=== PATIENT | female | born 1960 | race Caucasian/White ===

== ENCOUNTER 2019-06-04 06:32 | Outpatient (CLI) | payer MEDICARE, MEDICAID, SELFPAY ==
--- NOTE | ~2019-06-04 | MR_ITS ---
EXAMINATION: MR hip RT wo con DATE: 06/04/2019 07:52 INDICATION: Right hip and groin pain. TECHNIQUE: Magnetic resonance imaging (MRI) of the right hip was performed without intravenous contr ast. Sequences included full-field axial PD-weighted FS FSE and T1-weighted FSE, coronal of the pelvi s with PD-weighted FS FSE, small field of view of the right hip with axial PD-weighted FS FSE, sagit yasmeen PD-weighted FS FSE and coronal PD weighted FS FSE. Additional radial T1-weighted FGR oriented ort hogonal to the acetabular rim were obtained for evaluation of the labrum. COMPARISON: CT abdomen and pelvis dated 12/27/2018 FINDINGS: Bones/labrum/cartilage: Alignment is normal. No fracture, avascular necrosis or pathologic marrow replacing process. There i s diffuse macerated appearing degenerative tearing of the right acetabular labrum which appears thick ened with globular appearance and containing multiple small intrasubstance ganglion cysts. Mild osteo arthritis at the right hip with partial thickness cartilage loss resulting in mild nonuniform joint s pace narrowing. Focal deep fissuring with mild underlying subarticular edema at the cephalad aspect o f the acetabulum. Similar appearance although with less severe labral degeneration suggest at the lef t hip but which is not diagnostically evaluated on the larger field of view images. Likely paralabral cyst extends 1.9 cm cephalad from the anterosuperior left acetabulum measuring 1.7 x 0.7 cm in maxim al transaxial dimensions at the lateral margin of the anterior inferior iliac spine. There is mild juliann mbar levocurvature with severe spondylosis at L3-L4. Fluid: Symmetric physiologic amount of fluid within both hip joints. Soft tissues: Normal and symmetric muscle bulk and signal in the pelvis and visualized proximal thighs. Relatively symmetric mild tendinopathy with minimal underlying bursitis at the bilateral gluteus medius and mini mus tendons but without discrete tendon tear. The iliopsoas and proximal hamstring tendons are normal . Limited evaluation of visceral organs of the pelvis is unremarkable. No pathologically enlarged pe lvic/inguinal lymphadenopathy. IMPRESSION: 1. Mild right hip osteoarthritis with small region of high-grade chondral malacia the superior acetab ulum and with severe diffuse labral degeneration. 2. Similar findings suggested at the left hip with associated large para labral cyst on the larger fi eld of view images. 3. Symmetric mild gluteus medius and minimus tendinopathy without tear and with minimal underlying bu rsitis. Reviewed, dictated and finalized at location A. ORDER PERSON IMPRESSION: 1. Mild right hip osteoarthritis with small region of high-grade chondral malac ia the superior acetabulum and with severe diffuse labral degeneration. 2. Similar findings suggested at the left hip with associated large para labral cyst on the larger field of view images. 3. Symmetric mild gluteus medius and minimus tendinopathy without tear and with minimal underlying bursitis.
== END 2019-06-04 06:33 | disposition home or self-care (01) ==
LOC: ANHIMG 06:38
PROVIDERS: Visit Provider Orthopaedic Surgery
DX: M16.11 Unilateral primary osteoarthritis, right hip (principal)
CPT/HCPCS: 73721

== ENCOUNTER 2019-11-05 14:13 | Outpatient (CLI) | payer MEDICARE, MEDICAID, SELFPAY ==
--- NOTE | ~2019-11-05 | MM_ITS ---
EXAMINATION: MM screening jes BI w umesh HISTORY: Screening mammogram TECHNIQUE: Craniocaudal and mediolateral oblique 3-D tomosynthesis images were obtained and synthetic 2-D images were generated. CAD analysis was submitted and interpreted. COMPARISON: 05/05/2018 bilateral digital screening mammogram BREAST PARENCHYMAL COMPOSITION: There are scattered areas of fibroglandular density. FINDINGS: There is postoperative change from left partial mastectomy for history of left breast malig chantale. There is no evidence of suspicious mass, calcification, or architectural distortion to suggest malignancy in either breast. There has been no suspicious interval change. IMPRESSION: 1. Status post left partial mastectomy for history of breast cancer. No mammographic evidence of jaydon gnancy. 2. Recommend routine screening mammography in one year. BI-RADS Category 2: Benign finding(s). Reviewed, dictated and finalized at location A. IMPRESSION: 1. Status post left partial mastectomy for history of breast cancer. No mammogr aphic evidence of malignancy. 2. Recommend routine screening mammography in one year. BI-RADS Category 2: Benign finding(s).
== END 2019-11-05 14:14 | disposition home or self-care (01) ==
LOC: ANHIMG 14:15
PROVIDERS: PCP Nurse Practitioner Psychiatric/Mental Health; Visit Provider Internal Medicine
DX: Z12.31 Encounter for screening mammogram for malignant neoplasm of breast (principal)
CPT/HCPCS: 77063; 77067

== ENCOUNTER 2020-03-01 11:08 | Emergency (ER) | payer MEDICARE, MEDICAID, SELFPAY ==
--- NOTE | ~2020-03-01 | XR_ITS ---
EXAMINATION: XR chest 2V EXAM DATE: 03/01/2020 12:44 INDICATION: Palpitations and shortness of air. TECHNIQUE: Frontal and lateral projections of the chest obtained and reviewed. Comparison is made to prior examination from 04/27/2017. FINDINGS: The lungs are clear. There are no pleural effusions. The cardiomediastinal silhouette is within normal limits. There is no pneumothorax suspected. The bones and soft tissues are unremarkab le. IMPRESSION: No acute cardiopulmonary findings. Reviewed, dictated and finalized at location A. R HOT WATER INSTALLER
--- NOTE | 2020-03-01 11:14 | ECG_ITS ---
Measurements Intervals [place] Rate: 84 P: 65 KS: 139 QRS: 76 QRSD: 81 T: 60 QT: 353 QTc: 419 Interpretive Statements SINUS RHYTHM POSSIBLE LEFT ATRIAL ENLARGEMENT CANNOT RULE OUT SEPTAL INFARCT, AGE INDETERMINATE BASELINE ARTIFACT- I, II, III, AVR, AVL, AVF ABNORMAL ECG Electronically Signed On 03-05-2020 12:09:49 [employer]ERING CHEF by Maxim Wahl D.O.
[2020-03-01 11:26] VITALS: BP 110/85; PULSE 84; RESP 20; TEMP 36.4; O2SAT 100
[2020-03-01 12:42] LABS: Basophils Absolute Auto 0.1 K/mm3 (0.0-0.1); Basophils Percent Auto 0.6 % (0.2-1.2); Eosinophils Absolute Auto 0.1 K/mm3 (0-0.3); Eosinophils Percent Auto 1.5 % (0-4.4); Hematocrit 49.5 % (37.0-47.0); Hemoglobin 16.9 g/dL (12.0-15.0); Immature Granulocyte Absolute 0.03 K/mm3 (0.00-0.031); Immature Granulocyte Percent A 0.3 % (0-0.5); Lymphocytes Absolute Auto 1.51 K/mm3 (0.9-3.2); Lymphocytes Percent Auto 15.8 % (18.3-44.2); Mean Corpuscular HGB Conc 34.1 g/dl (32-36); Mean Corpuscular Hemoglobin 32.6 pg (26-34); Mean Corpuscular Volume 95.4 fl (80-100); Mean Platelet Volume 9.3 fl (7.4-10.4); Monocytes Absolute Auto 0.9 K/mm3 (0.1-0.6); Monocytes Percent Auto 9.8 % (2.6-8.5); Neutrophils Absolute Auto 6.9 K/mm3 (1.3-6.7); Platelet Count Result 291 k/mm3 (150-375); Red Blood Count 5.19 M/mm3 (4.2-5.4); Red Cell Distribution Width 13.9 % (11.5-14.5); White Blood Count 9.6 K/mm3 (4.5-10.0)
[2020-03-01 12:54] LABS: Anion Gap 9 mmol/L (8-16); Blood Urea Nitrogen 14 mg/dL (7-17); Calcium 9.4 mg/dL (8.4-10.2); Carbon Dioxide 26 mmol/L (22-30); Chloride 107 mmol/L (98-107); Estimated CRCL calculation 63 ml/min; Estimated Glomerular Filt Rate > 60; Glucose 93 mg/dL (65-105); Magnesium 1.9 mg/dL (1.6-2.3); Potassium 4.5 mmol/L (3.4-5.0); Sodium 142 mmol/L (137-145)
--- NOTE | 2020-03-01 12:56 | ED.ARRPALP ---
HPI - Arrhythmia/Palpitations General Chief Complaint: Arrhythmia/Palpitations Stated Complaint: cp/palpitations Time Seen by Provider: 03/01/20 12:04 History of Present Illness HPI narrative: Patient is a 59-year-old female who presents ER with heart palpitations. EMS recognized the rhythm to be SVT. They gave her 6 of adenosine which converted her rhythm. Patient regimen was having shortness of breath that was welling up to behind her eyes. No chest pain or chest pressure. She felt like she had just run a long distance. She has had issues with this since she was a young woman. She sees a quill stripper and takes metoprolol 25 mg to help control her heart rate. She is typically able to controlled on her own but could not today. She reports that she has paroxysmal atrial tachycardia. Related Data Home Medications Medication Instructions Recorded Confirmed venlafaxine 75 mg tablet,extended 75 mg PO DAILY 03/06/19 release 24 hr anastrozole 1 mg tablet 1 mg PO DAILY 03/07/19 ropinirole 1 mg tablet 1 mg PO BID 03/07/19 umeclidinium 62.5 mcg/actuation 1 inhalation INHALATION DAILY 03/07/19 blister powder for inhalation cilostazol mg 03/01/20 metoprolol succinate PO 03/01/20 Allergies Allergy/AdvReac Type Severity Reaction Status Date / Time latex Allergy Intermediate Rash Verified 05/23/19 08:25 oxycodone Allergy Intermediate Rash Verified 05/23/19 08:25 Penicillins Allergy Unknown Hives Verified 05/23/19 08:25 Review of Systems Review of Systems: All systems reviewed & are unremarkable except as noted in HPI and below Constitutional: Constitutional: Denies chills, Denies fever(s) and Denies weakness ENT: Denies nasal congestion and Denies sore throat Cardiovascular: Cardiovascular: Denies chest pain, Reports rapid heart rate and Denies radiating jaw, neck or arm pain Respiratory: Respiratory: Denies cough, Reports dyspnea and Denies wheezing Gastrointestinal: Gastrointestinal: Denies abdominal pain, Denies nausea and Denies vomiting [facility] Past Medical History Medical History (Updated 03/01/20 @ 13:36 by Roc Mix MD) Anemia Anxiety Breast cancer COPD (chronic obstructive pulmonary disease) Depression Inflammatory arthritis SVT (supraventricular tachycardia) Surgical History Surgical History H/O section H/O lumpectomy H/O oral surgery H/O skin graft Family History Family History Mother Breast cancer Father Cirrhosis Social History Social History Smoking packs per day: 1 Smoking cigarettes per day: 20.0 Years smoked: 45 Smoking pack-years: 45.00 Smoking status: Current every day smoker Tobacco type: cigarettes Alcohol intake: current Exam Narrative: Exam Narrative: GENERAL: Well-appearing, well-nourished, and in no acute distress. HEAD: Normocephalic, atraumatic. CHEST: Clear to auscultation. No respiratory distress. HEART: Regular rate and rhythm. Normal peripheral pulses. ABDOMEN: Soft, nontender, nondistended. EXTREMITIES: Normal range of motion. No edema. SKIN: Warm, dry, no rash. NEURO: Alert and oriented x3. PSYCH: Normal mood and affect. Course Course Emergency Course: Patient resting comfortably and informed of results. Discussed discharge plan which she verbalized. I have spoken with the nurse practitioner on-call for the patient's quill stripper. He recommends increasing the metoprolol from 25 mg to 50 mg. She should go back to 25 mg if she is becoming lightheaded or having low blood pressures. Patient should follow up with her quill stripper after Thanksgiving and will likely need referral to an case management assistant. Patient does not need a refill of her own medication as she has plenty where she can just take 2 tablets at a time. Vital Signs Vital signs: Vital Signs
[2020-03-01 12:57] VITALS: BP 104/77; PULSE 74; RESP 14; TEMP 36.7; O2SAT 98
[2020-03-01 14:12] VITALS: BP 105/74; PULSE 77; RESP 17; O2SAT 97
== END 2020-03-01 14:12 | disposition home or self-care (01) ==
PROVIDERS: Emergency Provider Emergency Medicine; PCP Nurse Practitioner Psychiatric/Mental Health
DX: I47.1 Supraventricular tachycardia (principal); Z86.2 Personal history of diseases of the blood and blood-forming organs and certain disorders involving the immune mechanism; F41.9 Anxiety disorder, unspecified; Z85.3 Personal history of malignant neoplasm of breast; J44.9 Chronic obstructive pulmonary disease, unspecified; F32.9 Major depressive disorder, single episode, unspecified; F17.210 Nicotine dependence, cigarettes, uncomplicated
CPT/HCPCS: 36415; 71046; 80048; 83735; 85025; 93005; 99283

== ENCOUNTER 2020-03-30 23:42 | Emergency (ER) | payer MEDICARE, MEDICAID, SELFPAY ==
--- NOTE | ~2020-03-30 | XR_ITS ---
EXAMINATION: XR knee RT min 4V DATE: 03/31/2020 01:00 INDICATION: Right knee pain TECHNIQUE: Four views of the right knee were obtained. COMPARISON: 08/18/2016 FINDINGS: Alignment is normal. No fracture or osteochondral lesion. There is mild tricompartmental os teoarthritis characterized by tiny marginal osteophytes. No joint effusion/synovitis. Soft tissues a re unremarkable. IMPRESSION: 1. No acute osseous abnormality. Reviewed, dictated and finalized at location A. END JAVA DEVELOPER
--- NOTE | ~2020-03-30 | XR_ITS ---
EXAMINATION: XR hip RT 2V w AP pelvis INDICATION: Right hip pain TECHNIQUE: AP view the pelvis and two views of the right hip are obtained. COMPARISON: 08/18/2016 FINDINGS: Bone alignment is normal. There is mild osteoarthritis of the hips. No fracture is identifi ed. Phleboliths are present in the pelvis. There is moderate lumbar spondylosis. IMPRESSION: 1. No acute osseous abnormality. Reviewed, dictated and finalized at location A. ANESTHETIST
[2020-03-30 23:50] VITALS: BP 113/62; PULSE 61; RESP 14; TEMP 36.4; O2SAT 96
[2020-03-31] MEDS: HYDROcodone/acetaminophen (*CRX) 5-325 MG TABLET 2 TAB PO (00:23)
--- NOTE | 2020-03-31 01:38 | ED.GENADULT ---
HPI - General Adult General Chief complaint: Extremity Injury, Lower Stated complaint: right leg pain Time Seen by Provider: 03/31/20 00:07 History of Present Illness HPI narrative: Patient is a 59-year-old female who presents the emergency department chief complaint of right knee pain. Patient states that she has had pain in her right knee radiated up into her right hip for 10 days. The patient states the pain has been getting worse. Patient states the pain is worse with movement and improved with rest. The patient denies any known trauma. Patient states that she is not had any swelling of the knee denies fever denies redness denies cellulitis. Related Data Home Medications Medication Instructions Recorded Confirmed venlafaxine 75 mg tablet,extended 75 mg PO DAILY 03/06/19 release 24 hr anastrozole 1 mg tablet 1 mg PO DAILY 03/07/19 ropinirole 1 mg tablet 1 mg PO BID 03/07/19 umeclidinium 62.5 mcg/actuation 1 inhalation INHALATION DAILY 03/07/19 blister powder for inhalation cilostazol mg 03/01/20 metoprolol succinate PO 03/01/20 Allergies Allergy/AdvReac Type Severity Reaction Status Date / Time latex Allergy Intermediate Rash Verified 03/30/20 23:52 oxycodone Allergy Intermediate Rash Verified 03/30/20 23:52 Penicillins Allergy Unknown Hives Verified 03/30/20 23:52 Review of Systems Review of Systems: Narrative: A 10 system review of systems was completed on the patient and is negative except for what is stated in the HPI. Nursing and ancillary documentation was reviewed. [facility] Past Medical History Medical History Anemia Anxiety Breast cancer COPD (chronic obstructive pulmonary disease) Depression Inflammatory arthritis SVT (supraventricular tachycardia) Surgical History Surgical History H/O section H/O lumpectomy H/O oral surgery H/O skin graft Family History Family History Mother Breast cancer Father Cirrhosis Social History Social History Smoking packs per day: 1 Smoking cigarettes per day: 20.0 Years smoked: 45 Smoking pack-years: 45.00 Smoking status: Current every day smoker Tobacco type: cigarettes Alcohol intake: current Exam Narrative: Exam Narrative: GENERAL: Well-appearing, well-nourished, and in no acute distress. HEAD: Normocephalic, atraumatic. EYES: PERRLA and EOMI. ENT: Nares clear, no rhinorrhea or epistaxis. Mucous membranes moist. NECK: Supple. CHEST: Clear to auscultation. No respiratory distress. HEART: Regular rate and rhythm. No murmur heard. Normal peripheral pulses. ABDOMEN: Soft, nontender, nondistended, normal active bowel sounds. EXTREMITIES: Normal range of motion. No edema. There is tenderness to palpation of the right knee there is no effusion present on exam SKIN: Warm, dry, no rash. NEURO: No focal deficits. Alert and oriented x3. PSYCH: Normal mood and affect. Course Course Emergency Course: Hip x-ray and knee x-ray showed no evidence of fracture Vital Signs Vital signs: Vital Signs Temperature 36.4 C L 03/30/20 23:50 Pulse Rate 61 03/30/20 23:50 Respiratory Rate 14 03/30/20 23:50 Blood Pressure 113/62 03/30/20 23:50 Pulse Oximetry 96 03/30/20 23:50 Temperature 36.4 C L 03/30/20 23:50 Pulse Rate 61 03/30/20 23:50 Respiratory Rate 14 03/30/20 23:50 Blood Pressure 113/62 03/30/20 23:50 Pulse Oximetry 96 03/30/20 23:50 Medical Decision Making Vital Signs Vital Signs: Vital Signs Temperature 36.4 C L 03/30/20 23:50 Pulse Rate 61 03/30/20 23:50 Respiratory Rate 14 03/30/20 23:50 Blood Pressure 113/62 03/30/20 23:50 Pulse Oximetry 96 03/30/20 23:50 Temperature 36.4 C L 03/30/20 23:50 Pulse Rate 61 03/30
[2020-03-31 02:08] VITALS: BP 119/56; PULSE 62; RESP 18; O2SAT 96
== END 2020-03-31 02:12 | disposition home or self-care (01) ==
PROVIDERS: Emergency Provider Emergency Medicine; PCP Nurse Practitioner Psychiatric/Mental Health
DX: M23.91 Unspecified internal derangement of right knee (principal); Z86.2 Personal history of diseases of the blood and blood-forming organs and certain disorders involving the immune mechanism; Z85.3 Personal history of malignant neoplasm of breast; J44.9 Chronic obstructive pulmonary disease, unspecified; M19.90 Unspecified osteoarthritis, unspecified site; F17.210 Nicotine dependence, cigarettes, uncomplicated
CPT/HCPCS: 73502; 73564; 99284; A9270

== ENCOUNTER 2020-04-21 14:29 | Outpatient (CLI) | payer MEDICARE, MEDICAID, SELFPAY ==
--- NOTE | ~2020-04-21 | MR_ITS ---
EXAMINATION: MR knee RT wo con DATE: 04/21/2020 15:38 INDICATION: Right knee pain TECHNIQUE: Magnetic resonance imaging (MRI) of the right knee was performed without intravenous contr ast. Sequences included coronal PD-weighted FSE, coronal PD-weighted FS FSE, sagittal T2-weighted FS E, sagittal PD-weighted FS FSE and axial PD weighted fat saturated FSE. COMPARISON: Right knee radiographs dated 03/31/2020 FINDINGS: Medial compartment: Medial meniscus is normal. Deep chondral fissuring along the lateral margin of the anterior weightbea ring medial femoral condyle with small region of mild underlying cortical irregularity and subarticul ar edema. Lateral compartment: Lateral meniscus is normal. Articular cartilage is normal. Patellofemoral compartment: Deep chondral fissuring involving greater than 50% the cartilage thickness at the medial and lateral patellar facets, the former with small focus of underlying subarticular edema. Trochlear cartilage ap pears relatively preserved. Ligaments and tendons: Anterior and posterior cruciate ligaments are normal. The medial collateral ligament and fibular barbara ateral ligament complex are normal. Small enthesophyte at the superficial patellar insertion of the d istal quadriceps tendon. The extensor mechanism is otherwise normal. The visualized medial and latera l hamstring tendons as well as the iliotibial band are normal. Fluid: Physiologic amount of fluid in the joint space. No loose osteochondral bodies identified. There is a multilobulated ganglion cysts arising from the proximal tibiofibular articulation which extends infer iorly along the lateral metaphyseal region of the proximal tibia. There is a second smaller intraosse ous ganglion cyst which appears to arise from the popliteal recess and extending into the posterior a spect of the lateral tibial plateau. Osseous/other: Otherwise normal marrow signal with no fracture or pathologic marrow replacing process. IMPRESSION: 1. Mild osteoarthritis with small regions of high-grade chondromalacia at the patella and anterior we ightbearing medial femoral condyle. Reviewed, dictated and finalized at location A. AL FITTER IMPRESSION: 1. Mild osteoarthritis with small regions of high-grade chondromalacia at the p atella and anterior weightbearing medial femoral condyle.
== END 2020-04-21 14:30 | disposition home or self-care (01) ==
PROVIDERS: PCP Nurse Practitioner Psychiatric/Mental Health; Visit Provider Nurse Practitioner Psychiatric/Mental Health
DX: M17.11 Unilateral primary osteoarthritis, right knee (principal)
CPT/HCPCS: 73721

== ENCOUNTER 2020-12-10 08:43 | Outpatient (CLI) | payer OTHER, SELFPAY ==
[2020-12-10 13:25] LABS: SARS-CoV-2 Ag Negative (Negative)
== END 2020-12-10 08:44 | disposition home or self-care (01) ==
LOC: CHSLAB 08:50
PROVIDERS: PCP Nurse Practitioner Psychiatric/Mental Health; Visit Provider Nurse Practitioner Psychiatric/Mental Health
DX: Z20.822 Contact with and (suspected) exposure to COVID-19 (principal)
CPT/HCPCS: 87426; C9803

== ENCOUNTER 2021-01-08 08:07 | Outpatient (CLI) | payer MEDICARE, OTHER, SELFPAY ==
[2021-01-08 09:23] LABS: SARS-CoV-2 Ag Negative (Negative)
== END 2021-01-08 08:08 | disposition home or self-care (01) ==
LOC: CHSLAB 08:10
PROVIDERS: PCP Nurse Practitioner Psychiatric/Mental Health; Visit Provider Nurse Practitioner Psychiatric/Mental Health
DX: Z20.822 Contact with and (suspected) exposure to COVID-19 (principal)
CPT/HCPCS: 87426; C9803

== ENCOUNTER 2021-01-28 12:32 | Outpatient (CLI) | payer MEDICARE, SELFPAY ==
[2021-01-28 13:45] LABS: SARS-CoV-2 RNA PCR Negative (Negative)
== END 2021-01-28 12:33 | disposition home or self-care (01) ==
LOC: CHSLAB 12:36
DX: J02.9 Acute pharyngitis, unspecified (principal); R05.9 Cough, unspecified
CPT/HCPCS: 87081; 87880; C9803; U0003; U0005

== ENCOUNTER 2021-12-02 09:44 | Outpatient (CLI) | payer OTHER, SELFPAY ==
--- NOTE | ~2021-12-02 | XR_ITS ---
EXAMINATION: XR lumbar spine 2-3V DATE: 12/02/2021 10:43 INDICATION: Low back pain TECHNIQUE: Anteroposterior and lateral views of the lumbar spine, and cone-down lateral view of the l umbosacral junction were obtained. COMPARISON: CT, 12/27/2018 FINDINGS: There is severe loss of intervertebral disc space height at L3-4. The vertebral body height s and alignment are normal. There is moderate facet osteoarthritis of the lower lumbar spine. There i s no fracture. IMPRESSION: 1. Severe lumbar spondylosis at L3-4 without acute findings or significant interval change. Reviewed, dictated and finalized at location B. IMPRESSION: 1. Severe lumbar spondylosis at L3-4 without acute findings or significant inte rval change.
--- NOTE | ~2021-12-02 | MM_ITS ---
EXAMINATION: MM screening jes BI w umesh HISTORY: Screening TECHNIQUE: Craniocaudal and mediolateral oblique 3-D tomosynthesis images were obtained and synthetic 2-D images were generated. CAD analysis was submitted and interpreted. COMPARISON: Comparison to multiple prior studies sequentially, with oldest reviewed study dated 05/05. BREAST PARENCHYMAL COMPOSITION: There are scattered areas of fibroglandular density. FINDINGS: There is no evidence of suspicious mass, calcification, or architectural distortion to sugg est malignancy in either breast. There has been no suspicious interval change. IMPRESSION: 1. No mammographic evidence of malignancy. 2. Recommend routine screening mammography in one year. BI-RADS Category 1: Negative Reviewed, dictated and finalized at location A.
== END 2021-12-02 09:45 | disposition home or self-care (01) ==
LOC: CHSIMG 09:48
PROVIDERS: PCP Nurse Practitioner Family; Visit Provider Nurse Practitioner Family
DX: M54.9 Dorsalgia, unspecified (principal); Z12.31 Encounter for screening mammogram for malignant neoplasm of breast
CPT/HCPCS: 72100; 77063; 77067

== ENCOUNTER 2022-03-02 12:00 | Outpatient (CLI) | payer OTHER, SELFPAY ==
--- NOTE | ~2022-03-02 | XR_ITS ---
XR shoulder LT min 2V 03/02/2022 12:32 Indication: Left shoulder pain Procedure: 5 views left shoulder Comparison: No prior studies for comparison. Findings: There is mild glenohumeral joint osteoarthritis. There is anatomic alignment. Normal minera lization. No soft tissue abnormality. No fracture or traumatic malalignment. Impression: 1: Mild left glenohumeral joint osteoarthritis. Reviewed, dictated and finalized at location B. SALES CONSULTANT Impression: 1: Mild left glenohumeral joint osteoarthritis.
--- NOTE | ~2022-03-02 | XR_ITS ---
XR_CERV2-3V_CR DATE: 03/02/2022 12:32 INDICATION: Left shoulder pain radiating into neck. Headache. TECHNIQUE: AP, open-mouth, lateral views COMPARISON: None FINDINGS: C1 and C2 are normally aligned and the odontoid process is intact. No fracture or dislocati on or locked facet or prevertebral soft tissue swelling. Mild degenerative disease at C5-6 with minimal posterior spurring. IMPRESSION: Mild degenerative disc disease at C5-6 Reviewed, dictated and finalized at Location A. Reviewed, dictated and finalized at location A. UTATOR TESTER
[2022-03-02 12:17] LABS: Appearance Urine Slightly Cloudy (Clear); Bilirubin Urine Negative (Negative); Glucose Urine UA Trace (Negative); Ketones Urine Negative (Negative); Leukocyte Esterase Ur 3+ LEU/UL (Negative); Nitrate Urine Positive (Negative); Protein Urine 1+ (Negative); Specific Grav Ur 1.025 (1.010-1.020); pH Urine 5.5 (5.0-8.0)
[2022-03-02 12:50] LABS: Add Urine Microscopic? YES; Bacteria Urine 1+ /hpf; Blood Urine Trace-Intact (Negative); Color Urine Dark Orange (Yellow); RBC Urine 0-2 /hpf (0-2); Squamous Epithelial Cell Urine Few /hpf (Few); WBC Urine 31-50 /hpf (0-3)
== END 2022-03-02 12:01 | disposition home or self-care (01) ==
LOC: CHSLAB 12:03
PROVIDERS: PCP Nurse Practitioner Family; Visit Provider Nurse Practitioner Family
DX: M54.2 Cervicalgia (principal); M25.512 Pain in left shoulder; Z87.898 Personal history of other specified conditions; R82.90 Unspecified abnormal findings in urine
CPT/HCPCS: 72040; 73030; 81001; 87086; 87088; 87186

== ENCOUNTER 2022-07-22 09:49 | Outpatient (CLI) | payer OTHER, SELFPAY ==
[2022-07-29 09:42] LABS: Amphetamines NEGATIVE ng/mL (<500); Barbiturates NEGATIVE ng/mL (<300); Benzodiazepines NEGATIVE ng/mL (<100); Cocaine Metabolite NEGATIVE ng/mL (<100); Codeine NEGATIVE ng/mL (<50); Hydrocodone 510 ng/mL (<50); Hydromorphone 160 ng/mL (<50); Marijuana Metabolite 1500 ng/mL (<5); Methadone Metabolite NEGATIVE ng/mL (<100); Morphine NEGATIVE ng/mL (<50); Norhydrocodone 520 ng/mL (<50); Opiates POSITIVE ng/mL (<100); Oxidant NEGATIVE mcg/mL (<200); pH 5.9 (4.5-9.0)
== END 2022-07-22 09:50 | disposition home or self-care (01) ==
LOC: CHSLAB 09:51
PROVIDERS: PCP Nurse Practitioner Family; Visit Provider Nurse Practitioner Family
DX: G89.4 Chronic pain syndrome (principal)
CPT/HCPCS: 80299; 80349; 80361; G0480

== ENCOUNTER 2022-09-29 12:50 | Outpatient (CLI) | payer OTHER, SELFPAY ==
--- NOTE | ~2022-09-29 | XR_ITS ---
XR hip RT min 2V 09/29/2022 13:28 Indication: Right hip pain Procedure: 2 views right hip Comparison: 03/31/2020 Findings: Moderate osteoarthritis of the right hip. No fracture, subluxation or dislocation. There is osteitis pubis. No soft tissue abnormality. No foreign bodies. Impression: 1: Moderate osteoarthritis of the right hip. Reviewed, dictated and finalized at location [] Impression: 1: Moderate osteoarthritis of the right hip.
--- NOTE | ~2022-09-29 | XR_ITS ---
Right Knee Technique: AP and lateral views were obtained. Clinical History: Pain Findings: No fracture or dislocation is seen. Osseous alignment is anatomic. Joint spaces are preserv ed without degenerative or erosive change. Soft tissues are unremarkable. No joint effusion is seen. Impression: Unremarkable right knee radiographs. Reviewed, dictated and finalized at location . Impression: Unremarkable right knee radiographs.
--- NOTE | 2022-09-29 13:14 | ECG_ITS ---
Measurements Intervals [place] Rate: 58 P: 81 KS: 141 QRS: 91 QRSD: 77 T: 79 QT: 402 QTc: 398 Interpretive Statements SINUS BRADYCARDIA BORDERLINE RIGHT AXIS DEVIATION [QRS AXIS > 90] COMPARED TO ECG 03/01/2020 11:14:54 SINUS BRADYCARDIA NOW PRESENT Electronically Signed On 09-29-2022 20:03:22 CDT by Sandy Gibbs M.D.
[2022-09-29 13:15] LABS: Basophils Absolute Auto 0.04 K/mm3 (0.00-0.10); Basophils Percent Auto 0.6 % (0.0-1.0); Eosinophils Absolute Auto 0.11 K/mm3 (0.02-0.50); Eosinophils Percent Auto 1.6 % (1.0-6.0); Hematocrit 42.6 % (35.0-49.0); Hemoglobin 13.9 g/dL (12.0-15.0); Immature Granulocyte Absolute 0.02 K/mm3 (0.00-0.00); Immature Granulocyte Percent A 0.3 % (0.0-0.0); Lymphocytes Absolute Auto 0.91 K/mm3 (1.10-4.50); Lymphocytes Percent Auto 13.1 % (18.0-42.0); Mean Corpuscular HGB Conc 32.6 g/dL (32.0-36.0); Mean Corpuscular Volume 101.2 fL (78.0-102.0); Mean Platelet Volume 9.7 fl (9.2-11.8); Monocytes Absolute Auto 0.64 K/mm3 (0.10-0.90); Monocytes Percent Auto 9.2 % (2.0-11.0); Neutrophils Absolute Auto 5.2 K/mm3 (1.7-7.2); Neutrophils Percent Auto 75.2 % (50.0-70.0); Platelet Count Result 274 K/mm3 (150-420); Red Blood Count 4.21 M/mm3 (4.20-5.40); Red Cell Distribution Width 13.9 % (11.6-14.4); White Blood Count 6.9 K/mm3 (4.8-10.8)
[2022-09-29 13:21] LABS: Appearance Urine Clear (Clear); Bilirubin Urine 2+ (Negative); Blood Urine Negative (Negative); Color Urine Yellow (Yellow); Glucose Urine UA Negative (Negative); Ketones Urine 1+ (Negative); Leukocyte Esterase Ur Negative LEU/UL (Negative); Nitrate Urine Negative (Negative); Protein Urine Negative (Negative); Specific Grav Ur >= 1.030 (1.010-1.020); Urobilinogen Urine 0.2 mg/dL (0.2-1.0); pH Urine 5.5 (5.0-8.0)
[2022-09-29 13:27] LABS: Add Urine Microscopic? YES; RBC Urine 0-2 /hpf (0-2); Squamous Epithelial Cell Urine Few /hpf (Few); WBC Urine 0-3 /hpf (0-3)
[2022-09-29 13:28] LABS: Bacteria Urine 1+ /hpf; Mucus Urine Few /lpf
[2022-09-29 13:44] LABS: Alanine Aminotransferase 25 U/L (14-59); Albumin Level 3.9 g/dL (3.4-5.0); Alkaline Phosphatase 89 U/L (46-116); Anion Gap 9 mmol/L (8-16); Aspartate Amino Transferase 26 U/L (15-37); Bilirubin,Total 0.4 mg/dL (0.00-1.00); Blood Urea Nitrogen 20 mg/dL (7-18); Calcium 9.3 mg/dL (8.5-10.1); Carbon Dioxide 30 mmol/L (21-32); Chloride 103 mmol/L (98-108); Estimated Glomerular Filt Rate 59; Glucose 177 mg/dL (70-99); Osmolality Calculated 300 mOsm/kg (285-295); Potassium 4.4 mmol/L (3.5-5.1); Sodium 142 mmol/L (136-145); Total Protein 7.2 g/dL (6.4-8.2)
== END 2022-09-29 12:51 | disposition home or self-care (01) ==
PROVIDERS: PCP Nurse Practitioner Family; Visit Provider Nurse Practitioner Family
DX: Z01.818 Encounter for other preprocedural examination (principal); M25.551 Pain in right hip; M25.561 Pain in right knee; R00.1 Bradycardia, unspecified
CPT/HCPCS: 36415; 73502; 73560; 80053; 81001; 85025; 93005

== ENCOUNTER 2022-10-05 11:36 | Outpatient (CLI) | payer OTHER, SELFPAY ==
--- NOTE | ~2022-10-05 | XR_ITS ---
Clinical Indication: Preoperative evaluation, COPD PA and lateral views of the chest: Comparison: 03/01/2020 Findings: The lungs are clear, without evidence of focal consolidation or pleural effusion. Cardiome diastinal silhouette is within normal limits. Bones and soft tissues are unremarkable. Impression: Normal chest. Reviewed, dictated and finalized at [facility]. Impression: Normal chest.
[2022-10-05 12:39] LABS: Hemoglobin A1C 5.8 % (<5.7)
[2022-10-05 12:47] LABS: Glucose 124 mg/dL (70-99)
== END 2022-10-05 11:37 | disposition home or self-care (01) ==
PROVIDERS: Family Medicine; PCP Nurse Practitioner Family; Visit Provider Nurse Practitioner Family
DX: Z01.818 Encounter for other preprocedural examination (principal)
CPT/HCPCS: 36415; 71046; 82947; 83036; 88305

== ENCOUNTER 2022-10-06 06:32 | Outpatient (NON) | payer OTHER, SELFPAY | END 2022-10-06 06:33 | disposition home or self-care (01) | LOC: CHSLAB 06:36 | PROVIDERS: Visit Provider Family Medicine | DX: L82.1 Other seborrheic keratosis (principal) | CPT/HCPCS: 88305 ==

== ENCOUNTER 2022-11-03 13:19 | Outpatient (NON) | payer OTHER, SELFPAY | END 2022-11-03 13:20 | disposition home or self-care (01) | LOC: CHSLAB 13:22 | PROVIDERS: Visit Provider Nurse Practitioner Family | DX: Z12.4 Encounter for screening for malignant neoplasm of cervix (principal); Z78.0 Asymptomatic menopausal state | CPT/HCPCS: 88175; G0145 ==

== ENCOUNTER 2022-11-12 08:25 | Outpatient (CLI) | payer OTHER, SELFPAY ==
--- NOTE | ~2022-11-12 | MM_ITS ---
EXAMINATION: MM diagnostic jes BI w umesh HISTORY: Left breast lump at 6:00 TECHNIQUE: ML, MLO and CC 3-D tomosynthesis images of both breasts were performed and synthetic 2-D i mages were generated. CAD analysis was submitted and interpreted. COMPARISON: 2bilateral screening mammogram 11/05/2019bilateral screening mammogram BREAST PARENCHYMAL COMPOSITION: The breasts are almost entirely fatty. FINDINGS: There are surgical clips and some prominent calcified fat necrosis at the lower central lef t breast, consistent with postoperative changes including calcified fat necrosis. No suspicious mass, architectural distortion, malignant calcification, skin thickening or retraction or significant new or developing density of either breast is detected. IMPRESSION: 1. Benign postoperative changes; no mammographic evidence of malignancy or significant change since 2. Routine annual mammographic screening is recommended BI-RADS Category 2: Benign finding(s). Reviewed, dictated and finalized at location A. IMPRESSION: 1. Benign postoperative changes; no mammographic evidence of malignancy or sign ificant change since 11/05/2019 2. Routine annual mammographic screening is recommended BI-RADS Category 2: Benign finding(s).
== END 2022-11-12 08:26 | disposition home or self-care (01) ==
LOC: CHSIMG 08:26
PROVIDERS: PCP Nurse Practitioner Family; Visit Provider Nurse Practitioner Family
DX: N63.23 Unspecified lump in the left breast, lower outer quadrant (principal); N64.4 Mastodynia; Z98.890 Other specified postprocedural states
CPT/HCPCS: 77062; 77066; G0279

== ENCOUNTER 2023-02-21 15:51 | Outpatient (CLI) | payer OTHER, SELFPAY ==
--- NOTE | ~2023-02-21 | XR_ITS ---
AP view of the pelvis and AP and lateral views of the bilateral hips Clinical history: Pain Findings: No acute fracture or dislocation is seen. There is moderate degenerative change of the supe rior right hip joint, with superior right hip joint space narrowing. Left hip joint space is preserve d. Soft tissues are unremarkable. Impression: Moderate osteoarthrosis of the right hip joint. Reviewed, dictated and finalized at location M. PLOW OPERATOR Impression: Moderate osteoarthrosis of the right hip joint.
== END 2023-02-21 15:52 | disposition home or self-care (01) ==
PROVIDERS: PCP Nurse Practitioner Family; Visit Provider Physician Assistant
DX: M25.552 Pain in left hip (principal); M16.11 Unilateral primary osteoarthritis, right hip
CPT/HCPCS: 73521

== ENCOUNTER 2023-08-03 14:42 | Outpatient (CLI) | payer MEDICARE, MEDICAID, SELFPAY ==
--- NOTE | 2023-08-03 14:51 | ECG_ITS ---
SEE SCANNED COPY FOR CONFIRMED REPORT MTDD
== END 2023-08-03 14:43 | disposition home or self-care (01) ==
PROVIDERS: PCP Nurse Practitioner Family; Visit Provider Nurse Practitioner Family
DX: I21.29 ST elevation (STEMI) myocardial infarction involving other sites (principal); R42 Dizziness and giddiness; R00.1 Bradycardia, unspecified
CPT/HCPCS: 93005

== ENCOUNTER 2023-08-12 16:23 | Outpatient (CLI) | payer MEDICARE, MEDICAID, SELFPAY ==
[2023-08-12 16:43] LABS: Urine Cotinine NEGATIVE
== END 2023-08-12 16:24 | disposition home or self-care (01) ==
LOC: ANHLAB 16:24
PROVIDERS: PCP Nurse Practitioner Family; Visit Provider Orthopaedic Surgery
DX: Z79.899 Other long term (current) drug therapy (principal)
CPT/HCPCS: 80307

== ENCOUNTER 2023-09-27 08:37 | Outpatient (CLI) | payer MEDICARE, MEDICAID, SELFPAY ==
--- NOTE | ~2023-09-27 | NM_ITS ---
EXAMINATION: NM ruth stress w perfusion DATE: 09/27/2023 10:55 INDICATION: Other forms of dyspnea TECHNIQUE: Rest images were obtained following intravenous administration of 10.1 mCi Tc99m tetrofosm in (Myoview). The patient was infused intravenously with Lexiscan (Regadenoson). Then, 31.4 mCi Tc99m tetrofosmin (Myoview) was administered intravenously, and stress images were obtained. Data was james nstructed into short axis and horizontal and vertical long axis SPECT images. Gated SPECT images were also obtained. COMPARISON: None. FINDINGS: There is no definite reversible or fixed perfusion abnormality to suggest ischemia or infar ction. There is normal left ventricular chamber size, wall motion and ejection fraction. Left ventr icular ejection fraction measures >70%. IMPRESSION: 1. Normal myocardial perfusion at rest and during stress. 2. Left ventricular ejection fraction measuring >70%. Reviewed, dictated and finalized at location A.
--- NOTE | 2023-09-27 08:40 | EST_ITS ---
Patient Info Name: Swati Flannery Age: 63 years : 1960 Gender: Female Ht: 67 in Wt: 180 lbs BSA: 1.98 m2 HR: 52 bpm BP: 149 / 65 mmHg Heart Rhythm: Sinus Rhythm Exam Date: 09/27/2023 9:57 AM Exam Location: Echo Lab Patient Status: Outpatient Admit Date: 09/27/2023 Staff Ordering Physician: Maxim Wahl DO Attending Provider: Maxim Wahl DO Exercise Technologist: Shira Hurst CT Exercise Physician: Maxim Wahl DO Exam Type: CA stress ruth w NM Study Info Indications Z01.810 - Encounter for preprocedural cardiovascular examination A regadenoson stress test was performed. Summary 1. 1. Negative lexiscan stress test for ischemic ST changes by ECG criteria. 2. 2. Stable hemodynamics throughout the test. 3. 3. Nuclear scan to follow and will be reported separately. Please correlate with it. 4. 4. Patient informed of the above results. Protocol: Lexiscan Stress ECG Details Stage: REST Duration (min): 2 min : 15 sec HR (bpm): 52 SBP (mmHg): 149 DBP (mmHg): 65 Stage: REST Duration (min): 7 min : 9 sec HR (bpm): 52 SBP (mmHg): 121 DBP (mmHg): 73 Stage: STAGE 1 Duration (min): 1 min : 0 sec HR (bpm): 78 SBP (mmHg): 113 DBP (mmHg): 73 Stage: RECOVERY Duration (min): 1 min : 0 sec HR (bpm): 77 SBP (mmHg): 113 DBP (mmHg): 73 Stage: RECOVERY Duration (min): 1 min : 43 sec HR (bpm): 77 SBP (mmHg): 124 DBP (mmHg): 73 Rest HR: 52 bpm Peak HR: 78 bpm Rest Sys BP: 121 mmHg Peak Sys BP: 124 mmHg Max Pred HR: 155 bpm % Max Pred HR: 50 % Target HR: 132 bpm Max RPP: 9,672 bpm*mmHg Termination Reason: Completed protocol Cardiac Symptoms: Shortness of breath Total Time: 1 min : 0 sec Rest Lopez BP: 73 mmHg Peak Lopez BP: 73 mmHg Total Dose: 0.4 mg Resting ECG Sinus bradycardia. Stress ECG No ST changes. Arrhythmias None. Report Signatures
== END 2023-09-27 08:38 | disposition home or self-care (01) ==
LOC: ANHCARD 08:39
PROVIDERS: PCP Nurse Practitioner Family; Visit Provider Internal Medicine Cardiovascular Disease
DX: R06.09 Other forms of dyspnea (principal); Z01.810 Encounter for preprocedural cardiovascular examination
CPT/HCPCS: 78452; 93017; A9502; J2785

== ENCOUNTER 2023-11-04 07:53 | Outpatient (CLI) | payer MEDICARE, MEDICAID, SELFPAY ==
[2023-11-04 09:37] LABS: Basophils Absolute Auto 0.1 K/mm3 (0.0-0.1); Basophils Percent Auto 0.6 % (0.2-1.2); Eosinophils Absolute Auto 0.2 K/mm3 (0-0.3); Eosinophils Percent Auto 2.6 % (0-4.4); Hematocrit 46.4 % (37.0-47.0); Hemoglobin 15.1 g/dL (12.0-15.0); Immature Granulocyte Absolute 0.03 K/mm3 (0.00-0.031); Immature Granulocyte Percent A 0.4 % (0-0.5); Lymphocytes Absolute Auto 1.25 K/mm3 (0.9-3.2); Lymphocytes Percent Auto 16.1 % (18.3-44.2); Mean Corpuscular HGB Conc 32.5 g/dl (32-36); Mean Corpuscular Hemoglobin 31.1 pg (26-34); Mean Corpuscular Volume 95.7 fl (80-100); Mean Platelet Volume 10.2 fl (7.4-10.4); Monocytes Absolute Auto 0.9 K/mm3 (0.1-0.6); Monocytes Percent Auto 11.5 % (2.6-8.5); Neutrophils Absolute Auto 5.3 K/mm3 (1.3-6.7); Neutrophils Percent Auto 68.8 % (45.5-73.1); Platelet Count Result 225 k/mm3 (150-375); Red Blood Count 4.85 M/mm3 (4.2-5.4); Red Cell Distribution Width 14.1 % (11.5-14.5); White Blood Count 7.8 K/mm3 (4.5-10.0)
[2023-11-04 09:47] LABS: Albumin Level 4.9 g/dL (3.5-5.1); Estimated Glomerular Filt Rate > 60; Glucose 96 mg/dL (65-110)
[2023-11-04 10:13] LABS: Hemoglobin A1C 5.7 % (<5.7)
[2023-11-04 10:37] LABS: Urine Cotinine NEGATIVE
[2023-11-04 10:47] LABS: MRSA (PCR) NOT DETECTED (NOT DETECTE)
== END 2023-11-04 07:54 | disposition home or self-care (01) ==
PROVIDERS: PCP Nurse Practitioner Family; Visit Provider Orthopaedic Surgery
DX: Z01.818 Encounter for other preprocedural examination (principal); M16.11 Unilateral primary osteoarthritis, right hip
CPT/HCPCS: 80307; 82040; 82565; 82947; 83036; 85025; 87641

== ENCOUNTER 2023-12-01 01:58 | Day surgery (SDC) | payer MEDICARE, MEDICAID, SELFPAY ==
[2023-11-04 08:07] VITALS: BMI 27.8
--- NOTE | 2023-11-04 08:47 | PC.NURSE ---
Report to the Outpatient Waiting Room, entrance under the green pavilion located off [facility], at time __10:30 AM on date __12/01/23 . Planned Procedure Time: ___12:30 PM . Time changes happen often and if your time is changed the preop area will call you the afternoon before. - You and your visitor will be asked to self-screen and do not enter if you have any COVID symptoms. - A mask is optional within the hospital at this time. Patients may have clear liquids (water, carbonated beverages, clear teas, apple juice) until 3 hours prior to surgery (9:30 AM)with a maximum of 20 ounces. - No food from midnight until time of surgery - Infants may have breast milk until 4 hours before surgery, infant formula 6 hours prior to surgery. - Children will be allowed to drink immediately following surgery. If applicable, please bring a bottle or sippy cup to assist with drinking. Juice, water, soda, and popsicles are readily available. For infants on formula, please bring formula the day of surgery. Pacifiers are allowed. Take the following medications with a SIP of water the morning of surgery: ___ATENOLOL,HYDROCODONE IF NEEDED FOR PAIN_, INCRUSE ELLIPTA INHALER DO NOT STOP ANY OF YOUR OTHER PRESCRIPTION MEDICATIONS PRIOR TO SURGERY ?EXCEPT THE FOLLOWING Medications to discontinue per physician HOLD MELOXICAM 7 DAYS PRE OP PER DR LOWE. LAST DOSE 11/23/23 Please no make-up, nail malay, hairspray, perfume, deodorant, or body powder the day of surgery. No jewelry (including any body piercings) or valuables the day of surgery, leave them at home. Please take a shower or bath the night before, or the morning of, surgery with an antibacterial soap. Wear comfortable, loose fitting clothing. Children are encouraged to wear pajamas. - Jewelry must be removed prior to entering the operating room. Rings and piercings that are not removed may be cut off. - The hospital will not accept responsibility for valuables. - Please leave all valuables, including medications, at home the day of surgery. If you are going home after surgery, a licensed heavy truck driver must drive you home. - NO public transportation without another adult if you receive anesthesia. - We recommend that an adult stay with you for 24 hours following discharge. - We also recommend that you do not drive, make important decision, drink alcoholic beverages, or take any drugs that were not prescribed by your health care provider for at least 24 hours after your discharge time. Follow any additional instructions given to you from your surgeon. If you or anyone in your household have experienced Covid symptoms in the past week, please notify your surgeon or the nurse liaison at the phone number below for possible testing. VERBAL AND WRITTEN instructions given to _PATIENT AND Jose R PALACIOS and asked if any additional questions and then verbalized understanding. Patient advised to call surgeon office or pre surgery nurse liaison [phone] if any additional questions.
[2023-11-04 09:07] VITALS: BP 150/93; PULSE 50; RESP 18; TEMP 36.6; O2SAT 97
[2023-12-01] VITALS (15 sets, daily range): BP systolic 85–158; BP diastolic 39–90; PULSE 57–73; RESP 12–20; TEMP 36.3–36.8; O2SAT 93–100
--- NOTE | ~2023-12-01 | XR_ITS ---
EXAMINATION: XR hip RT min 2V DATE: 12/01/2023 12:54 INDICATION: Total right hip arthroplasty. Postop. TECHNIQUE: 2 views of right hip were obtained. COMPARISON: Right hip radiograph 12/01/2023 FINDINGS: There is a total right hip arthroplasty in near-anatomic alignment. No fracture. There is g as in the soft tissues, consistent with recent surgery. IMPRESSION: 1. Total right hip arthroplasty in near-anatomic alignment. Reviewed, dictated and finalized at location A.
--- NOTE | ~2023-12-01 | XR_ITS ---
EXAMINATION: XR hip BI 2V w AP pelvis DATE: 12/01/2023 08:55 INDICATION: Hip osteoarthritis. TECHNIQUE: An anteroposterior view the pelvis and 2 views of each hip were obtained. COMPARISON: Pelvis and hip radiographs 02/21/2023 FINDINGS: There is lumbar dextroscoliosis and severe spondylosis. No fracture. There is severe osteoa rthritis of the hips. Osteitis pubis is noted. IMPRESSION: 1. Severe osteoarthritis of the hips. Reviewed, dictated and finalized at location A.
[2023-12-01] MEDS: ACETAMINOPHEN 500 MG TABLET 1000 MG PO (09:10)
[2023-12-01] MEDS: LACTATED RINGERS 1,000 ML 30 ML IV CONT (09:10)
[2023-12-01] MEDS: TRANEXAMIC ACID 1,000MG/ISO100 1,000 MG/100 ML BAG 200 MG IVPB (09:10)
--- NOTE | 2023-12-01 09:24 | WPDHPUPDATE1 ---
History and Physical Update Update Date/Time: 12/01/23 09:24 History and Physical has been reviewed, including an updated exam of the patient. There are NO changes in the patient's condition. Risks, benefits, and alternatives have been discussed and questions answered. Patient agrees to proceed with procedure.
--- NOTE | 2023-12-01 09:25 | WPDANESEPPF ---
Anes - Initial Pre Proc Eval Procedure: Operation Date: 12/01/23 10:00 Proposed Procedures p Right Total Hip Arthroplasty - Cesar Avelar MD Date/Time: 12/01/23 09:25 Surgeon: Cesar Avelar MD Pre Op Diagnosis: primary oa right hip Patient Data Age: 63 Gender: F Height: 1.7 m Weight: 80.1 kg Last Vital Signs Temp 97.4 F L 12/01/23 09:10 Pulse 57 L 12/01/23 09:10 Resp 14 12/01/23 09:10 BP 124/89 12/01/23 09:10 Pulse Ox 97 12/01/23 09:10 O2 Del Method Room Air 12/01/23 09:10 Allergies Allergy/AdvReac Type Severity Reaction Status Date / Time latex Allergy Intermediate Rash Verified 11/04/23 10:26 Penicillins Allergy Unknown Hives Verified 11/04/23 10:26 Home Medications Medication Instructions Recorded Confirmed Type rosuvastatin 20 mg tablet See Rx Instructions .Route 04/05/23 11/04/23 Rx .COMPLEX #90 tabs umeclidinium 62.5 mcg/actuation See Rx Instructions .Route 06/22/23 11/04/23 Rx blister powder for inhalation .COMPLEX #90 ea (Incruse Ellipta) atenolol 25 mg tablet See Rx Instructions .Route 08/29/23 11/04/23 Rx .COMPLEX #90 tabs hydrocodone 7.5 mg-acetaminophen 1 tablet PO Q8H PRN pain #32 tabs 10/19/23 11/04/23 Rx 325 mg tablet escitalopram oxalate 20 mg tablet 20 mg PO HS 11/04/23 11/04/23 History ketoconazole 2 % topical cream 1 applic topical DAILY 11/04/23 11/04/23 History meloxicam 15 mg tablet 15 mg PO PRN PRN Pain 11/04/23 11/04/23 History Laboratory Tests 12/01/23 08:28 Blood Type O Positive Antibody Screen Pending Patient hx anesthesia problems: none Family hx anesthesia problems: none Results Review: All pre-operative results and documents have been reviewed as part of the pre-operative evaluation. [facility] Past Medical History Medical History Anemia Anxiety Breast cancer COPD (chronic obstructive pulmonary disease) Depression Inflammatory arthritis SVT (supraventricular tachycardia) Surgical History Surgical History H/O section H/O lumpectomy H/O oral surgery H/O skin graft Family History Family History Mother Breast cancer Father Cirrhosis Social History Social History Smoking packs per day: 1 Smoking cigarettes per day: 20.0 Years smoked: 45 Smoking pack-years: 45.00 Smoking status: Former smoker Tobacco type: cigarettes Smoking end date: 08/10/23 Additional smoking assessment comments: CURRENTLY VAPES- STATES WITH NO NICOTINE Alcohol intake: current Drinks per week: 7 Substance use: current Substance use type: marijuana Other substance usage details: SMOKING MARIJUANA DAILY SINCE 2014 Last use: 11/03/23 Do You Feel Safe in your Home?: Yes Lack of Transportation: No Lack of Food: Never True Current Housing: I Have Housing Concerned About Future Housing: No Difficulty Paying Gas/Electric Bills: No Difficulty Paying for Meds: No Currently Unemployed: No Education: High School Diploma/GED Difficulty w/ Childcare or Family Care: No Living arrangements: with family Occupation/Education: unemployed Spiritual care concerns: No Anes - Eval Final PreProcedure Day of Procedure 12/01/23 09:25 Patient weight: overweight Heart: regular rate and rhythm Lungs: clear to auscultation Airway: Mallampati scale and special considerations (Upper and lower dentures. ) Neurological: alert and oriented Last oral intake: >/= 8 hours ASA classification: III Emergent: no Anesthetic plan: proceed Anesthesia type and monitoring: general ETT and standard monitoring Results Review: All pre-operative results and documents have been reviewed as part of the pre-operative evaluation. COPD, long time, now vapes daily (wi
[2023-12-01 10:00] LABS: Anion Gap 7 mmol/L (4-12); Blood Urea Nitrogen 18 mg/dL (7-17); Calcium 9.1 mg/dL (8.4-10.2); Carbon Dioxide 29 mmol/L (22-30); Chloride 101 mmol/L (98-107); Estimated CRCL calculation 66 ml/min; Estimated Glomerular Filt Rate > 60; Glucose 98 mg/dL (65-110); Potassium 4.9 mmol/L (3.4-5.0); Sodium 137 mmol/L (137-145)
[2023-12-01] MEDS: ceFAZolin 2 GM/D5W 50 ML 2 GM/50 ML BAG IVPB ×2 (10:07→18:33)
[2023-12-01] MEDS: SODIUM CHLORIDE 0.9% IV 37.7 ML, MORPHINE SULFATE INJ (*CRX) 2 MG, ROPivacaine HCL 1% 2... INFILTRATE (11:11)
--- NOTE | 2023-12-01 12:03 | W.PM.PROC2 ---
Procedure Note - Detailed Date of Procedure 12/01/23 Pre-op Diagnosis Primary djd right hip Post-op Diagnosis Same Procedure Performed Right Total Hip Arthroplasty Surgeon Cesar Avelar MD [employer] Marisol Bonilla PA-C Anesthesia General Findings Mild dysplasia with long neck, valgus angle, normal anteversion on the femur. Mild decreased [place] acetabular version. Correction performed. Small stature. Description of Procedure The patient was given preoperative antibiotics. A general anesthetic was administered. The patient was carefully placed in the lateral decubitus position on the PEG board. The shoulders and hips were carefully positioned for component and leg length positioning reference. The hip was prepped and draped in the usual sterile fashion. A longitudinal incision was created over the posterior aspect of the greater trochanter. Careful dissection was brought down through the deep fascia with electrocautery. A minimally invasive optimized posterior approach to the hip was performed. The short external rotators and capsule were taken down in an L-shaped capsulotomy. The tissue was tagged for later repair using number 2 high strength suture. The femoral neck was measured and taken in situ. The femoral head was removed. The acetabulum was carefully exposed. The inferior capsule was released. The labrum was resected. The acetabulum was sequentially reamed to one over the intended cup size. The cup was impacted into position with excellent press-fit. Typical anatomic landmarks, including the bony contact points as well as the inferior transverse acetabular ligament were used to confirm cup positioning with preoperative templating. Attention was turned to the femur, which was carefully exposed. The hip was reamed and then broached sequentially. Excellent press-fit was obtained with the broach. The hip was trialed. Measurements were utilized, including the lesser trochanter as well as the center of the femoral head and the tip of the trochanter, and excellent assessment of the offset and leg lengths were confirmed. The real component was impacted into position. Trialing confirmed appropriate leg length and offset with soft tissue balancing as well apparent feel of the leg, both at the knee and the heel. Soft tissues were assessed using the the iliotibial band. Reduction of the posterior capsule and external rotators were also used as a secondary assessment. The hip was copiously irrigated with pulsatile lavage periodically throughout the procedure. The real components were then assembled and reduced. The hip was stable throughout typical maneuvers, including extension, external rotation to 70 degrees, the position of sleep as well as flexion to 90 degrees with internal rotation past 35 degrees. The shake test confirmed stability without impingement. Osteophytes were removed as necessary. The short external rotators and capsule were repaired back to the posterior trochanter through drill holes. The deep fascia was repaired with running number 2 barbed suture, followed by 2-0 Stratafix suture and 3-0 Stratafix suture in the dermis. Steri-Strips were placed on the skin, followed by a sterile occlusive dressing. There were no complications. Meticulous hemostasis was maintained with the AquaMantys device. The patient was brought to the recovery room in stable condition. There were no complications. Physician electrician assistant, Marisol Bonilla PA-C, required for surgery; including patient positioning, draping, tissue retraction, maintaining instrument position, hip dislocation/ relocation, wound closure, and dressing placement. Implants The Accolade II hip stem, 132 degree size 2 , was utilized with excellent press-fit. The 48 mm Trident II acetabular component was impacted with excellent press-fit stability. Standard polyethylene liner the +7.5, 36 mm Biolox ceramic femoral head was utilized. Estimated Blood Loss 500 Drains Carole Pa
[2023-12-01] MEDS: fentaNYL CITRATE INJ (*CRX) 100 MCG/2 ML VIAL 25 MCG IV PUSH ×4 (12:35→13:05)
--- NOTE | 2023-12-01 13:55 | ADMGEN ---
This patient, Swati Flannery, was admitted to 2 Medical Room 241-01. Patient/family oriented to hospital policies and general routines including ID bracelet, bed and alarms, visiting hours, pain management, procedures, bathroom and other care routines, personal items, smoking policy, room service/diet, and visiting hours. Information on how to activate the Rapid Response Team has been discussed. Patient/Family are encouraged to report perceived risks to care and to ask questions if they do not understand what they are told or what they should do.
[2023-12-01] MEDS: SODIUM CHLORIDE 0.9% IV 1,000 ML 125 ML IV CONT (14:13)
[2023-12-01] MEDS: diphenhydrAMINE HCl INJ 50 MG/ML VIAL 25 MG IV PUSH ×2 (14:13→20:17)
[2023-12-01] MEDS: oxyCODONE/ACETAMINOPHEN (*CRX) 5-325 MG TABLET 1 TABLET PO (16:02)
[2023-12-01] MEDS: SENNA/DOCUSATE SODIUM TABLET 2 TAB PO (16:03)
[2023-12-01] MEDS: MELOXICAM 7.5 MG TABLET PO (16:03)
[2023-12-01] MEDS: FAMOTIDINE 20 MG TABLET PO (16:16)
[2023-12-01] MEDS: ACETAMINOPHEN 325 MG TABLET 650 MG PO (18:33)
[2023-12-01] MEDS: ASPIRIN 81 MG ENTERIC TABLET PO (20:16)
[2023-12-01] MEDS: ESCITALOPRAM OXALATE 10 MG TABLET 20 MG PO (20:16)
[2023-12-01] MEDS: oxyCODONE/ACETAMINOPHEN (*CRX) 10-325 MG TABLET 1 TAB PO (20:17)
[2023-12-02] MEDS: ACETAMINOPHEN 325 MG TABLET 650 MG PO ×3 (00:26→11:11)
[2023-12-02] MEDS: ceFAZolin 2 GM/D5W 50 ML 2 GM/50 ML BAG IVPB ×2 (01:15→10:19)
[2023-12-02] MEDS: oxyCODONE/ACETAMINOPHEN (*CRX) 5-325 MG TABLET 1 TABLET PO (01:15)
[2023-12-02 03:29] VITALS: BP 104/53; PULSE 65; RESP 20; TEMP 36.5; O2SAT 97
[2023-12-02 06:13] LABS: Basophils Percent Auto 0.1 % (0.2-1.2); Hematocrit 35.6 % (37.0-47.0); Hemoglobin 11.5 g/dL (12.0-15.0); Immature Granulocyte Absolute 0.11 K/mm3 (0.00-0.031); Immature Granulocyte Percent A 0.8 % (0-0.5); Lymphocytes Absolute Auto 0.72 K/mm3 (0.9-3.2); Lymphocytes Percent Auto 5.1 % (18.3-44.2); Mean Corpuscular HGB Conc 32.3 g/dl (32-36); Mean Corpuscular Hemoglobin 30.9 pg (26-34); Mean Corpuscular Volume 95.7 fl (80-100); Mean Platelet Volume 10.3 fl (7.4-10.4); Monocytes Absolute Auto 1.6 K/mm3 (0.1-0.6); Monocytes Percent Auto 11.4 % (2.6-8.5); Neutrophils Absolute Auto 11.6 K/mm3 (1.3-6.7); Neutrophils Percent Auto 82.6 % (45.5-73.1); Platelet Count Result 196 k/mm3 (150-375); Red Blood Count 3.72 M/mm3 (4.2-5.4); Red Cell Distribution Width 14.9 % (11.5-14.5)
[2023-12-02 06:16] LABS: Anion Gap 10 mmol/L (4-12); Blood Urea Nitrogen 20 mg/dL (7-17); Calcium 8.9 mg/dL (8.4-10.2); Carbon Dioxide 27 mmol/L (22-30); Chloride 100 mmol/L (98-107); Estimated CRCL calculation 60 ml/min; Estimated Glomerular Filt Rate > 60; Glucose 152 mg/dL (65-110); Potassium 4.6 mmol/L (3.4-5.0); Sodium 137 mmol/L (137-145)
[2023-12-02 07:29] VITALS: BP 107/71; PULSE 66; RESP 20; TEMP 36.6; O2SAT 99
--- NOTE | 2023-12-02 07:56 | WPDANESPN ---
Anes - Prog Note Post-Op Date/Time: 12/02/23 07:56 Vital Signs: Last Vital Signs Temp 36.5 C 12/02/23 03:29 Pulse 65 12/02/23 03:29 Resp 20 12/02/23 03:29 BP 104/53 L 12/02/23 03:29 Pulse Ox 97 12/02/23 03:29 O2 Del Method Room Air 12/01/23 20:15 O2 Flow Rate 8 12/01/23 12:35 Pain Score (VAS): 0 I/O: Intake & Output 12/01/23 12/01/23 12/02/23 15:59 23:59 07:59 Intake Total 350 919.2 50 Balance 350 919.2 50 Laboratory Tests 12/02/23 05:23 12/02/23 05:23 12/01/23 12/01/23 12/02/23 08:28 09:28 05:23 WBC 14.0 H RBC 3.72 L Hgb 11.5 L D Hct 35.6 L MCV 95.7 MCH 30.9 MCHC 32.3 RDW 14.9 H Plt Count 196 MPV 10.3 Immature Gran % (Auto) 0.8 H Neut % (Auto) 82.6 H Lymph % (Auto) 5.1 L [place] % (Auto) 11.4 H Eos % (Auto) 0.0 Baso % (Auto) 0.1 L Lymph # (Auto) 0.72 L [place] # (Auto) 1.6 H Eos # (Auto) 0.0 Baso # (Auto) 0.0 Abs Immat Gran (auto) 0.11 H Absolute Neuts (auto) 11.6 H Absolute Nucleated RBC 0.000 Nucleated RBC % 0.0 Sodium 137 137 Potassium 4.9 4.6 Chloride 101 100 Carbon Dioxide 29 27 Anion Gap 7 10 BUN 18 H 20 H Creatinine 0.80 0.90 Estim Creat Clear Calc 66 60 Estimated GFR > 60 > 60 Glucose 98 152 H Calcium 9.1 8.9 Blood Type O Positive Antibody Screen Negative Patient Feedback: Patient satisfied with anesthetic care.
[2023-12-02] MEDS: MELOXICAM 7.5 MG TABLET PO (08:46)
[2023-12-02] MEDS: ASPIRIN 81 MG ENTERIC TABLET PO (08:46)
[2023-12-02] MEDS: ROSUVASTATIN 20 MG TABLET PO (08:46)
[2023-12-02 08:47] VITALS: PULSE 70
[2023-12-02] MEDS: oxyCODONE/ACETAMINOPHEN (*CRX) 10-325 MG TABLET 1 TAB PO (08:47)
[2023-12-02] MEDS: atenoloL 25 MG TABLET PO (08:47)
[2023-12-02] MEDS: SENNA/DOCUSATE SODIUM TABLET 2 TAB PO (08:47)
[2023-12-02] MEDS: FAMOTIDINE 20 MG TABLET PO (08:48)
--- NOTE | 2023-12-02 10:06 | PM.DS ---
DS: Admitting Diagnosis Discharge Date 12/02/23 Admitting Diagnosis Hip arthritis. DS: Discharge Diagnosis Discharge Diagnosis (1) Status post total hip replacement, right: Code(s): Z96.641 - Presence of right artificial hip joint Status: Acute Assessment and Plan: Postop day 1: Total hip arthroplasty. Patient tolerated procedure well. No complications. Pain manageable with pain medication. She does take chronic narcotics. We discussed that she may have a difficulty with controlling pain after surgery. No numbness or tingling. We had a lengthy discussion regarding postoperative wound care, limitations, expectations, and exercises. Patient shows good understanding. Patient has had initial physical therapy and is tolerating it well. DVT prophylaxis: 81 mg baby aspirin b.i.d. for 14 days. Short frequent walks. Pain medication: Percocet. Meloxicam. Patient has followup appointment with Dr. Avelar in 3 weeks DS: Summary Hospital Course Reason for hospitalization: Total hip arthroplasty Hospital Course: Patient tolerated procedure well. Has had initial PT/OT and made good progress. Status at Discharge Functional status at discharge: uses cane/walker Overall status at discharge: patient is progressing back to baseline Time Spent with Patient Time attestation: Total time spent providing and/or coordinating discharge services: Exam Narrative: Overweight 63 y/o female. Resting comfortably in the chair. Wearing compression socks bilaterally. Dressing dry and intact with no drainage. Mild swelling. No ecchymosis. No erythema. No hematoma. Range of motion limited due to pain. Calf nontender. Thigh nontender. Neurologic status intact. No varicosities. Distal pulses palpable. DS: Data Data Completed and Pending Labs on day of discharge: Labs from last 24 hours 12/02/23 05:23 WBC 14.0 H RBC 3.72 L Hgb 11.5 L D Hct 35.6 L MCV 95.7 MCH 30.9 MCHC 32.3 RDW 14.9 H Plt Count 196 MPV 10.3 Immature Gran % (Auto) 0.8 H Neut % (Auto) 82.6 H Lymph % (Auto) 5.1 L [place] % (Auto) 11.4 H Eos % (Auto) 0.0 Baso % (Auto) 0.1 L Lymph # (Auto) 0.72 L [place] # (Auto) 1.6 H Eos # (Auto) 0.0 Baso # (Auto) 0.0 Abs Immat Gran (auto) 0.11 H Absolute Neuts (auto) 11.6 H Absolute Nucleated RBC 0.000 Nucleated RBC % 0.0 Sodium 137 Potassium 4.6 Chloride 100 Carbon Dioxide 27 Anion Gap 10 BUN 20 H Creatinine 0.90 Estim Creat Clear Calc 60 Estimated GFR > 60 Glucose 152 H Calcium 8.9 Discharge Plan Discharge Patient Disposition: Home, Self-Care Discharge Instructions: See green instruction sheets Stand Alone Forms: General Discharge Instructions Follow-up/Referrals: Marisol Bonilla PA [Physician Regional Economist] - Discharge Medications: New meloxicam 15 mg tablet 15 mg PO DAILY Qty: 30 0RF Rx Instructions: Cut in half. Take 1/2 in morning and 1/2 at night. Take with food. Stop if stomach upset. aspirin 81 mg tablet,delayed release (DR/EC) 81 mg PO BID 14 Days Qty: 28 0RF oxycodone-acetaminophen 5-325 mg tablet 1 - 2 tablet PO Q4-6H MDD 8 PRN (Reason: pain) Qty: 30 0RF Continued escitalopram oxalate 20 mg tablet 20 mg PO HS ketoconazole 2 % cream 1 applic TOPICAL DAILY rosuvastatin 20 mg tablet See Rx Instructions .ROUTE .COMPLEX Qty: 90 2RF Dose Instruction: TAKE 1 TABLET BY MOUTH EVERY DAY Rx Instructions: TAKE 1 TABLET BY MOUTH EVERY DAY Incruse Ellipta 62.5 mcg/actuation blister with device See Rx Instructions .ROUTE .COMPLEX Qty: 90 1RF Dose Instruction: INHALE 1 PUFF BY MOUTH EVERY DAY Rx Instructions: INHALE 1 PUFF BY MOUTH EVERY DAY atenolol 25 mg tablet See Rx Instructions .ROUTE .COMPLEX Qty: 90 1RF Dose Instruction: TAKE 1 TABLET BY MOUTH EVERY DAY Rx Instructions: TAKE 1 TABLET BY MOUTH EVERY DAY Held hydrocodone-milad
[2023-12-02] MEDS: UMECLIDINIUM BROMIDE 62.5 MCG ELLIPTA 1 PUFF INHALATION (10:11)
== END 2023-12-02 11:45 | disposition home or self-care (01) ==
LOC: ANHSURGERY 09:34 → ANH2MED 13:49
PROVIDERS: Anesthesiology; Physician Assistant Surgical; PCP Nurse Practitioner Family; Visit Provider Orthopaedic Surgery
PROC: (CPT 27130; principal; 2023-12-01 10:00)
DX: M16.0 Bilateral primary osteoarthritis of hip (principal); M25.751 Osteophyte, right hip; D64.9 Anemia, unspecified; F41.9 Anxiety disorder, unspecified; J44.9 Chronic obstructive pulmonary disease, unspecified; F32.A Depression, unspecified; I47.10 Supraventricular tachycardia, unspecified; F17.290 Nicotine dependence, other tobacco product, uncomplicated; F12.90 Cannabis use, unspecified, uncomplicated; Z79.891 Long term (current) use of opiate analgesic; Z98.890 Other specified postprocedural states; Z85.3 Personal history of malignant neoplasm of breast; Z80.3 Family history of malignant neoplasm of breast
CPT/HCPCS: 27130; 36415; 73502; 73521; 80048; 85025; 86850; 86900; 86901; 97110; 97161; 97165; 97530; 97535; A9270; C1776; J0171; J0690; J1100; J1170; J1200; J1885; J2250; J2270; J2405; J2704; J2795; J3010; J7030; J7120

== ENCOUNTER 2023-12-23 10:01 | Outpatient (CLI) | payer MEDICARE, MEDICAID, SELFPAY ==
--- NOTE | ~2023-12-23 | XR_ITS ---
EXAMINATION: XR hip RT 2V w AP pelvis DATE: 12/23/2023 10:26 INDICATION: Presence of right artificial hip joint. TECHNIQUE: An anteroposterior view of the pelvis and 2 views of right hip were obtained. COMPARISON: Right hip radiographs 12/01/2023 FINDINGS: There is lumbar levoscoliosis and severe spondylosis. There is a total right hip arthroplas ty in anatomic alignment. No periprosthetic lucency to suggest loosening or infection. No fracture. T here is severe left hip osteoarthritis. IMPRESSION: 1. Total right hip arthroplasty in near-anatomic alignment. 2. Severe left hip osteoarthritis. Reviewed, dictated and finalized at location A.
== END 2023-12-23 10:02 | disposition home or self-care (01) ==
PROVIDERS: PCP Nurse Practitioner Family; Visit Provider Physician Assistant Surgical
DX: Z96.641 Presence of right artificial hip joint (principal); M16.12 Unilateral primary osteoarthritis, left hip
CPT/HCPCS: 73502

== ENCOUNTER 2024-01-20 10:11 | Outpatient (CLI) | payer MEDICARE, MEDICAID, SELFPAY ==
--- NOTE | ~2024-01-20 | XR_ITS ---
AP view of the pelvis and AP and lateral views of the right hip Clinical history: Arthroplasty follow-up Findings: No acute fracture or dislocation is seen. Right hip arthroplasty is unchanged. No hardware convocation seen. Stable severe degenerative change of the left hip joint.. Soft tissues are unremark able. Impression: Right hip arthroplasty in place. Severe osteoarthritis of the left hip joint. Reviewed, dictated and finalized at location . Impression: Right hip arthroplasty in place. Severe osteoarthritis of the left hip joint.
== END 2024-01-20 10:12 | disposition home or self-care (01) ==
PROVIDERS: PCP Nurse Practitioner Family; Visit Provider Orthopaedic Surgery
DX: Z96.641 Presence of right artificial hip joint (principal); M16.12 Unilateral primary osteoarthritis, left hip
CPT/HCPCS: 73502

== ENCOUNTER 2024-02-07 11:36 | Outpatient (CLI) | payer MEDICARE, MEDICAID, SELFPAY ==
[2024-02-07 13:05] LABS: Basophils Percent Auto 0.5 % (0.2-1.2); Eosinophils Absolute Auto 0.1 K/mm3 (0-0.3); Eosinophils Percent Auto 1.3 % (0-4.4); Hematocrit 41.3 % (37.0-47.0); Hemoglobin 13.7 g/dL (12.0-15.0); Immature Granulocyte Absolute 0.02 K/mm3 (0.00-0.031); Immature Granulocyte Percent A 0.3 % (0-0.5); Lymphocytes Percent Auto 18.4 % (18.3-44.2); Mean Corpuscular HGB Conc 33.2 g/dl (32-36); Mean Corpuscular Hemoglobin 31.1 pg (26-34); Mean Corpuscular Volume 93.9 fl (80-100); Mean Platelet Volume 9.7 fl (7.4-10.4); Monocytes Absolute Auto 0.8 K/mm3 (0.1-0.6); Monocytes Percent Auto 13.7 % (2.6-8.5); Neutrophils Absolute Auto 3.9 K/mm3 (1.3-6.7); Neutrophils Percent Auto 65.8 % (45.5-73.1); Platelet Count Result 277 k/mm3 (150-375); Red Cell Distribution Width 14.1 % (11.5-14.5)
[2024-02-07 13:13] LABS: Albumin Level 4.8 g/dL (3.5-5.1); Estimated Glomerular Filt Rate > 60; Glucose 108 mg/dL (65-110)
[2024-02-07 13:28] LABS: Hemoglobin A1C 5.6 % (<5.7)
[2024-02-07 13:30] LABS: Urine Cotinine NEGATIVE
[2024-02-07 14:27] LABS: MRSA (PCR) NOT DETECTED (NOT DETECTE)
== END 2024-02-07 11:37 | disposition home or self-care (01) ==
LOC: ANHSURGERY 12:27
PROVIDERS: PCP Nurse Practitioner Family; Visit Provider Orthopaedic Surgery
DX: M16.12 Unilateral primary osteoarthritis, left hip (principal); Z01.818 Encounter for other preprocedural examination
CPT/HCPCS: 80307; 82040; 82565; 82947; 83036; 85025; 86850; 86900; 86901; 87641

== ENCOUNTER 2024-03-07 10:09 | Outpatient (CLI) | payer MEDICARE, MEDICAID, SELFPAY ==
--- NOTE | ~2024-03-07 | XR_ITS ---
XR hip LT 2V w AP pelvis Ordering provider: KEVIN Shea History: . UNILATERAL PRIMARY OA, LEFT HIP, HX SURGERY X 1 MONTH AGO . Comparison: None. FINDINGS: BONES: No acute fracture or dislocation. HIP JOINT SPACES: Bilateral hip arthroplasty. SACROILIAC JOINT SPACES/LUMBAR SPINE: The sacroiliac joint spaces are normal. Mild degenerative jones es of the visualized lower lumbar spine. PUBIC SYMPHYSIS: Normal. SOFT TISSUES: Normal. IMPRESSION: No acute osseous abnormality. Bilateral hip arthroplasty. Reviewed, dictated and finalized at location A. ATION SUPERVISOR
== END 2024-03-07 10:10 | disposition home or self-care (01) ==
PROVIDERS: PCP Nurse Practitioner Family; Visit Provider Physician Assistant Surgical
DX: M16.12 Unilateral primary osteoarthritis, left hip (principal); Z98.890 Other specified postprocedural states; Z96.643 Presence of artificial hip joint, bilateral
CPT/HCPCS: 73502

== ENCOUNTER 2024-03-19 13:36 | Outpatient (CLI) | payer MEDICARE, MEDICAID, SELFPAY ==
--- NOTE | ~2024-03-19 | MM_ITS ---
EXAMINATION: MM screening [facility] BI w umesh HISTORY: Screening TECHNIQUE: Craniocaudal and mediolateral oblique 3-D tomosynthesis images were obtained and synthetic 2-D images were generated. CAD analysis was submitted and interpreted. COMPARISON: Comparison to multiple prior studies sequentially, with oldest reviewed study dated 05/05. BREAST PARENCHYMAL COMPOSITION: Not dense: There are scattered areas of fibroglandular density. FINDINGS: There is no evidence of suspicious mass, calcification, or architectural distortion to sugg est malignancy in either breast. There has been no suspicious interval change. IMPRESSION: 1. No mammographic evidence of malignancy. 2. Recommend routine screening mammography in one year. BI-RADS Category 1: Negative Reviewed, dictated and finalized at location B. TESTER
[2024-03-19 14:40] LABS: Cholesterol 179 mg/dL (0-200); HDL Direct 66 mg/dL (40-60); LDL Cholesterol Calculated 85 mg/dL (<130); Triglycerides 142 mg/dL (0-150)
== END 2024-03-19 13:37 | disposition home or self-care (01) ==
LOC: CHSLAB 13:41
PROVIDERS: PCP Nurse Practitioner Family; Visit Provider Internal Medicine Cardiovascular Disease
DX: Z12.31 Encounter for screening mammogram for malignant neoplasm of breast (principal); E78.5 Hyperlipidemia, unspecified
CPT/HCPCS: 36415; 77063; 77067; 80061

== ENCOUNTER 2024-08-08 14:42 | Outpatient (CLI) | payer MEDICARE, MEDICAID, SELFPAY ==
--- NOTE | ~2024-08-08 | MR_ITS ---
MRI of the left shoulder Technique: Axial proton-density fat-sat images, coronal proton density fat-sat and T2 fat-sat images, and sagittal T1-weighted and T2 fat-sat images were acquired. Clinical History: Pain Findings: There is minimal AC joint degenerative change. Coracoclavicular, coracoacromial, and coraco humeral ligaments appear intact. There is a 9 mm x 9 mm area of high-grade partial-thickness versus full-thickness tearing at the post erior aspect of the supraspinatus tendon. There is background moderate supraspinatus and infraspinatu s tendinosis. Probable focal interstitial tear at the myotendinous junction region of the infraspinat us tendon with associated 1.0 x 0.4 cm cystic fluid collection present (series 5 image 17). Subscapul jory tendon intact with mild to moderate tendinosis. Tendon of long head of the biceps is intact. There is no circumferential degenerative labral tearing and attenuation. There is a paralabral cyst a long the inferior and posterior inferior aspect of the labrum/glenoid measuring up to 1.2 x 1.1 x 0.5 cm in extent. There is diffuse chondral thinning of the glenohumeral joint. Large inferomedial humeral head osteoph yte present. Inferior glenohumeral ligament is grossly intact. There is minimal fluid in the subacrom ial/subdeltoid bursa. No muscle atrophy evident. There is fluid distention of the subscapularis reces s with loose bodies present in the recess, largest measuring 8 mm. Impression: 9 mm x 9 mm high-grade partial-thickness and/or full-thickness tear at the posterior aspect of the lizarraga praspinatus tendon. Suspected interstitial tear at the myotendinous junction region of the infraspinatus tendon with 1.0 x 0.4 cm cystic fluid collection. Background rotator cuff tendinosis. Diffuse degenerative labral tearing with 1.2 x 1.1 x 0.5 cm somewhat U-shaped paralabral cyst along t he inferior and posterior inferior aspect of the labrum/glenoid. Severe glenohumeral joint osteoarthritis, as detailed above associated loose bodies in the subscapula ris recess. Reviewed, dictated and finalized at location M. Impression: 9 mm x 9 mm high-grade partial-thickness and/or full-thickness tear at the post erior aspect of the supraspinatus tendon. Suspected interstitial tear at the myotendinous junction region of the infraspi natus tendon with 1.0 x 0.4 cm cystic fluid collection. Background rotator cuff tendinosis. Diffuse degenerative labral tearing with 1.2 x 1.1 x 0.5 cm somewhat U-shaped p aralabral cyst along the inferior and posterior inferior aspect of the labrum/g lenoid. Severe glenohumeral joint osteoarthritis, as detailed above associated loose arturo dies in the subscapularis recess.
--- OUTSIDE RECORDS SUMMARY | 2024-08-08 15:43 | XMS_ITS | Referral Summary ---
Author Organization [facility] Address [address] [place] [address] Phone Care Team Providers Care Top Spotter Name Role Phone Telma Dahl NP Primary Care Provider [phone] Reuben Hyatt MD Unavailable [phone] Allergies Active Allergy Reactions Criticality Noted Date Comments Latex Itching,Rash Medium 11/09/2017 Penicillins Hives Medium 11/09/2017 Oxycodone-Acetaminophen Itching,Rash Medium 11/09/2017 Medications VENTOLIN HFA 90 mcg/actuation inhaler 8 Active buPROPion XL (WELLBUTRIN XL) 150 mg 24 hr tablet 8 Active HYDROcodone-acetami nophen (NORCO) 7.5-325 mg per tabletIndications:P ain 8 Active propranolol (INDERAL) 40 mg tablet 8 Active rosuvastatin (CRESTOR) 40 mg tablet 8 Active topiramate (TOPAMAX) 100 mg tablet 8 Active INCRUSE ELLIPTA 62.5 mcg/actuation blister with device 09/08/19 1 8 Active beclomethasone (QVAR) 80 mcg/actuation inhaler INL 1 PUFF PO BID 7 Active phentermine (ADIPEX-P) 37.5 mg tablet TK ONE T PO D 5 9 Active rOPINIRole (REQUIP) 1 mg tablet TK 1 T PO QHS 4 9 Active simvastatin (ZOCOR) 20 mg tablet TK 1 T PO QD IN THE BENNY 8 9 Active cilostazoL (PLETAL) 50 mg tablet Take 50 mg by mouth 2 (two) times a day 0 Active metoprolol XL (TOPROL-XL) 25 mg extended release tablet Take 25 mg by mouth daily [address] (PROTONIX) 20 mg EC tablet Take 20 mg by mouth daily 0 Active venlafaxine XR (EFFEXOR-XR) 75 mg 24 hr capsule Take 75 mg by mouth daily 0 Active ondansetron ODT (ZOFRAN-ODT) 4 mg disintegrating tablet Take 4 mg by mouth every 8 (eight) hours as needed 0 Active anastrozole (ARIMIDEX) 1 mg tabletIndications:M alignant neoplasm of central portion of left breast in female, estrogen receptor positive (HCC) Take 1 tablet by mouth once daily 90 tablet 0 Active Active Problems Problem Noted Date Diagnosed Date PVD (peripheral vascular disease) 03/05/2019 Malignant neoplasm of centra l portion of left breast in female, estrogen receptor positive 11/08/2017 Cancer Staging:Clinical stage from 01/22/2014:Stage IIA(cT2, cN0(sn), cM0, G2, ER: Positive, AL: Negative, HER2: Positive) - Signed by Daniel Hernandez MD on 11/09/2017 Polyarthralgia 08/04/2017 Pulmonary hypertension 07/06/2017 GERD (gastroesophageal reflux disease) 6 Chronic obstructive pulmonary disease 11/12/2014 Immunizations Immunization Administration Dates Next Due Tdap 09/29/2017 Social History Tobacco Use Types Packs/Day Years Used Date Smoking Tobacco: Every Day Cigarettes Last attempted to quit: 2018 Smokeless Tobacco: Never Tobacco Cessation:Ready to Q uit: No Alcohol Use Standard Drinks/Week Comments Yes 0 (1 standard drink = 0.6 oz pur e alcohol) Personal Safety Answer Date Recorded Getting School Help Needed Not on file 06/24 Comments Unknown Sex and Gender Information Value Date Recorded Sex Assigned at Not on file Legal Sex Female 11:01 AM CUSTOMER AGENT Gender Identity Not on file Sexual Orientation Not on file Last Filed Vital Signs Vital Sign Reading Time Taken Comments Blood Pressure 120/76 10/16/2019 9:56 AM CDT Pulse 69 10/16/2019 9:56 AM CDT Temperature 36.7 C (98 F) 10/16/2019 9:56 AM CDT Respiratory Rate 16 10/16/2019 9:56 AM CDT Oxygen Saturation 96% 10/16/2019 9:56 AM CDT Inhaled Oxygen Concentration - - Weight 77.8 kg (171 lb 9.6 oz) 10/16/2019 9:56 A M CDT Height 170.2 cm (5' 7 ) 10/16/2019 9:56 AM CDT Body Mass Index 26.88 10/16/2019 9:56 AM CDT Plan of Treatment Not on file Insurance MEDICARE MEDICARE IDPA Care Teams Top Spotter Relationship Specialty [place] [address] [place] [address] PCP - General Family Practice 10/16/19 [place] [address] [place] [address] Medical Oncologist/Migratory Farm Hand Hematology and Oncology 04/25/20
--- OUTSIDE RECORDS SUMMARY | 2024-08-08 15:43 | XMS_ITS | Clinical Summary ---
Author Organization [facility] Address [address] [place] [address] Care Team Providers Care Nuclear Medicine Supervisor Name Role Phone Scarlet Yañez MD Unavailable [phone] Marya Castellanos MD Primary Care Provider [phone] Allergies Active Allergy Reactions Criticality Noted Date Comments Latex Redness Low 11/08/2014 Oxycodone-Acetaminophen Rash High 10/14/2016 Penicillins Hives Low 11/08/2014 Medications albuterol sulfate HFA 108 (90 Base) MCG/ACT inhalerIndications :Panlobular emphysema ([facility]) Inhale 2 puffs into the lungs every 6 (six) hours as needed for Wheezing or Shortness of breath. 64 g 1 1 Active venlafaxine XR 75 MG 24 hr capsuleIndications :Anxiety Take 1 capsule (75 mg total) by mouth daily. 90 capsule 1 2 Active HYDROcodone-acetam inophen 5-325 MG tabletIndications: Chronic Pain Take 1-2 tablets by mouth daily as needed for Pain. Indications: Chronic Pain 30 tablet 2 Active HYDROcodone-acetam inophen 5-325 MG tabletIndications: Chronic Pain Take 1 tablet by mouth daily as needed for Pain. Indications: Chronic Pain 30 tablet 2 Active Incontinence Supply Disposable (DEPEND UNDERWEAR LARGE/XL) MiscIndications:Ur gency incontinence 1 each by Does not apply route daily. 90 each 2 Active HYDROcodone-acetam inophen 5-325 MG tabletIndications: Chronic Pain Take 1 tablet by mouth daily as needed for Pain. Indications: Chronic Pain 30 tablet 2 Active ROSUVASTATIN 20 MG tabletIndications: Mixed hyperlipidemia TAKE 1 TABLET BY MOUTH NIGHTLY AT BEDTIME 30 tablet 2 Active Umeclidinium [place] (INCRUSE ELLIPTA) 62.5 MCG/INH AEROSOL POWDER, BREATH ACTIVATEDIndicatio ns:Panlobular emphysema ([facility]) Inhale 1 puff into the lungs daily. 90 each 2 Active rOPINIRole 1 MG tabletIndications: Restless leg syndrome TAKE 1 TABLET(1 MG) BY MOUTH THREE TIMES DAILY 270 tablet 2 Active atenolol 25 MG tabletIndications: Palpitations,Tremo r Take 1 tablet (25 mg total) by mouth daily. 90 tablet 2 Active HYDROcodone-acetam inophen (NORCO) 5-325 MG tabletIndications: Chronic Pain Take 1 tablet by mouth daily as needed for Pain. Indications: Chronic Pain 30 tablet 2 Active Active Problems Problem Noted Date Diagnosed Date Urgency incontinence 08/25/2021 Pain in both lower legs 08/14/2019 Mixed hyperlipidemia 08/14/2019 H/O rheumatoid arthritis 08/04/2017 Polyarthralgia 08/04/2017 Lung nodule, multiple 07/06/2017 Panlobular emphysema ([facility]) 8 Pulmonary hypertension ([facility]) 018 Tobacco use disorder 07/06/2017 GERD (gastroesophageal reflux disease) 6 Nicotine dependence 07/31/2015 Pulmonary nodule 07/29/2015 Chronic obstructive pulmonary disease ([facility] HS/HCC) 11/12/2014 Mediastinal adenopathy 11/08/2014 PVD (peripheral vascular disease) Palpitations Immunizations Immunization Administration Dates Next Due PFIZER COVID-19 (ORIGINAL FO RMULATION, PURPLE CAP) mRNA, LNP-S, PF, 30 MCG/0.3 ML DOSE 11/10/2020,10/20/2020 Tdap (Generic) 09/29/2017 Family History Medical History Relation Comments Liver Disease Father Breast Cancer Mother Relation Status Comments Father (Age 46) Mother (Age 50) Social History Tobacco Use Types Packs/Day Years Used Date Smoking Tobacco: Every Day Cigarettes 1 52.3 Started: 1972 Smokeless Tobacco: Never Tobacco Cessation:Ready to Q uit: No; Counseling Given: Yes Alcohol Use Standard Drinks/Week Comments Yes 0 (1 standard drink = 0.6 oz pur e alcohol) Occ AUDIT-C Answer Date Recorded Frequency of Alcohol Consumption Monthly or less 02/26/2019 Average Number of Drinks Not on file 019 Frequency of Binge Drinking Not on file 02/09 PHQ-2 Answer Date Recorded PHQ-2 Score - If the patient scores above 3, please move on to questions 3-9 0 08/21/2021 Education Answer Date Recorded What is the highest level of school you have completed or the highest degree you have received? High school graduate 02/26/2019 Comments No Sex and Gender Information Value Date Recorded Sex Assigned at Female 02/26/2019 10:09 AM BULK FOLDER Legal Sex Female 1:46 AM CDT Gender Identity Female 02/26/2019 10:09 AM BULK FOLDER Sexual Orientation Straight 02/26/2019 10 :09 AM BULK FOLDER Occupation Industry Job Start Date Job End Date Not on file Not on file Not on file Not on file Last Filed Vital Signs Vital Sign Reading Time Taken Comments Blood Pressure 118/72 07/15/2021 9:46 AM CDT Pulse 61 07/15/2021 9:46 AM CDT Temperature 36.6 C (97.8 F) 07/15/2021 9:46 AM CDT Respiratory Rate 18 07/15/2021 9:46 AM CDT Oxygen Saturation 96% 07/15/2021 9:46 AM CDT Inhaled Oxygen Concentration - - Weight 85.3 kg (188 lb) 08/21/2021 8:28 AM CDT Height 170.2 cm (5' 7 ) 08/21/2021 8:28 AM CDT Body Mass Index 29.44 08/21/2021 8:28 AM CDT Plan of Treatment Health Maintenance Due Date Last Done Comments Colorectal Cancer Screening Colonoscopy (10 Years) 1958 Hepatitis C 1976 Pneumococcal Vaccine: 50+ Years (1 of 2 - PCV) 1977 Zoster Vaccines (1 of 2) 2008 RSV Immunization or 60+ Years (1 - Risk 60-74 years 1-dose series) 2018 Mammogram Screening 05/05/2020 05/05/2018, 05/04/2017 Dexa Scan (General) 09/16/2023 02/14/2018 COVID-19 Vaccine (3 - 2023-2 5 season) 2023 11/10/2020, 10/20/2020 DTaP, Tdap and Td Vaccines ( 2 - Td or Tdap) 09/30/2027 09/29/2017 Meningococcal B Vaccine Aged Out No l onger eligible based on patient's age to complete this topic Meningococcal Vaccine Aged Out No griselda eliot eligible based on patient's age to complete this topic RSV Immunizations Under 20 Months Aged Out No longer eligible b ased on patient's age to complete this topic Procedures Procedure Name Priority Date/Time Associated Diagnosis Comments MAMMOGRAM GENERIC (SCAN ORDER) Routine 05/05/2018 BONE DENSITY GENERIC (SCAN ORDER) Routine 02/14/2018 from Last 3 Months or Most Recently Relevant to Health Maintenance Results * MAMMOGRAM (05/05/2018) Anatomical Region Laterality Modality Other us Documents Scanned SCANNING Edited Result - Final * BONE DENSITY (02/14/2018) Anatomical Region Laterality Modality Other us Documents Scanned SCANNING Edited Result - Final from Last 3 Months or Most Recently Relevant to Health Maintenance Insurance [employer] Care Teams Nuclear Medicine Supervisor Relationship Specialty Start [place] [address] [address] PCP - General FAMILY PRACTICE 11/23/21 Scarlet Yañez MD [facility]. [facility] [address] [place] [address] [employer] INTERVENTIONAL CARDIOLOGY 02/28/19
--- OUTSIDE RECORDS SUMMARY | 2024-08-08 15:43 | XMS_ITS | Encounter Summary ---
Author Organization [facility] Address [address] [place] [address] Care Team Providers Care Canvas Goods Fabricator Name Role Phone Scarlet Yañez MD Unavailable [phone] Marya Castellanos MD Primary Care Provider [phone] Encounter Details Date Type Department Care Team (Late st Contact Info) Description 11/25/2021 Jada Beauty Message Enc [facility] Family & Internal Medicine [address] [address] [facility] Provider norco refills Social History Tobacco Use Types Packs/Day Years Used Date Smoking Tobacco: Every Day Cigarettes 1 52.3 Started: 1972 Smokeless Tobacco: Never Alcohol Use Standard Drinks/Week Comments Yes 0 [...] Sex Assigned at Female 02/26/2019 10:09 AM REGIONAL REHABILITATION DIRECTOR Legal Sex Female 1:46 AM CDT Gender Identity Female 02/26/2019 10:09 AM REGIONAL REHABILITATION DIRECTOR Sexual Orientation Straight 02/26/2019 10 :09 AM REGIONAL REHABILITATION DIRECTOR Occupation Industry Job Start Date Job End Date Not on file Not on file Not on file Not on file COVID-19 Exposure Response Date Recorded In the last 10 days, have yo u been in contact with someone who was confirmed or suspected to have Coronavirus/COVID-19? No / Unsure 11/23/2021 9:01 AM CDT documented as of this encounter Plan of Treatment Not on file documented as of this encounter Visit Diagnoses Not on filedocumented in this encounter Additional Health Concerns Assessment Noted Time PHQ-9 Depression Total Score: 0 01/24/20 21 9:08 AM CDT documented as of this encounter Care Teams Canvas Goods Fabricator Relationship Specialty Start [place] [address] [place] [address] PCP - General FAMILY PRACTICE 11/23/21 Scarlet Yañez MD [facility] [address] [place] [address] [employer] Sales Consultant INTERVENTIONAL CARDIOLOGY 02/28/19 documented as of this encounter
--- OUTSIDE RECORDS SUMMARY | 2024-08-08 15:43 | XMS_ITS | Clinical Summary ---
Author Organization [facility] Address [address] [place] [address] Phone Care Team Providers Care Supervisor Central Supply Name Role Phone Telma Dahl NP Primary Care Provider [phone] Reuben Hyatt MD Unavailable [phone] Allergies Active Allergy Reactions Criticality Noted [...] 01/22/2014:Stage IIA(cT2, cN0(sn), cM0, G2, ER: Positive, NM: Negative, HER2: Positive) - Signed by Daniel Hernandez MD on 11/09/2017 Polyarthralgia 08/04/2017 Pulmonary hypertension 07/06/2017 GERD (gastroesophageal reflux disease) 6 Chronic obstructive pulmonary disease 11/12/2014 Immunizations Immunization Administration Dates Next Due Tdap 09/29/2017 Surgical History Surgery Date Site/Laterality Comments BREAST BIOPSY BREAST LUMPECTOMY SECTION COLONOSCOPY Medical History Medical History Date Comments Breast cancer (HCC) Family History Medical History Relation Name Comments Breast cancer Mother Relation Name Status Comments Mother (Age 50) 48 when di agnosed Social History Tobacco Use Types Packs/Day Years Used Date Smoking Tobacco: Every Day Cigarettes Last attempted to quit: 2017 Smokeless Tobacco: Never Tobacco Cessation:Ready to Q uit: No Alcohol Use Standard Drinks/Week Comments Yes 0 (1 standard drink = 0.6 oz pur e alcohol) Personal Safety Answer Date Recorded Getting School Help Needed Not on file 06/24 Comments Unknown Sex and Gender Information Value Date Recorded Sex Assigned at Not on file Legal Sex Female 11:01 AM LINEMARKER Gender Identity Not on file Sexual Orientation Not on file Obstetrics History Last Filed Vital Signs Vital Sign Reading [...] of Treatment Not on file [place] [address] [address] [place] [address] MEDICARE [facility] Address: [address] [address] [place] [address] IDPA Care Teams Supervisor Central Supply Relationship Specialty [place] [address] [place] [address] PCP - General Family Practice 10/16/19 [place] [address] [place] [address] Medical Oncologist/Top Installer Hematology and Oncology 04/25/20
--- OUTSIDE RECORDS SUMMARY | 2024-08-08 15:43 | XMS_ITS | Clinical Summary ---
Author Organization [facility] Address [address] [facility] [place] [address] Care Team Providers Care District Customs Director Name Role Phone Srini Ward MD Primary Care Provider [phone] Source Comments [facility],non-owned Affiliates and Associated Physician Practices is amultiple site organization consisting of ambulatory clinics and hospital sitesin [place], [place], [place] and [place]. This disclosure is being madepursuant to the Care Everywhere program and may not contain all information available regarding this patient. Last updated 17.[facility] Allergies Active Allergy Reactions Criticality Noted Date Comments Latex Unknown 04/19/2017 Oxycodone-Acetaminophen Rash Medium 04/19/2017 Penicillins Unknown 07/06/2017 Medications * Be aware that medications may not be up to date on this document. Alwaysverify current medications with the patient. anastrozole (ARIMIDEX) 1 MG tabletIndicatio ns:Polyarthralg ia,H/O rheumatoid arthritis,Myalg ia,Other fatigue TK 1 T PO D 5 8 Active VENTOLIN HFA 108 (90 BASE) MCG/ACT inhalerIndicati ons:Polyarthral tyrese,H/O rheumatoid arthritis,Myalg ia,Other fatigue INL 2 PFS PO Q 4 TO 6 H PRF SOB 0 8 Active QVAR 80 MCG/ACT inhalerIndicati ons:Polyarthral tyrese,H/O rheumatoid arthritis,Myalg ia,Other fatigue INHALE 1 PUFF PO BID 0 8 Active escitalopram (LEXAPRO) 10 MG tabletIndicatio ns:Polyarthralg ia,H/O rheumatoid arthritis,Myalg ia,Other fatigue TK 1 T PO QD 0 8 Active HYDROcodone-milad taminophen (NORCO) 7.5-325 MG tabletIndicatio ns:Polyarthralg ia,H/O rheumatoid arthritis,Myalg ia,Other fatigue TK 1 T PO BID PRN P . AVOID DRIVING OR OPERATING MACHINES 0 8 Active INCRUSE ELLIPTA 62.5 MCG/INH inhalerIndicati ons:Polyarthral tyrese,H/O rheumatoid arthritis,Myalg ia,Other fatigue INL 1 PUFF PO AT THE SAME TIME QD 0 8 Active venlafaxine (EFFEXOR) 75 MG tabletIndicatio ns:Polyarthralg ia,H/O rheumatoid arthritis,Myalg ia,Other fatigue TK 1 T PO BID WF 1 8 Active VITAMIN D, CHOLECALCIFEROL , POIndications:P olyarthralgia,H /O rheumatoid arthritis,Myalg ia,Other fatigue Active BABY ASPIRIN POIndications:P olyarthralgia,H /O rheumatoid arthritis,Myalg ia,Other fatigue Active Calcium Citrate-Vitamin D (CALCIUM + D PO)Indications: Polyarthralgia, H/O rheumatoid arthritis,Myalg ia,Other fatigue Active meloxicam (MOBIC) 15 MG tablet Take 1 tablet by mouth once daily 30 tablet 2 8 Active gabapentin (Neurontin) 300 MG capsule Take 1 (one) capsule by mouth 3 Active diclofenac sodium EC (Voltaren) 50 MG tablet TAKE 1 TABLET BY MOUTH THREE TIMES A DAY NEEDED FOR PAIN *TAKE WITH FOOD* 3 Active rOPINIRole (Requip) 1 MG tablet Take 1 (one) tablet by mouth 2 times daily 3 Active rosuvastatin (Crestor) 20 MG tablet Take 1 (one) tablet by mouth once daily 3 Active ketoconazole (Nizoral) 2 % cream Apply to feet between toes and around nails BIW. 30 days supply. 60 g 5 4 Active terbinafine (LamISIL) 250 MG tablet TAKE 1 TABLET BY MOUTH EVERY DAY X4 WEEKS 28 tablet 4 Active Active Problems Problem Noted Date Diagnosed Date Polyarthralgia 08/04/2017 H/O rheumatoid arthritis 08/04/2017 Family History Medical History Relation Name Comments Diabetes - Type 1 Mother Relation Name Status Comments Mother Social History Tobacco Use Types Packs/Day Years Used Date Smoking Tobacco: Former Cigarettes 1.5 45 0 07/21/1972 - 07/21/2017 Smokeless Tobacco: Never Tobacco Cessation:Counseling Given: Not Answered Alcohol Use Standard Drinks/Week Comments Yes 0 (1 standard drink = 0.6 oz pur e alcohol) on occasion Comments Unknown Sex and Gender Information Value Date Recorded Sex Assigned at Not on file Legal Sex Female 5:28 PM LIME HIDE INSPECTOR Gender Identity Not on file Sexual Orientation Not on file 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 Not on file Not on file Last Filed Vital Signs Vital Sign Reading Time Taken Comments Blood Pressure 100/72 08/04/2017 10:45 AM CDT Pulse 70 08/04/2017 10:45 AM CDT Temperature 36.2 C (97.2 F) 08/04/2017 10:45 AM CDT Respiratory Rate - - Oxygen Saturation - - Inhaled Oxygen Concentration - - Weight 100.2 kg (221 lb) 08/04/2017 10:45 AM CDT Height 170.2 cm (5' 7 ) 08/04/2017 10:45 AM CDT Body Mass Index 34.61 08/04/2017 10:45 AM CDT Plan of Treatment Health Maintenance Due Date Last Done Comments BONE DENSITY TESTING 1960 COLOGUARD (AGES 45-75) - COL ON CA SCREENING 1958 COLON MONITORING 1958 COLONOSCOPY - COLON CA SCREENING 1958 CT COLONOGRAPHY - COLON CA SCREENING 1958 Colorectal Cancer Screening 1958 FIT - COLON CA SCREENING 1958 FLEX SIG - COLON CA SCREENING 1958 MEDICARE AWV 12 MONTHS 1958 PAP SMEAR 1958 HIV SCREENING 1973 DTAP/TDAP/TD VACCINES (1 - Tdap) 1977 LUNG CANCER SCREENING 2008 PNEUMOCOCCAL VACCINE 50+ (1 of 1 - PCV) 2008 ZOSTER VACCINE (1 of 2) 2008 MAMMOGRAM 05/05/2020 05/05/2018 COVID-19 VACCINE (3 - 2023-2 5 season) 2023 11/10/2020, 10/20/2020 DEPRESSION SCREENING 04/11/2024 INFLUENZA VACCINE (Season Ended) 2024 Respiratory Syncytial Virus (RSV) Vaccine Pt: or over 60 yrs (1 - 1-dose 75+ series) 2033 HEPATITIS C SCREENING Completed 10/25/2017 HEPATITIS B VACCINE Aged Out No longe r eligible based on patient's age to complete this topic HIB VACCINE Aged Out No longer eligi ble based on patient's age to complete this topic HPV VACCINE Aged Out No longer eligi ble based on patient's age to complete this topic MENINGOCOCCAL (Group B) VACCINE SHARED DECISION-MAKING Aged Out No longer eligible based on patient's age to complete this topic MENINGOCOCCAL GROUPS A/C/Y/W VACCINE Aged Out No longer eligible b ased on patient's age to complete this topic Procedures Procedure Name Priority Date/Time Associated Diagnosis Comments HEPATITIS C AB W/RFLX TO HCV RNA QN PCR 10/25/2017 10:32 AM CDT from Last 3 Months or Most Recently Relevant to Health Maintenance Results * HEPATITIS C AB W/RFLX TO HCV RNA QN PCR (10/25/2017 10:32 AM CDT) Hepatitis C Antibody NON-REACTI VE NON-REACT [facility] Signal to Cut-Off 0.01 <1.00 [facility] Comment: Test Performed at: [facility] [address] [address] CARINA MACIAS DO,MPH 10/25/2017 10:3 2 AM CDT 10/25/2017 10:34 AM CDT Sugey Carolina MD LAB - CHEMISTRY ORDERA BLES Final Result [facility] [id number] [place] [address] from Last 3 Months or Most Recently Relevant to Health Maintenance Insurance MEDICAID - OUT OF STATE MEDICARE MEDICARE Care Teams District Customs Director Relationship Specialty Start Date End Date Srini Ward MD [address] [place] [address] [facility] - General 07/27/16
--- OUTSIDE RECORDS SUMMARY | 2024-08-08 15:43 | XMS_ITS | Encounter Summary ---
Author Organization [facility] Address Count includes the [facility] [place] [address] Care Team Providers Care Manager Java Name Role Phone Telma Dahl NP Primary Care Provider Unav arlinable Scarlet Yañez MD Unavailable [phone] Marya Castellanos MD Primary Care Provider [phone] Marya Castellanos MD Primary Care Provider [phone] Encounter Details Date Type Department Care Team (Late st Contact Info) Description 05/14/2019 Abstract [facility] at [address] [id number] Kevin Self MA Social History Tobacco Use Types Packs/Day Years [...] 02/09 PHQ-2 Answer Date Recorded PHQ-2 Score 2 03/12/2019 Education Answer Date Recorded What is the highest level of school you have completed or the highest degree you have received? High school graduate 02/26/2019 Comments No Sex and Gender Information Value Date Recorded Sex Assigned at Female 02/26/2019 10:09 AM CHEMICAL DEPENDENCY PROFESSIONAL Legal Sex Female 1:46 AM CDT Gender Identity Female 02/26/2019 10:09 AM CHEMICAL DEPENDENCY PROFESSIONAL Sexual Orientation Straight 02/26/2019 10 :09 AM CHEMICAL DEPENDENCY PROFESSIONAL Occupation Industry Job Start Date Job End Date Not on file Not on file Not on file Not on file documented as of this encounter Plan of Treatment Not on file documented as of this encounter Procedures Procedure Name Priority Date/Time Associated Diagnosis Comments LIPID PANEL Routine 05/12/2019 documented in this encounter Results * LIPID PANEL (05/12/2019) CHOLESTEROL 206 <200 HDL 65 >50 TRIGLYCERIDES 119 <150 NON HDL CHOLESTEROL 141 <130 LDL (CALCULATED) 118 <100 05/12/2019 [facility] Final Result documented in this encounter Visit Diagnoses Not on filedocumented in this encounter Additional Health Concerns Infection Onset Date Last Indicated Resolved Time COVID-19 Rule Out 01/28/2021 01/28/2021 02/04/2021 12:34 AM CDT documented as of this encounter Care Teams Manager Java Relationship Specialty Start Date End Date Telma Dahl NP PCP - General NURSE PRACTITIONER 02/28/19 01/22/21 [place] [address] [place] [address] PCP - General FAMILY PRACTICE 01/23/21 11/22/21 [place] [address] [place] [address] PCP - General FAMILY PRACTICE 11/23/21 Scarlet Yañez MD [facility] [address] [place] [address] [place] [facility] INTERVENTIONAL CARDIOLOGY 02/28/19 documented as of this encounter
--- OUTSIDE RECORDS SUMMARY | 2024-08-08 15:43 | XMS_ITS | Encounter Summary ---
Author Organization [facility] Address [address] [place] [id number] Care Team Providers Care Radio Operator Name Role Phone Scarlet Yañez MD Unavailable [phone] Marya Castellanos MD Primary Care Provider [phone] Encounter Details Date Type Department Care Team (Late st Contact Info) Description 11/23/[address] [facility] Family & Internal Medicine [address] [id number] [place], [facility] Provider pain medication. Social History Tobacco Use Types Packs/Day Years [...] Sex Assigned at Female 02/26/2019 10:09 AM CAR RUNNER Legal Sex Female 1:46 AM CDT Gender Identity Female 02/26/2019 10:09 AM CAR RUNNER Sexual Orientation Straight 02/26/2019 10 :09 AM CAR RUNNER Occupation Industry Job Start Date Job End [...] documented as of this encounter Care Teams Radio Operator Relationship Specialty Start [place] [address] [place], [place] [id number] PCP - General FAMILY PRACTICE 11/23/21 Scarlet Yañez MD [facility] [address] [place] [address] Jose Elias Nurses Superintendent INTERVENTIONAL CARDIOLOGY 02/28/19 documented as of this encounter
--- OUTSIDE RECORDS SUMMARY | 2024-08-08 15:43 | XMS_ITS | CONTINUITY OF CARE DOCUMENT ---
Author Name [address] Address Unknown Organization [facility] Address [address] [place] [address] Phone [phone] Care Team Providers Care Assistant Food Service Director Name Role Phone Gee Pink MD Unavailable CHANDAN TREJO Unavailable CHANDAN TREJO Unavailable PROBLEMS Condition Status Date Provider Notes Vitamin D deficiency active Gee Calderon COPD active Gee palacios md Tobacco dependence, continuous active Fidel Pink MD Overweight active Gee Pink MD Tachy vibha syndrome;nl tsh active Gee chou MD Hyperlipidemia; with high crp active Gee Pink MD Screening active Gee Pink MD Bradycardia completed - Gee Pink MD Breast cancer active Gee Pink MD ? Sleep apnea completed - Gee Pink MD B12 deficiency active Gee Pink MD PVD; active Gee Pink MD Neuropathy active Gee Pink MD Bradycardia;due to rx completed - Gee Pink MD Hypertriglyceridemia active Gee Calderon Exposure to SARS-associated coronavirus;neg igg active Gee Pink MD ENCOUNTERS Date Type Provider Location Encounter Diag nosis - In-person encounter Office Visit Gee Pink MD [facility] Bradycardia;due to rxExposure to SARS-associated coronavirus;neg igg - In-person encounter Office Visit Gee Pink MD [facility] Hypertriglyceridemia - In-person encounter Office Visit Gee Pink MD [facility] Tobacco dependence, continuousOverweightPVD;Neuropa thy - In-person encounter Office Visit Gee Pink MD [facility] COPDTobacco dependence, continuousTachy vibha syndrome;nl tshScreeningBradycardia? Sleep slezgM23 deficiency - In-person encounter Office Visit Gee Pink MD [facility] COPDTobacco dependence, continuousOverweightTachy vibha syndrome;nl tshHyperlipidemia; with high crpScreeningBreast cancer VITAL SIGNS Date Observation Value Provider Body Mass Index (Ratio) 27.41 kg/m2 Alex Pink MD blood pressure, diastolic 74 mm[Hg] Kurt Mast blood pressure, systolic 105 mm[Hg] Julissa Mast blood pressure, cuff size regular Cy wilner Mast pulse rate 86 /min Shaunna buenrostro oxygen saturation, oximetry 98 % Shaunna Mast respiratory rate E&M 16 /min Shaunna Mast weight E&M 175 [lb_av] Shaunna buenrostro height E&M 67 [in_i] Shaunna buenrostro Body Mass Index (Ratio) 26.31 kg/m2 Alex Pink MD blood pressure, cuff size regular Carlos Manuel Sanchez respiratory rate E&M 17 /min Caitlyn Sanchez pulse rate 64 /min Caitlynantoine Sanchez oxygen saturation, oximetry 98 % Caitlynantoine Sanchez blood pressure, diastolic 80 mm[Hg] Kr isty Laura blood pressure, systolic 118 mm[Hg] Kri sty [place] weight E&M 168 [lb_av] Caitlyn Holt height E&M 67 [in_i] Caitlyn Holt Body Mass Index (Ratio) 28.66 kg/m2 Alex Pink MD pulse rate 57 /min Caitlyn Holtby blood pressure, diastolic 70 mm[Hg] Carlos Manuel Sanchez blood pressure, systolic 100 mm[Hg] Carlos Manueli terrence Holt respiratory rate E&M 18 /min Ciatlyn weight E&M 183 [lb_av] Caitlyn blood pressure, cuff size regular Carlos Manuel Holt height E&M 67 [in_i] Caitlyn Body Mass Index (Ratio) 35.55 kg/m2 Alex Pink MD blood pressure, cuff size large Cy wilner Pro blood pressure, diastolic 70 mm[Hg] Cy ntdeborah Pro blood pressure, systolic 126 mm[Hg] Julissa kade Pro oxygen saturation, oximetry 95 % Shaunnahuma Mast respiratory rate E&M 16 /min Shaunnahuma Mast pulse rate 59 /min Shaunna Marquezbel l weight E&M 227 [lb_av] Shaunna Campbel l height E&M 67 [in_i] Shaunna Campbel l blood pressure, diastolic 74 mm[Hg] Ke rri Genie blood pressure, systolic 110 mm[Hg] Ker ri Genie Body Mass Index (Ratio) 33.64 kg/m2 Alex Pink MD blood pressure, resting Yes Fiorella Lucero blood pressure, diastolic 86 mm[Hg] Radha Lucero blood pressure, systolic 139 mm[Hg] Glenna Lucero oxygen saturation, oximetry 96 % Micaela Lucero respiratory rate E&M 18 /min Eneida Lucero pulse rate 58 /min Micaela donahue weight E&M 214.8 [lb_av] Micaela owen height E&M 67 [in_i] Micaela donahue ALLERGIES Allergy Name Onset Date Reaction Criticality Status LATEX High Criticality active PERCOCET High Criticality active PENICILLIN High Criticality active RESULTS Date Observation Value Provider Reference Range Interpretation Location B-12, serum 396 pg/mL [facility] 232-1245 c-reactive protein, quantitative, serum 7.30 mg/L [facility] 0.00-3.00 High prothrombin time (patient) 10.3 s [facility] 9.1-12.0 international normalized ratio (INR) 1.0 [facility] 0.9-1.2 lipoprotein, beta, serum, point, quantitative, calculated 83 mg/dL [facility] 0-99 HDL cholesterol, serum 52 mg/dL [facility] >39 triglyceride, serum, random 328 mg/dL [facility] 0-149 High cholesterol, serum 188 mg/dL [facility] 151-282 5351/11 /06 calcium, serum 9.9 mg/dL [facility] 8.7-10.3 carbon dioxide, venous blood 26 mmol/L [facility] 20-29 chloride, serum 104 mmol/L [facility] 96-106 potassium, serum 4.8 mmol/L [facility] 3.5-5.2 sodium, serum 142 mmol/L [facility] 796-076 8594/11 /06 urea nitrogen/creatinine ratio, serum 15 [facility] 12-28 eGFR if 79 mL/min/{1.73_ m2} [facility] >59 eGFR if not 68 mL/min/{1.73_ m2} [facility] >59 creatinine, serum 0.91 mg/dL [facility] 0.57-1.00 urea nitrogen, blood 14 mg/dL [facility] 8-27 blood glucose, random 133 mg/dL [facility] 65-99 High basophil count, absolute 0.0 x10E3/uL [facility] 0.0-0.2 Eosinophil Absolute Count 0.2 X10E3/UL [facility] 0.0-0.4 monocyte count, blood, automated 0.7 X10E3/UL [facility] 0.1-0.9 lymphocyte count, blood, automated 1.3 X10E3/UL [facility] 0.7-3.1 Absolute Neutrophils 5.0 X10E3/UL [facility] 1.4-7.0 basophils as percent of blood leukocytes 0 % [facility] Not Estab. eosinophils as percent of blood leukocytes 2 % [facility] Not Estab. monocytes as percent of blood leukocytes 10 % [facility] Not Estab. lymphocytes as percent of blood leukocytes 18 % [facility] Not Estab. neutrophils as percent of blood leukocytes 70 % [facility] Not Estab. platelet count 249 X10E3/UL [facility] 231-144 0077/11 /06 red blood cell distribution width 13.4 % [facility] 11.7-15.4 mean corpuscular hemoglobin concentration, RBC 33.8 G/DL [facility] 31.5-35.7 mean corpuscular hemoglobin, RBC 31.8 pg [facility] 26.6-33.0 mean corpuscular volume, RBC 94 fL [facility] 79-97 hematocrit, blood 41.7 % [facility] 34.0-46.6 hemoglobin, blood 14.1 g/dL [facility] 11.1-15.9 erythrocyte (RBC) count 4.43 X10E6/UL [facility] 3.77-5.28 leukocyte count, blood 7.2 X10E3/UL [facility] 3.4-10.8 prothrombin time (patient) 9.9 s [facility] 9.0-11.5 Normal international normalized ratio (INR) 1.0 [facility] Normal basophils as percent of blood leukocytes 0.9 % [facility] Normal eosinophils as percent of blood leukocytes 2.4 % [facility] Normal monocyte count, blood 11.3 % [facility] Normal lymphocyte count, blood 21.5 % [facility] Normal neutrophils as percent of blood leukocytes 63.9 % [facility] Normal basophils, absolute, manual 61 cells/mcL [facility] 0-200 Normal eosinophils, absolute, manual 163 cells/mcL [facility] 15-500 Normal monocytes, absolute, manual 768 cells/mcL [facility] 200-950 Normal lymphocytes, absolute 1462 CELLS/UL [facility] 850-3900 Normal Absolute Neutrophil count 4345 cells/mcL [facility] 4554-6189 Normal mean platelet volume 11.1 fL [facility] 7.5-12.5 Normal platelet count 204 THOUSAND/UL [facility] 140-400 Normal red blood cell distribution width 13.1 % [facility] 11.0-15.0 Normal mean corpuscular hemoglobin concentration, RBC 33.7 G/DL [facility] 32.0-36.0 Normal mean corpuscular hemoglobin, RBC 33.0 pg [facility] 27.0-33.0 Normal mean corpuscular volume, RBC 97.8 fL [facility] 80.0-100.0 Normal hematocrit, blood 44.5 % [facility] 35.0-45.0 Normal hemoglobin electrophoresis, blood 15.0 [facility] 11.7-15.5 Normal erythrocyte (RBC) count 4.55 MILLION/UL [facility] 3.80-5.10 Normal leukocyte (white blood cells) count, blood 6.8 THOUSAND/UL [facility] 3.8-10.8 Normal calcium, serum 9.3 mg/dL [facility] 8.6-10.4 Normal carbon dioxide, venous blood 30 mmol/L [facility] 20-32 Normal chloride, serum 107 mmol/L [facility] 98-110 Normal potassium, serum 4.9 mmol/L [facility] 3.5-5.3 Normal sodium, serum 144 mmol/L [facility] 135-146 Normal urea nitrogen/creatinine ratio, serum NOT APPLICABLE (calc) [facility] 6-22 Estimated Glomerular Filtration Rate (calc) 77 mL/min/{1.73_ m2} [facility] > OR = 60 Normal creatinine, serum 0.93 mg/dL [facility] 0.50-0.99 Normal urea nitrogen, blood 19 mg/dL [facility] 7-25 Normal blood glucose, random 90 mg/dL [facility] 65-99 Normal cholesterol, non-HDL, total 91 MG/DL (CALC) [facility] <130 Normal cholesterol/HDL ratio, serum, percent 2.6 (calc) [facility] <5.0 Normal LDL cholesterol, serum 73 MG/DL (CALC) [facility] Normal triglyceride, serum, fasting 95 mg/dL [facility] <150 Normal HDL cholesterol, serum 58 mg/dL [facility] >50 Normal cholesterol, serum 149 mg/dL [facility] <200 Normal rapid plasma reagin antibody, serum NON-REACTIVE [facility] NON-REACTIVE Normal B-12, serum 344 pg/mL [facility] 200-1100 Normal cholesterol, non-HDL, total 109 MG/DL (CALC) [facility] <130 Normal cholesterol/HDL ratio, serum, percent 3.0 (calc) [facility] <5.0 Normal LDL cholesterol, serum 81 MG/DL (CALC) [facility] Normal triglyceride, serum, fasting 179 mg/dL [facility] <150 High HDL cholesterol, serum 54 mg/dL [facility] >50 Normal cholesterol, serum 163 mg/dL [facility] <200 Normal hemoglobin A1C, blood, as % of total hemoglobin 5.5 % OF TOTAL HGB [facility] <5.7 Normal B-12, serum 324 pg/mL [facility] 200-1100 Normal ferritin, serum 141 ng/mL [facility] 10-232 Normal NT-pro BNP 121 [facility] C-reactive protein, serum 2.16 mg/dL [facility] <0.80 High basophils as percent of blood leukocytes 0.7 % [facility] Normal eosinophils as percent of blood leukocytes 3.1 % [facility] Normal monocyte count, blood 8.1 % [facility] Normal lymphocyte count, blood 15.3 % [facility] Normal neutrophils as percent of blood leukocytes 72.8 % [facility] Normal basophils, absolute, manual 53 cells/mcL [facility] 0-200 Normal eosinophils, absolute, manual 233 cells/mcL [facility] 15-500 Normal monocytes, absolute, manual 608 cells/mcL [facility] 200-950 Normal lymphocytes, absolute 1148 CELLS/UL [facility] 850-3900 Normal Absolute Neutrophil count 5460 cells/mcL [facility] 3828-7948 Normal mean platelet volume 10.1 fL [facility] 7.5-12.5 Normal platelet count 269 THOUSAND/UL [facility] 140-400 Normal red blood cell distribution width 14.1 % [facility] 11.0-15.0 Normal mean corpuscular hemoglobin concentration, RBC 34.2 G/DL [facility] 32.0-36.0 Normal mean corpuscular hemoglobin, RBC 31.9 pg [facility] 27.0-33.0 Normal mean corpuscular volume, RBC 93.5 fL [facility] 80.0-100.0 Normal hematocrit, blood 47.1 % [facility] 35.0-45.0 High hemoglobin electrophoresis, blood 16.1 [facility] 11.7-15.5 High erythrocyte (RBC) count 5.04 MILLION/UL [facility] 3.80-5.10 Normal leukocyte (white blood cells) count, blood 7.5 THOUSAND/UL [facility] 3.8-10.8 Normal alanine aminotransferase (SGPT), serum 20 1/L [facility] 6-29 Normal aspartate aminotransferase (SGOT), serum 21 1/L [facility] 10-35 Normal alkaline phosphatase, serum 96 1/L [facility] 33-130 Normal bilirubin, serum, total 0.5 mg/dL [facility] 0.2-1.2 Normal albumin/globulin ratio, serum 1.4 (calc) [facility] 1.0-2.5 Normal globulins, serum, total 3.1 G/DL (CALC) [facility] 1.9-3.7 Normal albumin, serum 4.4 g/dL [facility] 3.6-5.1 Normal protein, total, serum 7.5 g/dL [facility] 6.1-8.1 Normal calcium, serum 9.6 mg/dL [facility] 8.6-10.4 Normal carbon dioxide, venous blood 25 mmol/L [facility] 20-31 Normal chloride, serum 105 mmol/L [facility] 98-110 Normal potassium, serum 4.3 mmol/L [facility] 3.5-5.3 Normal sodium, serum 140 mmol/L [facility] 135-146 Normal urea nitrogen/creatinine ratio, serum NOT APPLICABLE (calc) [facility] 6-22 Estimated Glomerular Filtration Rate (calc) 111 mL/min/{1.73_ m2} [facility] > OR = 60 Normal creatinine, serum 0.70 mg/dL [facility] 0.50-1.05 Normal urea nitrogen, blood 11 mg/dL [facility] 7-25 Normal blood glucose, random 105 mg/dL [facility] 65-99 High iron saturation percent, serum 31 % (CALC) [facility] 11-50 Normal iron binding capacity, total 399 MCG/DL (CALC) [facility] 250-450 Normal iron, serum 125 ug/dL [facility] 45-160 Normal thyroid stimulating hormone, serum 3.31 u[IU]/mL [facility] 0.40-4.50 Normal free thyroxine index 2.5 [facility] 1.4-3.8 Normal thyroxine, serum, total 9.1 ug/dL [facility] 4.5-12.0 Normal triiodothyronine resin uptake 28 % [facility] 22-35 Normal cholesterol, non-HDL, total 197 MG/DL (CALC) [facility] High cholesterol/HDL ratio, serum, percent 4.1 (calc) [facility] < OR = 5.0 Normal LDL cholesterol, serum 150 MG/DL (CALC) [facility] <130 High triglyceride, serum, fasting 234 mg/dL [facility] <150 High HDL cholesterol, serum 64 mg/dL [facility] > OR = 46 Normal cholesterol, serum 261 mg/dL [facility] 125-200 High HISTORY OF MEDICATION USE Medication Status Instructions Dates Provider Indications Com ments VITAMIN B-12 1000 MCG ORAL TABLET active One tablet daily Gee Pink MD ASPIRIN 81 81 MG ORAL TABLET DELAYED RELEASE active One Tab By Mouth Daily Gee Pink MD VITAMIN D3 1.25 MG (88545 UT) ORAL CAPSULE active one capsule by mouth weekly Gee Pink MD ZETIA 10 MG ORAL TABLET active ONE TAB. DAILY Gee Pink MD CRESTOR 10 MG ORAL TABLET active ONE TAB. DAILY Gee Pink MD TOPROL XL 25 MG ORAL TABLET EXTENDED RELEASE 24 HOUR active take 1 tab daily Shaunna Mast CILOSTAZOL 50 MG ORAL TABLET active take 1 tab twice a day Shaunna Mast CRESTOR 40 MG ORAL TABLET completed ONE TAB. DAILY - Shaunna Mast VITAMIN D (ERGOCALCIFEROL ) 57766 UNIT ORAL CAPSULE completed one capsule by mouth weekly - Shaunna Mast VITAMIN B-12 1000 MCG ORAL TABLET completed One tablet daily - Shaunna Mast TOPAMAX 100 MG ORAL TABLET completed one tab by mouth daily - Shaunna Mast ADIPEX-P 37.5 MG ORAL TABLET completed one tab by mouth daily - Shaunna Mast SIMVASTATIN 20 MG ORAL TABLET completed TAKE ONE TABLET BY MOUTH ONCE DAILY - Gee Pink MD ROPINIROLE HCL .5 MG TABS active TAKE ONE TABLET BY MOUTH ONCE DAILY Caitlyn Sanchez #30, 30 days supply, Filled 10/19/2017 VENLAFAXINE HCL ER 75 MG ORAL CAPSULE EXTENDED RELEASE 24 HOUR active TAKE ONE TABLET BY MOUTH ONCE DAILY Caitlyn Sanchez #30, 30 days supply, Filled 10/19/2017 TOPAMAX 100 MG ORAL TABLET completed ONE A DAY - Caitlyn Sanchez ADIPEX-P 37.5 MG ORAL CAPSULE completed one tab a day - Caitlyn Sanchez CRESTOR 40 MG ORAL TABLET completed ONE TAB. DAILY - Caitlyn Sanchez VITAMIN B-12 1000 MCG ORAL TABLET completed One tablet daily - Caitlyn Sanchez ESCITALOPRAM OXALATE 10 MG ORAL TABLET completed TK 1 T PO QD - Caitlyn Sanchez #90, 90 days supply, Prescribed by ELENA CHAVES, Filled 08/19/2017 LIPITOR 40 MG ORAL TABLET completed ONE TAB. DAILY - Gee Pink MD let pt know chol is high VITAMIN D3 5000 UNIT ORAL CAPSULE completed ONE TAB BY MOUTH DAILY - Caitlyn Sanchez ANASTROZOLE 1 MG ORAL TABLET active daily Gee Pink MD ASPIRIN ADULT LOW DOSE 81 MG ORAL TABLET DELAYED RELEASE completed One Tab By Mouth Daily - Shaunna Mast INCRUSE ELLIPTA 62.5 MCG/INH INHALATION AEROSOL POWDER BREATH ACTIVATED active once daily Micaela Lucero NORCO 7.5-325 MG ORAL TABLET completed twice daily - Shaunna Mast ATROVENT HFA 17 MCG/ACT INHALATION AEROSOL SOLUTION completed 2 puffs 4 times daily - Shaunna Mast VENTOLIN HFA 108 (90 BASE) MCG/ACT INHALATION AEROSOL SOLUTION completed once daily - Shaunna Mast ZOLOFT 100 MG ORAL TABLET completed twice daily - Shaunna Mast PROPRANOLOL HCL 40 MG ORAL TABLET completed twice daily - Shaunna Mast SOCIAL HISTORY Date Observation Value Provider social history E&M S moking History: P atient currently smokes every day. P atient has been counseled to quit. Gee Pink MD social history reviewed E&M revi ewed - no changes required Gee Pink MD smoking/tobacco cess ation, patient education and counseling yes Shaunna Mast number of years as a smoker 45 a Shaunna Mast smoking history, tot al pack/day 1 Shaunna Mast cigarette use yes Shaunna toro smoking status Current every day smoker Viji Mast social history reviewed E&M revi ewed - no changes required Gee Pink MD social history E&M S moking History: P atient currently smokes every day. P atient has been counseled to quit. Gee Pink MD social history reviewed E&M revi ewed - no changes required Gee Pink MD smoking/tobacco cess ation, patient education and counseling yes Shaunna Mast number of years as a smoker 45 a Shaunna Mast smoking history, tot al pack/day 1 Shaunna Mast cigarette use yes Shaunna toro smoking status Current every day smoker C sandee Mast smoking status Current every day smoker Lamonte loomis Genie smoking/tobacco cess ation, patient education and counseling yes Gee Pink MD social history E&M S moking History: Keiry basilio currently smokes every day. Gee Pink MD social history reviewed E&M revi ewed - no changes required Gee Pink MD number of years as a smoker 45 a Micaela Lucero smoking history, tot al pack/day 1 Micaela Lucero cigarette use yes Micaelasanaz owen smoking status Current every day smoker M Irineo Lucero FUNCTIONAL STATUS Date Observation Value Provider periodic limb movement index absent (0) Zacarias Mcginnis MD FAMILY HISTORY Family Member Condition Mother Family History of Di abetes: INSURANCE PROVIDERS Payer name Policy type / Coverage type [place] red green party ID [place] MED[employer] Medicare [id number] [facility] Medicaid 1 [id number] ADVANCE DIRECTIVES Name Date DISCUSSED - NO DECISION MADE TREATMENT PLAN Date Name Performer Cardiology follow up : T he following medications were removed from the medication list: Crestor 40 Mg Oral Tablet (Rosuvastatin calcium) ..... One tab. daily Her updated medication list for this problem includes: Zetia 10 Mg Oral Tablet (Ezetimibe) ..... One tab. daily Crestor 10 Mg Oral Tablet (Rosuvastatin calcium) ..... One tab. daily C HOL: 149 (02/15/2019) LDL: 73 MG/DL (CALC) (02/15/2019) HDL: 58 (02/15/2019) T (02/15/2019) Gee Pink MD Cardiology follow up Gee bartholomew MD Cardiology follow up : T he patient is between 55-77 years old and has smoked at least 30 pack years. The patient is either a current smoker or has quit within the past 15 years. T he patient is recommended to have low dose CT scan for lung cancer screening. Has been counseled regarding the importance of tobacco cessation and abstinence. Shared decision making during this office visit included discussion of the benefits and harms of screening, possible future recommendations of follow-up diagnostic testing, and total amount of radiation exposure. The patient was recommended to have annual low dose CT scan for lung cancer screening and is willing to undergo diagnosis and treatment. Gee Pink MD Cardiology follow up : n eg sleep study., neg echo n eg treadmil, no pe ct withj high dd n ml a1c and iron n ml bnp Gee Pink MD Cardiology follow up : L ;OW B12 AND NML RPR Gee Pink MD Cardiology follow up Gee bartholomew MD Cardiology follow up : V TAMERA BAD ABO Gee Pink MD Cardiology follow up : T he following medications were removed from the medication list: Crestor 40 Mg Oral Tablet (Rosuvastatin calcium) ..... One tab. daily Her updated medication list for this problem includes: Zetia 10 Mg Oral Tablet (Ezetimibe) ..... One tab. daily Crestor 10 Mg Oral Tablet (Rosuvastatin calcium) ..... One tab. daily C HOL: 149 (02/15/2019) LDL: 73 MG/DL (CALC) (02/15/2019) HDL: 58 (02/15/2019) T (02/15/2019) Gee Pink MD Cardiology follow up Gee bartholomew MD Cardiology follow up Gee bartholomew MD Cardiology: T he patient is between 55-77 years old and has smoked at least 30 pack years. The patient is either a current smoker or has quit within the past 15 years. T he patient is recommended to have low dose CT scan for lung cancer screening. Has been counseled regarding the importance of tobacco cessation and abstinence. Shared decision making during this office visit included discussion of the benefits and harms of screening, possible future recommendations of follow-up diagnostic testing, and total amount of radiation exposure. The patient was recommended to have annual low dose CT scan for lung cancer screening and is willing to undergo diagnosis and treatment. Gee Pink MD Cardiology Gee Pink MD Cardiology: n eg sleep study., neg echo and tele n eg treadmil, no pe ct withj high dd n ml a1c and iron n ml bnp and tsh Gee Pink MD Cardiology:58 Gee Pink MD Cardiology Gee Serota Cardiology:L;OW B12 AND NML RPR Gee Pink MD Cardiology Gee Serota Cardiology:NO RX SINC 14, N OSMIN SOAN Gee Pink MD Cardiology:VERY BAD ABO Gee chou MD Cardiology Gee Serothuma HAYS Cardiology Gee Serothuma HAYS Cardiology Gee Serothuma HAYS Cardiology Gee Serota Cardiology Gee Serota Cardiology Gee Serota Cardiology Gee Serothuma HAYS Cardiology Gee Serota Cardiology:did well with qyamai Gee Pink MD Cardiology: n eg sleep study., neg echo and tele n eg treadmil, no pe ct withj high dd n ml a1c and iron n ml bnp and tsh Gee Pink MD Cardiology: T he patient is between 55-77 years old and has smoked at least 30 pack years. The patient is either a current smoker or has quit within the past 15 years. T he patient is recommended to have low dose CT scan for lung cancer screening. Has been counseled regarding the importance of tobacco cessation and abstinence. Shared decision making during this office visit included discussion of the benefits and harms of screening, possible future recommendations of follow-up diagnostic testing, and total amount of radiation exposure. The patient was recommended to have annual low dose CT scan for lung cancer screening and is willing to undergo diagnosis and treatment. Gee Pink MD Cardiology Gee Serothuma HAYS Cardiology: T he patient is between 55-77 years old and has smoked at least 30 pack years. The patient is either a current smoker or has quit within the past 15 years. T he patient is recommended to have low dose CT scan for lung cancer screening. Has been counseled regarding the importance of tobacco cessation and abstinence. Shared decision making during this office visit included discussion of the benefits and harms of screening, possible future recommendations of follow-up diagnostic testing, and total amount of radiation exposure. The patient was recommended to have annual low dose CT scan for lung cancer screening and is willing to undergo diagnosis and treatment. Gee Pink MD Cardiology Follow up Gee bartholomew MD Cardiology Follow up Gee bartholomew MD Cardiology Follow up Gee bartholomew MD Cardiology Follow up :will send to surgery and try dett pills Gee Pink MD Cardiology Follow up :has not bee on anytgn C HOL: 261 (11/13/2016) LDL: 150 MG/DL (CALC) (11/13/2016) HDL: 64 (11/13/2016) T (11/13/2016) Gee Pink MD Cardiology Follow up :The patient is between 55-77 years old and has smoked at least 30 pack years. The patient is either a current smoker or has quit within the past 15 years. T he patient is recommended to have low dose CT scan for lung cancer screening. Has been counseled regarding the importance of tobacco cessation and abstinence. Shared decision making during this office visit included discussion of the benefits and harms of screening, possible future recommendations of follow-up diagnostic testing, and total amount of radiation exposure. The patient was recommended to have annual low dose CT scan for lung cancer screening and is willing to undergo diagnosis and treatment. Gee Pink MD Cardiology Follow up Gee bartholomew MD Cardiology Follow up :neg sleep study., neg echo and tele n eg treadmil, no pe ct n ml a1c and iron n ml bnp and tsh Gee Pink MD Cardiology Follow up :ok on inde ral; Gee Pink MD Cardiology Follow up Gee bartholomew MD Cardiology:manyh sx will poole Alex Pink MD Cardiology:sob, will ro oter cau ses of sob Gee Pink MD Cardiology:stress test 3 years a go, not aware of restuls Gee Pink MD Cardiology:beta has workde for 4 0 years Gee Pink MD Cardiology:last chemo september 22 Raza christiano Pink MD Cardiology:due to proparonalol H vladislav Pink MD Date Name Carotid Duplex Bilat eral Arterial - SENSILASE Vitamin D, 25-Hydrox y PROTHROMBIN TIME WIT H INR LIPID PANEL CBC (INCLUDES DIFF/P LT) BASIC METABOLIC PANE L W/EGFR DLCO - 04285 FRC - 37205 FVC - [address] AIF Diagnostic - [facility] V C-REACTIVE PROTEIN VITAMIN B12 Mobile Cardiac Tele COVID19 High Affinit y Antibodies (LC) LIPID PANEL CT, Coronary Calcium Score PROTHROMBIN TIME WIT H INR LIPID PANEL CBC (INCLUDES DIFF/P LT) BASIC METABOLIC PANE L W/EGFR LIPID PANEL CT, Coronary Calcium Score PROTHROMBIN TIME WIT H INR CBC (INCLUDES DIFF/P LT) BASIC METABOLIC PANE L W/EGFR Arterial - SENSILASE Arterial Duplex Bi-L ower EX RPR (MONITOR) W/REFL TITER Vitamin D, 25-Hydrox y VITAMIN B12 Holter Monitor 24 Hr LIPID PANEL Low Dose Lung CT CT, Coronary Calcium Score Vitamin D, 25-Hydrox y Low Dose Lung CT Sleep Study Home VITAMIN D, 25-HYDROX Y, LC/MS/MS HEMOGLOBIN A1c CBC (INCLUDES DIFF/P LT) COMPREHENSIVE METABO LIC PANEL, W/EGFR VITAMIN B12 IRON AND TOTAL IRON BINDING CAPACITY FERRITIN STR - Routine PROBNP, N TERMINAL CT, Coronary Calcium Score C-REACTIVE PROTEIN DLCO - 10014 FRC - 92678 FVC - 53744 THYROID PANEL WITH T SH, 3RD GENERATION LIPID PANEL Complete Echo Mobile Cardiac Tele HISTORY OF PROCEDURES Procedure Date Procedure Name Provider Procedure Notes S tatus Counseling LDCT Gee Pink MD day of aif com pleted EKG Gee Pink MD complete d Counseling LDCT Gee Pink MD com pleted EKG Gee Pink MD complete d Counseling LDCT Gee Pink MD com pleted Stress EKG Zacarias whitfield MD completed FVC / MVV with bronchodilator - 00641 Gee Pink MD completed BLOOD COUNT HEMOGLOBIN Gee Pink MD completed FRC - 65959 Gee Pink MD complet ed SpO2 - 52647 Gee Pink MD comple jay DLCO - 95333 Gee Pink MD comple jay Event Monitor Gee Pink MD compl eted EKG Gee Pink MD complete d SNOMED-CT: [id number] Current Medications Documented Gee Pink MD completed
== END 2024-08-08 14:43 | disposition home or self-care (01) ==
LOC: ANHIMG 14:44
PROVIDERS: PCP Nurse Practitioner Family; Visit Provider Orthopaedic Surgery
DX: S46.012A Strain of muscle(s) and tendon(s) of the rotator cuff of left shoulder, initial encounter (principal); X58.XXXA Exposure to other specified factors, initial encounter; M19.012 Primary osteoarthritis, left shoulder
CPT/HCPCS: 73221

== ENCOUNTER 2024-08-10 12:13 | Outpatient (CLI) | payer MEDICARE, MEDICAID, SELFPAY ==
--- NOTE | ~2024-08-10 | XR_ITS ---
Left Shoulder Technique: AP and scapular Y views were obtained. Clinical History: Arthritis Findings: No fracture or dislocation is seen. Osseous alignment is anatomic. Large inferomedial humer al head osteophyte present. AC joint intact. Soft tissues are unremarkable. Impression: Moderate to advanced glenohumeral joint degenerative change. Reviewed, dictated and finalized at [facility]. Impression: Moderate to advanced glenohumeral joint degenerative change.
--- OUTSIDE RECORDS SUMMARY | 2024-08-11 13:06 | XMS_ITS | Encounter Summary ---
Author Organization [facility] Address [address] [place] [address] Care Team Providers Care Furniture Delivery Driver Name Role Phone Scarlet Yañez MD Unavailable [phone] Marya Castellanos MD Primary Care Provider [phone] Encounter Details Date Type Department Care Team (Late st Contact Info) Description 11/23/2021 Nulu Message Enc [facility] Family & Internal Medicine [address] [address] [place], [facility] Provider pain medication. Social History Tobacco Use [...] Sex Assigned at Female 02/26/2019 10:09 AM STAND IN Legal Sex Female 1:46 AM CDT Gender Identity Female 02/26/2019 10:09 AM STAND IN Sexual Orientation Straight 02/26/2019 10 :09 AM STAND IN Occupation Industry Job Start Date Job End [...] documented as of this encounter Care Teams Furniture Delivery Driver Relationship Specialty Start [place] [address] [place], [place] [id number] PCP - General FAMILY PRACTICE 11/23/21 Scarlet Yañez MD [facility] [address] [place] [address] Jose Elias Scaffold Builder INTERVENTIONAL CARDIOLOGY 02/28/19 documented as of this encounter
--- OUTSIDE RECORDS SUMMARY | 2024-08-11 13:06 | XMS_ITS | Encounter Summary ---
Author Organization [facility] Address [facility] [place] [address] Care Team Providers Care Appeals Examiner Name Role Phone Telma Dahl NP Primary Care Provider Unav arlinable Scarlet Yañez MD Unavailable [phone] Marya Castellanos MD Primary Care Provider [phone] Marya Castellanos MD Primary Care Provider [phone] Encounter Details Date Type Department Care Team (Late st Contact Info) Description 05/14/2019 Abstract [facility] at [address] [address] Kevin Self MA Social History Tobacco Use [...] Sex Assigned at Female 02/26/2019 10:09 AM BACK SEWER Legal Sex Female 1:46 AM CDT Gender Identity Female 02/26/2019 10:09 AM BACK SEWER Sexual Orientation Straight 02/26/2019 10 :09 AM BACK SEWER Occupation Industry Job Start Date Job End [...] documented as of this encounter Care Teams Appeals Examiner Relationship Specialty Start Date End Date Telma Dahl NP PCP - General NURSE PRACTITIONER 02/28/19 01/22/21 [place] [address] [place] [address] PCP - General FAMILY PRACTICE 01/23/21 11/22/21 [place] [address] [place] [address] PCP - General FAMILY PRACTICE 11/23/21 Scarlet Yañez MD [facility] [address] [place] [address] Maribel Director Nicu INTERVENTIONAL CARDIOLOGY 02/28/19 documented as of this encounter
--- OUTSIDE RECORDS SUMMARY | 2024-08-11 13:06 | XMS_ITS | CONTINUITY OF CARE DOCUMENT ---
Author Name [address] Address Unknown Organization [facility] Address [address] [facility] [address] [place] [address] Phone [phone] Care Team Providers Care English Division Chair Name Role Phone Gee Pink MD Unavailable [phone] CHANDAN TREJO Unavailable CHANDAN TREJO Unavailable PROBLEMS [...] In-person encounter Office Visit Gee Pink MD [place] [facility] Bradycardia;due to rxExposure to SARS-associated coronavirus;neg igg - In-person encounter Office Visit Gee Pink MD [place] [facility] Hypertriglyceridemia - In-person encounter Office Visit Gee Pink MD [place] [facility] Tobacco dependence, continuousOverweightPVD;Neuropa thy - In-person encounter Office Visit Gee Pink MD [place] [facility] COPDTobacco dependence, continuousTachy vibha syndrome;nl tshScreeningBradycardia? Sleep lovdxF61 deficiency - In-person encounter Office Visit Gee Pink MD [place] [facility] COPDTobacco dependence, continuousOverweightTachy vibha syndrome;nl tshHyperlipidemia; [...] blood pressure, systolic 118 mm[Hg] Kri sty [place] weight E&M 168 [lb_av] Caitlyn Holt height E&M 67 [in_i] Caitlyn Holt Body Mass Index (Ratio) 28.66 kg/m2 Alex Pink MD pulse rate 57 /min Caitlyn Holtby blood pressure, diastolic 70 mm[Hg] Carlos Manuel Sanchez blood pressure, systolic 100 mm[Hg] Carlos Manueli terrence Holt respiratory rate E&M 18 /min Caitlyn weight E&M 183 [lb_av] Caitlyn blood pressure, [...] 0-149 High cholesterol, serum 188 mg/dL [facility] 440-630 5230/11 /06 calcium, serum 9.9 mg/dL [facility] 8.7-10.3 carbon dioxide, venous blood 26 mmol/L [facility] 20-29 chloride, serum 104 mmol/L [facility] 96-106 potassium, serum 4.8 mmol/L [facility] 3.5-5.2 sodium, serum 142 mmol/L [facility] 795-246 8114/11 /06 urea nitrogen/creatinine ratio, serum 15 [employer] [...] Not Estab. platelet count 249 X10E3/UL [facility] 490-011 4564/11 /06 red blood cell distribution width 13.4 [...] Normal Absolute Neutrophil count 4345 cells/mcL [facility] 5271-9066 Normal mean platelet volume 11.1 fL [facility] [...] Normal Absolute Neutrophil count 5460 cells/mcL [facility] 5235-1905 Normal mean platelet volume 10.1 fL [employer] [...] Gee Pink MD VITAMIN D3 1.25 MG (28022 UT) ORAL CAPSULE active one capsule by [...] - Shaunna Mast VITAMIN D (ERGOCALCIFEROL ) 19432 UNIT ORAL CAPSULE completed one capsule by [...] Payer name Policy type / Coverage type [place] red green party ID [place] Medicare [id number] [facility] Medicaid 1 [id number] ADVANCE DIRECTIVES Name Date DISCUSSED - NO [...] and tsh Gee Pink MD Cardiology:58 Gee Pnik MD Cardiology Gee Serota Cardiology:L;OW B12 AND [...] BASIC METABOLIC PANE L W/EGFR DLCO - 46054 FRC - 61969 FVC - [address] AIF Diagnostic - [...] Coronary Calcium Score C-REACTIVE PROTEIN DLCO - 64794 FRC - 15096 FVC - 98839 THYROID PANEL WITH T SH, 3RD GENERATION [...] completed FVC / MVV with bronchodilator - 50367 Gee Pink MD completed BLOOD COUNT HEMOGLOBIN Gee Pink MD completed FRC - 87976 Gee Pink MD complet ed SpO2 - 04116 Gee Pink MD comple jay DLCO - 72459 Gee Pink MD comple jay Event Monitor Gee Pink MD compl eted EKG Gee Pink MD complete d SNOMED-CT: [id number] Current Medications Documented Gee Pink MD completed
--- OUTSIDE RECORDS SUMMARY | 2024-08-11 13:06 | XMS_ITS | Clinical Summary ---
Author Organization [facility] Address [address] [place] [address] Phone Care Team Providers Care Tombstone Setter Name Role Phone Telma Dahl NP Primary Care Provider [phone] Reuben Hyatt MD Unavailable [phone] Allergies Active Allergy Reactions Criticality Noted [...] 01/22/2014:Stage IIA(cT2, cN0(sn), cM0, G2, ER: Positive, ND: Negative, HER2: Positive) - Signed by Daniel [...] on file Legal Sex Female 11:01 AM COMMERCIAL LINES ACCOUNT MANAGER Gender Identity Not on file Sexual Orientation [...] of Treatment Not on file Insurance MEDICARE * Guarantor: Swati Flannery Account Type Relation to Patient Date of Phone Billing Address Personal/Family Self [address] [place] [address] [address] [place] [address] MEDICARE IDPA Care Teams Tombstone Setter Relationship Specialty [place] [address] [place] [address] PCP - General Family Practice 10/16/19 [place] [address] [place] [address] Medical Oncologist/Operational Assistant Hematology and Oncology 04/25/20
--- OUTSIDE RECORDS SUMMARY | 2024-08-11 13:06 | XMS_ITS | Clinical Summary ---
Author Organization [facility] Address [address] [place] [address] Care Team Providers Care Lockmaker Name Role Phone Scarlet Yañez MD Unavailable [phone] Marya Castellanos MD Primary Care Provider [phone] Allergies Active Allergy Reactions Criticality Noted Date Comments Latex Redness Low 11/08/2014 Oxycodone-Acetaminophen Rash High 10/14/2016 Penicillins Hives Low 11/08/2014 Medications albuterol sulfate HFA 108 (90 Base) MCG/ACT inhalerIndications :Panlobular emphysema ([facility]CC [facility]) Inhale 2 puffs into the lungs every [...] AT BEDTIME 30 tablet 2 Active Umeclidinium [place] (INCRUSE ELLIPTA) 62.5 MCG/INH AEROSOL POWDER, BREATH ACTIVATEDIndicatio ns:Panlobular emphysema ([facility]) Inhale 1 puff into the lungs daily. [...] 08/04/2017 Lung nodule, multiple 07/06/2017 Panlobular emphysema ([facility]) 8 Pulmonary hypertension ([facility]) 018 Tobacco use disorder 07/06/2017 GERD (gastroesophageal reflux disease) 6 Nicotine dependence 07/31/2015 Pulmonary nodule 07/29/2015 Chronic obstructive pulmonary disease ([facility] HS/HCC) 11/12/2014 Mediastinal adenopathy 11/08/2014 PVD [...] Sex Assigned at Female 02/26/2019 10:09 AM SCREENING SPECIALIST Legal Sex Female 1:46 AM CDT Gender Identity Female 02/26/2019 10:09 AM SCREENING SPECIALIST Sexual Orientation Straight 02/26/2019 10 :09 AM SCREENING SPECIALIST Occupation Industry Job Start Date Job End [...] to Health Maintenance Insurance A[employer] Care Teams Lockmaker Relationship Specialty [place] [address] [place] [address] PCP - General FAMILY PRACTICE 11/23/21 Scarlet Yañez MD [facility]. [facility] [address] [place] [address] Higgins Leader Writer INTERVENTIONAL CARDIOLOGY 02/28/19
--- OUTSIDE RECORDS SUMMARY | 2024-08-11 13:06 | XMS_ITS | Referral Summary ---
Author Organization [facility] Address [address] [place] [address] Phone Care Team Providers Care Optometric Technologist Name Role Phone Telma Dahl NP Primary Care Provider [phone] Reuben Hyatt MD Unavailable [phone] Allergies Active Allergy Reactions Criticality Noted [...] 01/22/2014:Stage IIA(cT2, cN0(sn), cM0, G2, ER: Positive, MA: Negative, HER2: Positive) - Signed by Daniel [...] on file Legal Sex Female 11:01 AM MANAGER COMMUNITY RELATIONS Gender Identity Not on file Sexual Orientation [...] file Insurance MEDICARE MEDICARE IDPA Care Teams Optometric Technologist Relationship Specialty [place] [address] [place] [address] PCP - General Family Practice 10/16/19 [place] [address] [place] [address] Medical Oncologist/Concrete Mixing Plant Laborer Hematology and Oncology 04/25/20
--- OUTSIDE RECORDS SUMMARY | 2024-08-11 13:06 | XMS_ITS | Encounter Summary ---
Author Organization [facility] Address [address] [place] [address] Care Team Providers Care Complaint Adjuster Name Role Phone Scarlet Yañez MD Unavailable [phone] Marya Castellanos MD Primary Care Provider [phone] Encounter Details Date Type Department Care Team (Late st Contact Info) Description 11/25/2021 [employer] Message Enc [facility] Family & Internal Medicine [address] [address] [facility] Provider norco refills Social History Tobacco Use [...] Sex Assigned at Female 02/26/2019 10:09 AM FRAMING MILL OPERATOR Legal Sex Female 1:46 AM CDT Gender Identity Female 02/26/2019 10:09 AM FRAMING MILL OPERATOR Sexual Orientation Straight 02/26/2019 10 :09 AM FRAMING MILL OPERATOR Occupation Industry Job Start Date Job End [...] documented as of this encounter Care Teams Complaint Adjuster Relationship Specialty Start [place] [address] [place] [address] PCP - General FAMILY PRACTICE 11/23/21 Scarlet Yañez MD [facility] [address] [place] [address] Jose Elias Logger INTERVENTIONAL CARDIOLOGY 02/28/19 documented as of this encounter
--- OUTSIDE RECORDS SUMMARY | 2024-08-11 13:06 | XMS_ITS | Clinical Summary ---
Author Organization [facility] Address [address] [facility] [place] [address] Care Team Providers Care Oncology Nurse Navigator Name Role Phone Srini Ward MD Primary Care Provider [phone] Source Comments [facility],non-owned Affiliates and Associated Physician Practices is amultiple site organization consisting of ambulatory clinics and hospital sitesin [place], [place], [place] and [place]. This disclosure is being madepursuant to the Care Everywhere program and may not contain all information available regarding this patient. Last updated 17.[facility] Allergies Active Allergy Reactions Criticality Noted Date [...] on file Legal Sex Female 5:28 PM REFINERY OPERATOR POLYMERIZATION PLANT Gender Identity Not on file Sexual Orientation [...] 0.01 <1.00 [facility] Comment: Test Performed at: [facility] [address] [address] CARINA MACIAS DO,MPH 10/25/2017 10:3 2 AM CDT 10/25/2017 10:34 AM CDT Sugey Carolina MD LAB - CHEMISTRY ORDERA BLES Final Result [facility] [address] [place] [address] from Last 3 Months or Most Recently Relevant to Health Maintenance Insurance MEDICAID - OUT OF STATE MEDICARE MEDICARE Care Teams Oncology Nurse Navigator Relationship Specialty Start Date End Date Srini Ward MD [address] [place] [address] [facility] - General 07/27/16
== END 2024-08-10 12:14 | disposition home or self-care (01) ==
LOC: ANHIMG 12:18
PROVIDERS: PCP Nurse Practitioner Family; Visit Provider Orthopaedic Surgery
DX: M19.012 Primary osteoarthritis, left shoulder (principal)
CPT/HCPCS: 73030

== ENCOUNTER 2024-08-29 13:09 | Outpatient (CLI) | payer MEDICARE, MEDICAID, SELFPAY ==
--- NOTE | ~2024-08-29 | CT_ITS ---
Noncontrast CT scan of the left shoulder CLINICAL HISTORY: Other specific arthropathy TECHNIQUE: Axial noncontrast imaging of the left shoulder was performed, with sagittal and coronal re formatted images. Dose reduction technique was used on this scan by utilizing automated exposure cont rol and iterative reconstruction technique. The dose-length product (DLP) was 211.26 mGy-cm. Findings: No acute fracture or dislocation seen. AC joint is intact, without significant degenerative change. There is advanced degenerative change of the glenohumeral joint, with large inferomedial hum eral head osteophyte, and probable joint space narrowing inferiorly. No significant joint effusion ev ident. No evidence for erosive arthropathy. Visualized musculature about the shoulder is grossly unremarkable on noncontrast CT scan. No soft tis arvind mass or fluid collection evident. Visualized left lung demonstrate mild emphysematous or cystic c hange. IMPRESSION: Advanced degenerative change of the glenohumeral joint, as detailed above. Reviewed, dictated and finalized at location .
--- OUTSIDE RECORDS SUMMARY | 2024-08-29 13:36 | XMS_ITS | Referral Summary ---
Author Organization [facility] Address [address] [place] [address] Phone Care Team Providers Care Machine Coil Assembler Name Role Phone Telma Dahl NP Primary Care Provider [phone] Reuben Hyatt MD Unavailable [phone] Allergies Active Allergy Reactions Criticality Noted [...] 01/22/2014:Stage IIA(cT2, cN0(sn), cM0, G2, ER: Positive, UT: Negative, HER2: Positive) - Signed by Daniel [...] on file Legal Sex Female 11:01 AM KENO WRITER Gender Identity Not on file Sexual Orientation [...] file Insurance MEDICARE MEDICARE IDPA Care Teams Machine Coil Assembler Relationship Specialty [place] [address] [place] [address] PCP - General Family Practice 10/16/19 [place] [address] [place] [address] Medical Oncologist/Residential Direct Support Professional Hematology and Oncology 04/25/20
--- OUTSIDE RECORDS SUMMARY | 2024-08-29 13:36 | XMS_ITS | CONTINUITY OF CARE DOCUMENT ---
Author Name [address] Address Unknown Organization [facility] Address [address] [facility] [address] [place] [address] Phone [phone] Care Team Providers Care Cigarette Making Examiner Name Role Phone Gee Pink MD Unavailable CHANDAN TREJO Unavailable [phone] CHANDAN TREJO Unavailable [phone] PROBLEMS Condition Status Date Provider Notes Vitamin [...] In-person encounter Office Visit Gee Pink MD [place] [facility] Bradycardia;due to rxExposure to SARS-associated coronavirus;neg igg - In-person encounter Office Visit Gee Pink MD [place] [facility] Hypertriglyceridemia - In-person encounter Office Visit Gee Pink MD [place] [facility] Tobacco dependence, continuousOverweightPVD;Neuropa thy - In-person encounter Office Visit Gee Pink MD [place] [facility] COPDTobacco dependence, continuousTachy vibha syndrome;nl tshScreeningBradycardia? Sleep bfbvhA18 deficiency - In-person encounter Office Visit Gee Pink MD [place] [facility] COPDTobacco dependence, continuousOverweightTachy vibha syndrome;nl tshHyperlipidemia; with high crpScreeningBreast cancer VITAL SIGNS Date Observation Value Provider Body Mass Index (Ratio) 27.41 kg/m2 Alex Pink MD blood pressure, diastolic 74 mm[Hg] Kurt Mast blood pressure, systolic 105 mm[Hg] Julissa Mast blood pressure, cuff size regular Cy wilner Mast pulse rate 86 /min Shaunna buernostro oxygen saturation, oximetry 98 % Shaunna Mast [...] blood pressure, diastolic 80 mm[Hg] Kr isty [place] blood pressure, systolic 118 mm[Hg] Kri sty [place] weight E&M 168 [lb_av] Caitlyn Holt height [...] 0-149 High cholesterol, serum 188 mg/dL [facility] 950-751 1740/11 /06 calcium, serum 9.9 mg/dL [facility] 8.7-10.3 carbon dioxide, venous blood 26 mmol/L [facility] 20-29 chloride, serum 104 mmol/L [facility] 96-106 potassium, serum 4.8 mmol/L [facility] 3.5-5.2 sodium, serum 142 mmol/L [facility] 454-822 1076/11 /06 urea nitrogen/creatinine ratio, serum 15 [facility] [...] Not Estab. platelet count 249 X10E3/UL [facility] 785-684 2834/11 /06 red blood cell distribution width 13.4 [...] Normal Absolute Neutrophil count 4345 cells/mcL [facility] 8734-4379 Normal mean platelet volume 11.1 fL [facility] [...] Normal Absolute Neutrophil count 5460 cells/mcL [facility] 8768-3487 Normal mean platelet volume 10.1 fL [facility] [...] Gee Pink MD VITAMIN D3 1.25 MG (11918 UT) ORAL CAPSULE active one capsule by mouth weekly Gee iPnk MD ZETIA 10 MG ORAL TABLET active [...] - Shaunna Mast VITAMIN D (ERGOCALCIFEROL ) 79220 UNIT ORAL CAPSULE completed one capsule by [...] Payer name Policy type / Coverage type [place] red constitution party ID [place] MED[place] Medicare [id number] [facility] Medicaid 1 [id number] ADVANCE DIRECTIVES Name Date DISCUSSED - NO [...] BASIC METABOLIC PANE L W/EGFR DLCO - 15281 FRC - 37784 FVC - [address] AIF Diagnostic - [...] Coronary Calcium Score C-REACTIVE PROTEIN DLCO - 55144 FRC - 69970 FVC - 46152 THYROID PANEL WITH T SH, 3RD GENERATION [...] completed FVC / MVV with bronchodilator - 90539 Gee Pink MD completed BLOOD COUNT HEMOGLOBIN Gee Pink MD completed FRC - 54113 Gee Pink MD complet ed SpO2 - 78542 Gee Pink MD comple jay DLCO - 02989 Gee Pink MD comple jay Event Monitor Gee Pink MD compl eted EKG Gee Pink MD complete d SNOMED-CT: [id number] Current Medications Documented Gee Pink MD completed
--- OUTSIDE RECORDS SUMMARY | 2024-08-29 13:36 | XMS_ITS | Clinical Summary ---
Author Organization [facility] Address [address] [place] [address] Care Team Providers Care Hearing Aid Repairer Name Role Phone Srini Ward MD Primary Care Provider [phone] Source Comments [facility],non-owned Affiliates and Associated Physician Practices is amultiple site organization consisting of ambulatory clinics and hospital sitesin [place], [place], [place] and [place]. This disclosure is being madepursuant to the Care Everywhere program and may not contain all information available regarding this patient. Last updated 17.[facility] Allergies Active Allergy Reactions Criticality Noted Date [...] on file Legal Sex Female 5:28 PM REMOTE RECRUITER Gender Identity Not on file Sexual Orientation [...] 0.01 <1.00 [facility] Comment: Test Performed at: [facility] [address] [address] CARINA MACIAS DO,MPH 10/25/2017 10:3 2 AM CDT 10/25/2017 10:34 AM CDT Sugey Carolina MD LAB - CHEMISTRY ORDERA BLES Final Result [facility] [address] [place] [address] from Last 3 Months or Most Recently Relevant to Health Maintenance Insurance MEDICAID - OUT OF STATE MEDICARE MEDICARE Care Teams Hearing Aid Repairer Relationship Specialty Start Date End Date Srini Ward MD [address] [place] [address] [facility] - General 07/27/16
--- OUTSIDE RECORDS SUMMARY | 2024-08-29 13:36 | XMS_ITS | Clinical Summary ---
Author Organization [facility] Address [address] [place] [address] Phone Care Team Providers Care Brake [address] Freight Name Role Phone Telma Dahl NP Primary Care Provider [phone] Reuben Hyatt MD Unavailable [phone] Allergies Active Allergy Reactions Criticality Noted [...] 01/22/2014:Stage IIA(cT2, cN0(sn), cM0, G2, ER: Positive, NE: Negative, HER2: Positive) - Signed by Daniel [...] on file Legal Sex Female 11:01 AM TIME BROKER Gender Identity Not on file Sexual Orientation [...] of Treatment Not on file Insurance MEDICARE [address] [place] [address] MEDICARE IDPA Care Teams [address] Freight Relationship Specialty [place] [address] [place] [address] PCP - General Family Practice 10/16/19 [place] [address] [place] [address] Medical Oncologist/Rope Machine Setter Hematology and Oncology 04/25/20
[2024-08-29 14:22] LABS: Hematocrit 44.8 % (37.0-47.0); Hemoglobin 14.8 g/dL (12.0-15.0)
[2024-08-29 14:37] LABS: Albumin Level 4.6 g/dL (3.5-5.1); Estimated Glomerular Filt Rate > 60; Glucose 87 mg/dL (65-110)
[2024-08-29 15:54] LABS: Iron 95 ug/dL (37-170)
[2024-08-29 16:04] LABS: Percent Iron Saturation 27 % (20-50)
[2024-08-29 16:18] LABS: Urine Cotinine NEGATIVE
[2024-08-29 16:53] LABS: Hemoglobin A1C 5.4 % (<5.7)
== END 2024-08-29 13:10 | disposition home or self-care (01) ==
PROVIDERS: Nurse Practitioner Family; PCP Nurse Practitioner Family; Visit Provider Orthopaedic Surgery
DX: G25.81 Restless legs syndrome (principal); E78.5 Hyperlipidemia, unspecified; Z79.899 Other long term (current) drug therapy; R73.03 Prediabetes; M19.012 Primary osteoarthritis, left shoulder
CPT/HCPCS: 36415; 73200; 80307; 82040; 82565; 82728; 82947; 83036; 83540; 83550; 85014; 85018

== ENCOUNTER 2024-11-07 14:13 | Outpatient (CLI) | payer MEDICARE, MEDICAID, SELFPAY ==
--- OUTSIDE RECORDS SUMMARY | 2024-11-07 13:07 | XMS_ITS | Clinical Summary ---
Author Organization [facility] Address [address] [place] [place] [address] Care Team Providers Care Tongue Stitcher Name Role Phone Srini Ward MD Primary Care Provider [phone] [facility],non-owned Affiliates and Associated Physician Practices is amultiple site organization consisting of ambulatory clinics and hospital sitesin [place], [place], [place] and [place]. This disclosure is being madepursuant to the Care Everywhere program and may not contain all information available regarding this patient. Last updated 17.[facility] Allergies Active Allergy Reactions Criticality Noted Date [...] on file Legal Sex Female 5:28 PM BUSINESS INTERN Gender Identity Not on file Sexual Orientation [...] 10:45 AM CDT Height 170.2 cm (5' 7) 08/04/2017 10:45 AM CDT Body Mass Index [...] SCREENING 1958 MEDICARE AWV 12 MONTHS 1958 DTAP/TDAP/TD VACCINES (1 - Tdap) 1977 LUNG CANCER SCREENING 2008 PNEUMOCOCCAL VACCINE 50+ (1 of 1 - PCV) 2008 ZOSTER VACCINE (1 of 2) 2008 MAMMOGRAM 05/05/2020 05/05/2018 COVID-19 VACCINE (3 - 2023-2 5 season) 2023 11/10/2020, 10/20/2020 DEPRESSION SCREENING 04/11/2024 INFLUENZA VACCINE (#1) 2024 Respiratory Syncytial Virus (RSV) Vaccine Pt: [...] 0.01 <1.00 [facility] Comment: Test Performed at: [facility] [address] [place] [address] CARINA MACIAS DO,MPH 10/25/2017 10:3 2 AM CDT 10/25/2017 10:34 AM CDT us Sugey Carolina MD LAB - CHEMISTRY ORDERA BLES Final Result [facility] [address] [place] [address] from Last 3 Months or Most Recently Relevant to Health Maintenance Insurance MEDICAID - OUT OF STATE MEDICARE MEDICARE Care Teams Tongue Stitcher Relationship Specialty Start Date End Date Srini Ward MD [address] [place] [address] PCP - General 07/27/16
--- OUTSIDE RECORDS SUMMARY | 2024-11-07 13:07 | XMS_ITS | Clinical Summary ---
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 [place] [address] MEDICARE [facility] Address: [address] [address] [place] [address] [address]PA [address] Contractor Relationship Specialty [place] [address] [place] [address] PCP - General Family Practice 10/16/19 [place] [address] [place] [address] Medical Oncologist/Bank Vault Custodian Hematology and Oncology 04/25/20
--- OUTSIDE RECORDS SUMMARY | 2024-11-07 13:07 | XMS_ITS | Referral Summary ---
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
--- OUTSIDE RECORDS SUMMARY | 2024-11-07 14:36 | XMS_ITS | Encounter Summary ---
Author Organization [facility] Address [facility] [place] [address] Care Team Providers Care Roofer Assistant Name Role Phone Telma Dahl NP Primary Care Provider Unav arlinable Scarlet Yañez MD Unavailable [phone] Marya Castellanos MD Primary Care Provider [phone] Marya Castellanos MD Primary Care Provider [phone] Encounter Details Date Type Department Care Team (Late st Contact Info) Description 05/14/2019 Abstract [facility] at [address] [id number] Kevin Self MA Social History Tobacco Use Types Packs/Day Years Used Date Smoking Tobacco: Every Day Cigarettes 1 52.6 Started: 1975 Smokeless Tobacco: Never Alcohol Use Standard Drinks/Week [...] Sex Assigned at Female 02/26/2019 10:09 AM ENGINEERING INTERN Legal Sex Female 1:46 AM CDT Gender Identity Female 02/26/2019 10:09 AM ENGINEERING INTERN Sexual Orientation Straight 02/26/2019 10 :09 AM ENGINEERING INTERN Occupation Industry Job Start Date Job End [...] documented as of this encounter Care Teams Roofer Assistant Relationship Specialty Start Date End Date Telma Dahl NP PCP - General NURSE PRACTITIONER 02/28/19 01/22/21 [place] [address] [place] [address] PCP - General FAMILY PRACTICE 01/23/21 11/22/21 [place] [address] [place] [address] PCP - General FAMILY PRACTICE 11/23/21 Scarlte Yañez MD [facility] [address] [place] [address] [place] Guillotine Trimmer INTERVENTIONAL CARDIOLOGY 02/28/19 documented as of this encounter
--- OUTSIDE RECORDS SUMMARY | 2024-11-07 14:36 | XMS_ITS | Clinical Summary ---
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 [place] [address] MEDICARE IDPA Care Teams Ventilator Specialist Relationship Specialty [place] [address] [place] [address] PCP - General Family Practice 10/16/19 [place] [address] [place] [address] Medical Oncologist/Spring Assembler Supervisor Hematology and Oncology 04/25/20
--- OUTSIDE RECORDS SUMMARY | 2024-11-07 14:36 | XMS_ITS | Referral Summary ---
Author Organization [facility] Address [address] [place] [address] Phone Care Team Providers Care Patent Law Specialist Name Role Phone Telma Dahl NP Primary Care Provider [phone] Reuben Hyatt MD Unavailable [phone] Allergies Active Allergy Reactions Criticality Noted [...] on file Legal Sex Female 11:01 AM WELLNESS COORDINATOR Gender Identity Not on file Sexual Orientation [...] file Insurance MEDICARE MEDICARE IDPA Care Teams Patent Law Specialist Relationship Specialty [place] [address] [place] [address] PCP - General Family Practice 10/16/19 [place] [address] [place] [address] Medical Oncologist/Service Tester Hematology and Oncology 04/25/20
--- OUTSIDE RECORDS SUMMARY | 2024-11-07 14:36 | XMS_ITS | Encounter Summary ---
Author Organization [facility] Address [address] [place] [address] Care Team Providers Care Design Inserter Name Role Phone Scarlet Yañez MD Unavailable [phone] Marya Castellanos MD Primary Care Provider [phone] Encounter Details Date Type Department Care Team (Late st Contact Info) Description 11/23/2021 [employer] Message Enc [facility] Family & Internal Medicine [address] [place] [address] [address] 1,2,3 [place], [facility] Provider pain medication. Social History Tobacco Use Types Packs/Day Years Used Date Smoking Tobacco: Every Day Cigarettes 1 52.6 Started: 1972 Smokeless Tobacco: Never Alcohol Use [...] Sex Assigned at Female 02/26/2019 10:09 AM CRIMINAL INVESTIGATOR CUSTOMS Legal Sex Female 1:46 AM CDT Gender Identity Female 02/26/2019 10:09 AM CRIMINAL INVESTIGATOR CUSTOMS Sexual Orientation Straight 02/26/2019 10 :09 AM CRIMINAL INVESTIGATOR CUSTOMS Occupation Industry Job Start Date Job End [...] documented as of this encounter Care Teams Design Inserter Relationship Specialty [place] [address] [place], [place] [id number] PCP - General FAMILY PRACTICE 11/23/21 Scarlet Yañez MD [facility] [address] [place] [address] Jose Elias Delivery Manager INTERVENTIONAL CARDIOLOGY 02/28/19 documented as of this encounter
--- OUTSIDE RECORDS SUMMARY | 2024-11-07 14:36 | XMS_ITS | Clinical Summary ---
Author Organization [facility] Address [address] [place] [address] Care Team Providers Care Regrind Mill Operator Name Role Phone Scarlet Yañez MD Unavailable [phone] Marya Castellanos MD Primary Care Provider [phone] Allergies Active Allergy Reactions Criticality Noted Date Comments Latex Redness Low 11/08/2014 Oxycodone-Acetaminophen Rash High 10/14/2016 Penicillins Hives Low 11/08/2014 Medications albuterol sulfate HFA 108 (90 Base) MCG/ACT inhalerIndications :Panlobular emphysema ([facility]/HCC [facility]) Inhale 2 puffs into the lungs every [...] AT BEDTIME 30 tablet 2 Active Umeclidinium Varney (INCRUSE ELLIPTA) 62.5 MCG/INH AEROSOL POWDER, BREATH ACTIVATEDIndicatio ns:Panlobular emphysema ([facility] HHS/[facility]) Inhale 1 puff into the lungs daily. [...] 08/04/2017 Lung nodule, multiple 07/06/2017 Panlobular emphysema ([facility] HHS/[facility]) 8 Pulmonary hypertension ([facility] HHS/[facility]) 018 Tobacco use disorder 07/06/2017 GERD (gastroesophageal reflux disease) 6 Nicotine dependence 07/31/2015 Pulmonary nodule 07/29/2015 Chronic obstructive pulmonary disease ([facility] H HS/HCC) 11/12/2014 Mediastinal adenopathy 11/08/2014 PVD [...] 1 52.6 Started: 1972 Smokeless Tobacco: Never Tobacco Cessation:Ready [...] Sex Assigned at Female 02/26/2019 10:09 AM MID LEVEL PROVIDER Legal Sex Female 1:46 AM CDT Gender Identity Female 02/26/2019 10:09 AM MID LEVEL PROVIDER Sexual Orientation Straight 02/26/2019 10 :09 AM MID LEVEL PROVIDER Occupation Industry Job Start Date Job End [...] 8:28 AM CDT Height 170.2 cm (5' 7) 08/21/2021 8:28 AM CDT Body Mass Index [...] series) 2018 Mammogram Screening 05/05/2020 05/05/2018, 05/04/2017 Annual Medicare Wellness Visit 09/16/2023 Dexa Scan (General) 09/16/2023 02/14/2018 COVID-19 Vaccine [...] to Health Maintenance Insurance [employer] Care Teams Regrind Mill Operator Relationship Specialty [place] [address] [place] [address] PCP - General FAMILY PRACTICE 11/23/21 Scarlet Yañez MD [facility]. [facility] [address] [place] [address] [place] Assistant Professor Of Marine Biology INTERVENTIONAL CARDIOLOGY 02/28/19
--- OUTSIDE RECORDS SUMMARY | 2024-11-07 14:36 | XMS_ITS | Encounter Summary ---
Author Organization [facility] Address [address] [place] [address] Care Team Providers Care Furnace Operator And Tender Name Role Phone Scarlet Yañez MD Unavailable [phone] Marya Castellanos MD Primary Care Provider [phone] Encounter Details Date Type Department Care Team (Late st Contact Info) Description 11/25/[address] [facility] Family & Internal Medicine [address] [address] [employer], [facility] Provider norco refills Social History Tobacco Use [...] Sex Assigned at Female 02/26/2019 10:09 AM TEACHER RESOURCE Legal Sex Female 1:46 AM CDT Gender Identity Female 02/26/2019 10:09 AM TEACHER RESOURCE Sexual Orientation Straight 02/26/2019 10 :09 AM TEACHER RESOURCE Occupation Industry Job Start Date Job End [...] documented as of this encounter Care Teams Furnace Operator And Tender Relationship Specialty Start [place] [address] [place] [address] PCP - General FAMILY PRACTICE 11/23/21 Scarlet Yañez MD [facility] [address] [place] [address] Jose Elias Welt Stitch Cleaner INTERVENTIONAL CARDIOLOGY 02/28/19 documented as of this encounter
--- OUTSIDE RECORDS SUMMARY | 2024-11-07 14:36 | XMS_ITS | Clinical Summary ---
Author Organization [facility] Address [address] [facility] [place] [address] Care Team Providers Care Security System Sales Consultant Name Role Phone Srini Ward MD Primary Care Provider [phone] Source Comments [facility],non-owned Affiliates and Associated Physician Practices is amultiple site organization consisting of ambulatory clinics and hospital sitesin [place], [place], [place] and [place]. This disclosure is being madepursuant to the Care Everywhere program and may not contain all information available regarding this patient. Last updated 17.[facility] Allergies Active Allergy Reactions Criticality Noted Date [...] on file Legal Sex Female 5:28 PM FOOD SAFETY DIRECTOR Gender Identity Not on file Sexual Orientation [...] 0.01 <1.00 [facility] Comment: Test Performed at: [employer] [facility] [place] [address] [place] [address] CARINA MACIAS DO,MPH 10/25/2017 10:3 2 AM CDT 10/25/2017 10:34 AM CDT us Sugey Carolina MD LAB - CHEMISTRY ORDERA BLES Final Result [facility] [address] [place] [address] from Last 3 Months or Most Recently Relevant to Health Maintenance Insurance MEDICAID - OUT OF STATE MEDICARE MEDICARE Care Teams Security System Sales Consultant Relationship Specialty Start Date End Date Srini Ward MD [address] [place] [address] PCP - General 07/27/16
[2024-11-07 15:25] LABS: Hematocrit 45.3 % (37.0-47.0); Hemoglobin 15.0 g/dL (12.0-15.0); Immature Granulocyte Percent A 0.4 % (0-0.5); Lymphocytes Absolute Auto 1.56 K/mm3 (0.9-3.2); Mean Corpuscular HGB Conc 33.1 g/dl (32-36); Mean Corpuscular Hemoglobin 31.2 pg (26-34); Mean Corpuscular Volume 94.2 fl (80-100); Nucleated Red Blood Cells Absolute Auto 0.000 K/mm3 (0.0-0.012); Nucleated Red Blood Cells Perc 0.0 % (0.0-0.2); Platelet Count Result 242 k/mm3 (150-375); Red Blood Count 4.81 M/mm3 (4.2-5.4); White Blood Count 7.8 K/mm3 (4.5-10.0)
[2024-11-07 16:36] LABS: MRSA (PCR) NOT DETECTED (NOT DETECTE)
--- NOTE | 2024-11-08 | ECG_ITS ---
Test Date: 2024-11-07 15:14:30 Measurements Intervals [place] Rate: 53 P: 82 MO: 143 QRS: 69 QRSD: 82 T: 48 QT: 425 QTc: 402 Interpretive Statements SINUS BRADYCARDIA No previous ECG available for comparison Electronically Signed On 11-08-2024 11:01:47 CDT by Fracisco Gan M.D.
== END 2024-11-07 14:14 | disposition home or self-care (01) ==
LOC: ANHSURGERY 14:24
PROVIDERS: PCP Nurse Practitioner Family; Visit Provider Orthopaedic Surgery
DX: M12.812 Other specific arthropathies, not elsewhere classified, left shoulder (principal); E78.5 Hyperlipidemia, unspecified; I10 Essential (primary) hypertension
CPT/HCPCS: 36415; 85025; 87641; 93005

== ENCOUNTER 2024-12-06 01:11 | Day surgery (SDC) | payer MEDICARE, MEDICAID, SELFPAY ==
[2024-11-07 14:32] VITALS: BP 103/75; PULSE 57; RESP 16; TEMP 36.9; O2SAT 93; BMI 28.8
--- NOTE | 2024-11-07 14:46 | PC.NURSE ---
Report to the Outpatient Waiting Room, entrance under the green pavilion located off [facility], at time ___0600am____ on date __12/06/24 . Planned Procedure Time: 0730am .? Time changes happen often and if your time is changed the preop area will call you the afternoon before. - You and your visitor will be asked to self-screen and do not enter if you have any COVID symptoms. Please call surgeon if you need to reschedule. - A mask is optional within the hospital at this time. Patients may have clear liquids (water, carbonated beverages, clear teas, apple juice) until 3 hours prior to surgery with a maximum of 20 ounces. - No food from midnight until time of surgery and no smoking, or chewing tobacco (or any form of nicotine). No chewing gum, candy or mints. (0430am) Take only the following medications with a SIP of water on the morning of surgery: ___Atenolol,Escitalopram, and Hydrocodone if needed DO NOT STOP ANY OF YOUR OTHER PRESCRIPTION MEDICATIONS PRIOR TO SURGERY EXCEPT THE FOLLOWING Hold all vitamins and supplements for 3 days per anesthesiologist. Date of last dose is 12/02/24 Medications to discontinue per physician ____NO ASPIRIN or NSAIDS/MOTRIN/ALEVE for [address] Avelar Date to take last dose____11/27/24 Please no make-up, nail tristanian, hairspray, perfume, deodorant, or body powder the day of surgery.? No jewelry (including any body piercings) or valuables the day of surgery, leave them at home.? Please take a shower or bath the night before, or the morning of, surgery with an antibacterial soap.? (GOLD DIAL) Wear comfortable, loose fitting clothing.? Overnight bag, cell phone /Rd Project Manager, good shoes - Jewelry must be removed prior to entering the operating room.? Rings and piercings that are not removed may be cut off. - The hospital will not accept responsibility for valuables.? - Please leave all valuables, including medications, at home the day of surgery. If you are going home after surgery, a licensed commercial front load driver must drive you home.? - NO public transportation without another adult if you receive anesthesia. - We recommend that an adult stay with you for 24 hours following discharge. - We also recommend that you do not drive, make important decision, drink alcoholic beverages, or take any drugs that were not prescribed by your health care provider for at least 24 hours after your discharge time. Follow any additional instructions given to you from your surgeon. Telephone instructions given to ___Patient and asked if any additional questions and then verbalized understanding. Patient advised to call surgeon office or pre surgery nurse liaison [phone] if any additional questions.
[2024-12-06] VITALS (13 sets, daily range): BP systolic 100–156; BP diastolic 56–90; PULSE 56–98; RESP 14–22; TEMP 36.1–36.9; O2SAT 92–100
--- NOTE | ~2024-12-06 | XR_ITS ---
EXAMINATION: XR shoulder LT min 2V DATE: 12/06/2024 10:18 INDICATION: Left shoulder arthroplasty TECHNIQUE: 2 views left shoulder FINDINGS: There is a left total shoulder arthroplasty in expected position. Subcutaneous gas with soft tissue swelling are consistent with recent surgery. IMPRESSION: 1. Recent left total shoulder arthroplasty. Reviewed, dictated and finalized at location O.
[2024-12-06] MEDS: LACTATED RINGERS 1,000 ML 30 ML IV CONT ×2 (06:34→09:40)
[2024-12-06] MEDS: ACETAMINOPHEN 500 MG TABLET 1000 MG PO (06:35)
[2024-12-06] MEDS: TRANEXAMIC ACID 1,000MG/ISO100 1,000 MG/100 ML BAG 200 MG IVPB (06:35)
--- NOTE | 2024-12-06 06:49 | P.PNAN_ITS ---
Anes - Initial Pre Proc Eval Procedure: Operation Date: 12/06/24 07:30 Proposed Procedures p Left Reverse Total Shoulder Arthroplasty - Cesar Avelar MD Date/Time: 12/06/24 06:49 Surgeon: Cesar Avelar MD Pre Op Diagnosis: left rotator cuff arthropathy Patient Data Age: 64 Gender: F Height: 1.7 m Weight: 83.6 kg Last Vital Signs Temp 36.9 C 11/07/24 14:32 Pulse 57 L 11/07/24 14:32 Resp 16 11/07/24 14:32 BP 103/75 11/07/24 14:32 Pulse Ox 93 11/07/24 14:32 O2 Del Method Room Air 11/07/24 14:32 Allergies Allergy/AdvReac Type Severity Reaction Status Date / Time latex Allergy Intermediate Rash Verified 12/06/24 06:13 Penicillins Allergy Unknown Hives Verified 12/06/24 06:13 Home Medications ?Medication ?Instructions ?Recorded ?Confirmed ?Type hydrocodone 7.5 mg-acetaminophen 1 tablet PO Q8H PRN p ain #32 tabs 10/19/23 12/06/24 Rx 325 mg tablet escitalopram oxalate 20 mg tablet See Rx Instructions .Route 08/15/24 12/06/24 Rx .COMPLEX #90 tabs atenolol 25 mg tablet See Rx Instructions .Route 0 08/27/24 12/06/24 Rx .COMPLEX #90 tabs umeclidinium 62.5 mcg/actuation See Rx Instructions .R oute 09/12/24 12/06/24 Rx blister powder for inhalation .COMPLEX #90 ea (Incruse Ellipta) rosuvastatin 20 mg tablet See Rx Instructions .Route 0 11/28/24 12/06/24 Rx .COMPLEX #90 tabs Patient hx anesthesia problems: none Family hx anesthesia problems: none Results Review: All pre-operative results and documents have been reviewed as part of the pre-o perative evaluation. [facility] Past Medical History Medical History Chronic, continuous use of opioids hydrocodone Hyperlipidemia SVT (supraventricular tachycardia) Inflammatory arthritis Breast cancer Anxiety Anemia Depression COPD (chronic obstructive pulmonary disease) Surgical History Surgical History Status post total hip replacement, right (~12/01/23) H/O skin graft H/O oral surgery H/O lumpectomy H/O section Family History Family History Mother Breast cancer Father Cirrhosis Social History Social History Smoking packs per day: 1 Smoking cigarettes per day: 20.0 Years smoked: 45 Smoking pack-years: 45.00 Smoking status: Former smoker Tobacco type: cigarettes and e-cigarettes/vaping Smoking end date: 08/10/23 Additional smoking assessment comments: CURRENTLY VAPES BUT WITH NO NICOTINE Alcohol intake: current Drinks per week: 7 Alcohol use details: 2 drinks/day Substance use: current Substance use type: marijuana Other substance usage details: SMOKING MARIJUANA DAILY SINCE 2014 Last use: 02/05/24 Do You Feel Safe in your Home?: Yes Lack of Transportation: No Lack of Food: Never True Current Housing: I Have Housing Concerned About Future Housing: No Difficulty Paying Gas/Electric Bills: No Difficulty Paying for Meds: No Currently Unemployed: No Education: High School Diploma/GED Difficulty w/ Childcare or Family Care: No Living arrangements: with family Occupation/Education: unemployed Spiritual care concerns: No Anes - Eval Final PreProcedure Day of Procedure 12/06/24 06:49 Patient weight: overweight Heart: regular rate and rhythm Lungs: clear to auscultation Airway: Mallampati scale class II Neurological: alert and oriented Last oral intake: >/= 8 hours ASA classification: III Emergent: no Anesthetic plan: proceed Anesthesia type and monitoring: general ETT and standard monitoring Results Review: All pre-operative results and documents have been reviewed as part of the pre- operative evaluation. Informed Consent: The patient's anesthetic plan and its attendant risks and benefits were disc ussed with the patient/family/POA. Questions were solicited and answers provided to the satisfaction of the patient/family/POA.
--- NOTE | 2024-12-06 07:11 | WPDHPUPDATE1 ---
History and Physical Update Update Date/Time: 12/06/24 07:11 History and Physical has been reviewed, including an updated exam of the patient. There are NO changes in the patient's condition. Risks, benefits, and alternatives have been discussed and questions answered. Patient agrees to proceed with procedure.
[2024-12-06] MEDS: ceFAZolin 2 GM in SODIUM CHLORIDE 0.9% IV 50 ML 100 ML IVPB ×3 (07:24→23:31)
[2024-12-06] MEDS: VANCOMYCIN HCL 1,000 MG VIAL 1000 MG TOPICAL (08:19)
[2024-12-06] MEDS: TRANEXAMIC ACID 1,000 MG/10 ML AMPUL 1000 MG IV PUSH (09:13)
--- NOTE | 2024-12-06 09:29 | WPDANESPNB ---
Anes - Peripheral Nerve Block Date/Time: 12/06/24 09:29 I have discussed with the patient/family/POA the placement of a peripheral nerve block for post-operative pain management, including associated risks, benefits, complications, and side effects. Alternative methods of post-operative analgesia were detailed. Questions were solicited and answers provided to the satisfaction of the patient/family/POA. Time-Out: A pre-procedural Time-Out was completed immediately before starting the procedure and confirmed: Patient Identification, Site, Procedure, Patient Position and the Availability of Requisite Equipment. Clinical Indications: Acute post-operative pain management requested by the operative surgeon. Nerve Block Insertion Note Anes-nerve block: interscalene left Patient position: supine Skin prep: chlorhexidine Needle: 22 gauge, stimulating, insulated echogenic needle. Needle length: 50 mm Technique: ultrasound Injectate: bupivacaine 0.5% with epi 5 mcg/ml (20cc- no epi) Observations: tolerated well Complications: none Procedure start time:: 951 Procedure end time:: 955
--- NOTE | 2024-12-06 09:30 | P.OP_ITS ---
Procedure Note - Detailed Date of Procedure 12/06/24 Pre-op Diagnosis Left rotator cuff arthropathy Post-op Diagnosis Same Procedure Performed Reverse total shoulder arthroplasty, left Surgeon Cesar Avelar MD Anesthesia General and Regional (Interscalene block.) Findings Moderate osteoarthritis and cuff tearing. Large spur at the inferior humeral head. No contracture. Description of Procedure Preoperative antibiotics were given. The patient was transferred to the operating room and a general anesthetic was administered. The beach chair position was used at 45 degrees. All bony prominences were padded. The head was carefully stabilized on the [facility] cathead worker. A sterile prep and drape was performed in the usual manner with ChloraPrep. A longitudinal incision was created at the anterior shoulder just lateral to the deltopectoral interval. Car eful dissection was performed to expose the interval and protect the cephalic vein. The vein was retracted medially. Anterior circumflex vessel branches were suture ligated. The biceps was tenodesed. A subscapularis tenotomy was performed. The inferior capsule was released, exposing the humeral head. Osteophytes were removed. Care was taken to stay on bone to protect the axillary nerve. The neck anteversion and inclination were carefully assessed. Version was between 20? and 30?. The anatomic head cut was taken with the oscillating saw. The cut protector was placed, and attention was turned to the glenoid. Retractors were placed. Releases were carried out for exposure. The subscapularis was mobilized, the inferior capsule and long head of triceps released, and the superior and middle glenohumeral ligaments released as well. Labral tissue was resected as needed. Version and inclination were corrected according to preoperative templating. The sizing template was used to assess the baseplate position low on the glenoid, with an approximate 5 degrees corrections of retroversion and 5 degrees of inclination. A guide pin was placed. Minimal reaming was used to accomplish a flat surface without violating the subchondral bone. The boss was drilled, and the real component was impacted into position. The central compression screw was placed. Supplemental locking screws were plac ed superiorly, anteriorly and inferiorly. The glenosphere was impacted into the taper. Attention was turned to the humerus. The guide pin was placed, central drilling performed, and the broach trial inserted. The proximal humerus was reamed for the inset component. The humeral components were trialed. The real humeral stem, tray, and insert were impacted into position. The shoulder was copiously irrigated periodically with pulsatile lavage. The shoulder was reduced and stability confirmed. 1 gram of Vancomycin powder was placed in the joint. The remaining tissue was closed with 2-0 Vicryl, 3-0 Stratafix and 4-0 Stratafix, and steri-strips. A sterile silver occlusive dressing and shoulder immobilizer were placed. The patient was transferred to the recovery room. The patient was given an interscalene block in the post-operative area. Implants Shoulder [employer]ations reverse TSA size 0 stem. +3 polyethylene insert. Standard baseplate. 33 + 3 mm glenosphere. Estimated Blood Loss 50 Drains No Pathology None sent Complications No immediate complications Condition Stable Disposition PACU [facility] Billing Surgery - Charge Forward: Surgery Billing
[2024-12-06] MEDS: fentaNYL CITRATE INJ (*CRX) 100 MCG/2 ML VIAL 25 MCG IV PUSH (09:51)
[2024-12-06] MEDS: fentaNYL CITRATE INJ (*CRX) 100 MCG/2 ML VIAL 75 MCG IV PUSH (09:55)
[2024-12-06] MEDS: oxyCODONE/ACETAMINOPHEN (*CRX) 10-325 MG TABLET 1 TAB PO (11:13)
[2024-12-06] MEDS: SODIUM CHLORIDE 0.9% IV 1,000 ML 125 ML IV CONT (12:00)
--- NOTE | 2024-12-06 12:59 | ADMGEN ---
This patient, Swati Flannery, was admitted to [facility] Surg Room 312-01. Patient/family oriented to hospital policies and general routines including ID bracelet, bed and alarms, visiting hours, pain management, procedures, bathroom and other care routines, personal items, smoking policy, room service/diet, and visiting hours. Information on how to activate the Rapid Response Team has been discussed. Patient/Family are encouraged to report perceived risks to care and to ask questions if they do not understand what they are told or what they should do. Pt sent to the room with belongings. Pt extremely agitated/frustrated at pain, fingers tingling, itching. Pt repetitive complaints of fingers tingling/numbness. Pt sig other helped pt unpack belongings. Pt brought home medications and took her atenolol, cholesterol medication, stool softener. Pt denies taking any control medications. Home medications removed from room. Will notify physician and create note documenting as such.
[2024-12-06] MEDS: ACETAMINOPHEN 325 MG TABLET 650 MG PO ×2 (18:32→23:30)
[2024-12-06] MEDS: ASPIRIN 81 MG ENTERIC TABLET PO (18:33)
[2024-12-06] MEDS: MELOXICAM 7.5 MG TABLET PO (18:33)
[2024-12-06] MEDS: SENNA/DOCUSATE SODIUM TABLET 2 TAB PO (18:34)
--- NOTE | 2024-12-06 19:59 | PC.NURSE ---
Pt to floor post op. Pt neuro performed, shoulder pain negligible at this time, but states chronic neck pain a 7. Pt given oxycodone but very agitated r/t numbness/tingling to fingers r/t block. Informed pt we would let her rest and come back shortly to do her admission. Pt left with bed alarm on. S.O. Fuad in room with pt. This RN and preceptee RN into room. Pt home medications found on bedside table. Pt states she took her home meds. Confirmed with pt that she did not take any controlled medications. She states she took atenolol, cholesterol pill, nerve pill. This RN took her home meds and placed them in the med room in the home med drawer. Pt educated on importance of not taking any other medications/substances other than what nursing gives. Pt questioned whether she was going to . This RN assured pt we would monitor her closely. Pt BP was 80s/40s, manual showed 90s/50s. IVFs started, Valentino notified. Rechecked BP one hour later and BP was 107/64. Valentino gave no new orders at this time.
[2024-12-06] MEDS: CALCIUM CARBONATE (TUMS) 500 MG (200 MG ELEMENTAL) PO (20:43)
[2024-12-07] MEDS: oxyCODONE/ACETAMINOPHEN (*CRX) 10-325 MG TABLET 1 TAB PO ×2 (00:19→11:25)
[2024-12-07 00:37] VITALS: BP 143/76; PULSE 77; RESP 16; TEMP 36.3; O2SAT 97
[2024-12-07 04:37] VITALS: BP 125/73; PULSE 59; RESP 16; TEMP 36.2; O2SAT 95
[2024-12-07] MEDS: ACETAMINOPHEN 325 MG TABLET 650 MG PO (05:20)
[2024-12-07 06:22] LABS: Hematocrit 38.8 % (37.0-47.0); Hemoglobin 12.7 g/dL (12.0-15.0); Immature Granulocyte Percent A 0.4 % (0-0.5); Lymphocytes Absolute Auto 0.73 K/mm3 (0.9-3.2); Mean Corpuscular HGB Conc 32.7 g/dl (32-36); Mean Corpuscular Hemoglobin 31.8 pg (26-34); Mean Corpuscular Volume 97.0 fl (80-100); Nucleated Red Blood Cells Absolute Auto 0.000 K/mm3 (0.0-0.012); Nucleated Red Blood Cells Perc 0.0 % (0.0-0.2); Platelet Count Result 183 k/mm3 (150-375); Red Blood Count 4.00 M/mm3 (4.2-5.4); White Blood Count 14.0 K/mm3 (4.5-10.0)
[2024-12-07 06:40] LABS: Anion Gap 7 mmol/L (4-12); Blood Urea Nitrogen 13 mg/dL (7-17); Calcium 8.9 mg/dL (8.4-10.2); Carbon Dioxide 25 mmol/L (22-30); Chloride 105 mmol/L (98-107); Estimated CRCL calculation 67 ml/min; Estimated Glomerular Filt Rate > 60; Glucose 120 mg/dL (65-110); Potassium 4.2 mmol/L (3.4-5.0); Sodium 137 mmol/L (137-145)
[2024-12-07 08:37] VITALS: BP 123/66; PULSE 65; RESP 18; TEMP 36.4; O2SAT 97
[2024-12-07 09:21] VITALS: PULSE 61
[2024-12-07] MEDS: ASPIRIN 81 MG ENTERIC TABLET PO (09:21)
[2024-12-07] MEDS: MELOXICAM 7.5 MG TABLET PO (09:23)
[2024-12-07] MEDS: ESCITALOPRAM OXALATE 10 MG TABLET 20 MG PO (09:23)
[2024-12-07] MEDS: ROSUVASTATIN 20 MG TABLET BY MOUTH (09:23)
[2024-12-07] MEDS: SENNA/DOCUSATE SODIUM TABLET 2 TAB PO (09:24)
[2024-12-07] MEDS: ceFAZolin 2 GM in SODIUM CHLORIDE 0.9% IV 50 ML 100 ML IVPB (09:34)
[2024-12-07] MEDS: CALCIUM CARBONATE (TUMS) 500 MG (200 MG ELEMENTAL) PO (10:17)
== END 2024-12-07 11:30 | disposition home or self-care (01) ==
LOC: ANHSURGERY 09:30 → ANH3MEDSUR 11:02
PROVIDERS: PCP Nurse Practitioner Family; Visit Provider Orthopaedic Surgery
PROC: (CPT 23472; principal; 2024-12-06 07:30)
DX: M19.012 Primary osteoarthritis, left shoulder (principal); M25.712 Osteophyte, left shoulder; M75.102 Unspecified rotator cuff tear or rupture of left shoulder, not specified as traumatic; G89.18 Other acute postprocedural pain; E78.5 Hyperlipidemia, unspecified; D64.9 Anemia, unspecified; J44.9 Chronic obstructive pulmonary disease, unspecified; F41.9 Anxiety disorder, unspecified; F32.A Depression, unspecified; I47.10 Supraventricular tachycardia, unspecified; M06.4 Inflammatory polyarthropathy; F17.290 Nicotine dependence, other tobacco product, uncomplicated; F12.90 Cannabis use, unspecified, uncomplicated; Z79.891 Long term (current) use of opiate analgesic; Z98.890 Other specified postprocedural states; Z85.3 Personal history of malignant neoplasm of breast; Z80.3 Family history of malignant neoplasm of breast
CPT/HCPCS: 64415; 23472; 36415; 73030; 80048; 85025; 86850; 86900; 86901; 97110; 97161; 97166; 97530; 97535; J0690; A4565; A9270; C1776; J0166; J1100; J1171; J1200; J1885; J2003; J2250; J2270; J2405; J2704; J2795; J3010; J3373; J7030; J7120; J7512

== ENCOUNTER 2024-12-21 09:07 | Outpatient (CLI) | payer MEDICARE, MEDICAID, SELFPAY ==
--- NOTE | ~2024-12-21 | XR_ITS ---
EXAMINATION: XR shoulder LT min 2V, 12/21/2024 9:20 CDT HISTORY: presence of artifcial shoulder joint COMPARISON: No comparisons available. Findings: No acute fracture or malalignment. Left arthroplasty intact Soft tissues unremarkable. Impression: No acute fracture or malalignment. Reviewed, dictated and finalized at location A. Impression: No acute fracture or malalignment.
--- OUTSIDE RECORDS SUMMARY | 2024-12-21 09:28 | XMS_ITS | Clinical Summary ---
Author Organization [facility] Address [address] [place] [address] Care Team Providers Care Inbound Customer Service Representative Name Role Phone Srini Ward MD Primary Care Provider [phone] Source Comments [facility],non-owned Affiliates and Associated Physician Practices is amultiple site organization consisting of ambulatory clinics and hospital sitesin [place], [place], [place] and [place]. This disclosure is being madepursuant to the Care Everywhere program and may not contain all information available regarding this patient. 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 Gender Identity Not on file Sexual Orientation [...] 08/04/2017 10:45 AM CDT Plan of Treatment Upcoming Encounters Date Type Department Care Team (Late st Contact Info) Description 02/14/2025 1:40 PM HALL MONITOR Office Visit [facility] - General Dermatology [address] [place] [address] Shirin Power, DO [address] [place] [address] Health Maintenance Due Date Last Done Comments [...] (1 of 2) 2008 MAMMOGRAM 05/05/2020 05/05/2018 DEPRESSION SCREENING 04/11/2024 COVID-19 VACCINE (3 - 2024-2 6 season) 2024 11/10/2020, 10/20/2020 INFLUENZA VACCINE (#1) 2024 Respiratory Syncytial Virus [...] 0.01 <1.00 [facility] Comment: Test Performed at: [email or web address] [address] [place] [address] CARINA MACIAS DO,MPH 10/25/2017 10:3 2 AM CDT 10/25/2017 10:34 AM CDT us Sugey Carolina MD LAB - CHEMISTRY JUSTIN HUMMEL Final Result [facility] [id number] [place] [address] from Last 3 Months or Most Recently Relevant to Health Maintenance Insurance MEDICAID - OUT OF STATE MEDICARE MEDICARE Care Teams Inbound Customer Service Representative Relationship Specialty Start Date End Date Srini Ward MD [address] [facility] [address] [place] [address] PCP - General 07/27/16
--- OUTSIDE RECORDS SUMMARY | 2024-12-21 09:28 | XMS_ITS | Clinical Summary ---
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 [place] [address] MEDICARE [facility] Address: [address] [address] [place] [address] [employer] Care Teams Cable Technician Relationship Specialty [place] [address] [place] [address] PCP - General Family Practice 10/16/19 [place] [address] [place] [address] Medical Oncologist/[facility] 04/25/20
== END 2024-12-21 09:08 | disposition home or self-care (01) ==
PROVIDERS: PCP Nurse Practitioner Family; Visit Provider Physician Assistant Surgical
DX: Z96.612 Presence of left artificial shoulder joint (principal)
CPT/HCPCS: 73030